=== PATIENT | female | born 1955 | race Caucasian/White ===

== ENCOUNTER → 2021-10-11 00:31 | Outpatient (CLI) | payer OTHER, SELFPAY ==
[2021-10-11 11:07] LABS: SARS-CoV-2 RNA PCR Negative
== END ==
PROVIDERS: PCP Internal Medicine; Visit Provider Internal Medicine
DX: J06.9 Acute upper respiratory infection, unspecified (principal); Z20.822 Contact with and (suspected) exposure to COVID-19
CPT/HCPCS: C9803; U0003; U0005

== ENCOUNTER 2024-10-24 00:35 | Day surgery (SDC) | payer MEDICARE, SELFPAY ==
[2024-10-08 11:59] VITALS: BMI 26.8
--- OUTSIDE RECORDS SUMMARY | 2024-10-24 00:39 | XMS_ITS | Data Portability ---
Author Organization [place] [facility], Main Office Address [address] [place] [address] Care Team Providers Care Mortgage Or Loan Underwriter Name Role Phone VASYL XAVICAROLINA Primary Care Provider LITA KEY Salvage Inspector BRADLEY BEDOLLA Laundry Supervisor GLENNA MERCADO Inside Sales Account Executive BERTO MEZA Web Site Designer MARIA DEL CARMEN GUIDRY Patient Admitting Clerk [phone] Assessment Encounter Date Assessment Date Assessment LastModified by Organization Details LastModified Time 03/20/2024 03/20/2024 02/24/2022: A1C 6.5 TSH/FT4: WNL VIT D 29.9 CMP: BUN/Cr 35/1.46, GFR 36, gluc 119 Chol: TG 205H Urine micro alb: 16.2 CBC: WNL 10/12/2022: A1C 6.2 Gluc 114, BUN 38, Cr 1.43, GFR 37 TG 216 11/29/2022: CBC: WNL 01/09/2023: A1C 6.4 TG 200 Gluc 137, BUN 25, ALP 35L 07/13/2023: A1C 5.9 Urine micro alb 181.5 Gluc 124 PLT 145L 11/12/2023: H/H 11.5/34.4 TG 205 Gluc 129, BUN/Cr 39/1.58, GFR 33, ALB 4.7H, TP WNL 03/18/2024: A1C 6.3 HGB 11.9 TG 242 Gluc 112, BUN/Cr 33/1.48, GFR 35, ALT/AST 36/38, ALB 4.5H, TP WNL Not available 03/20/2024 10:39:13 06/26/2024 06/26/2024 02/24/2022: A1C 6.5 TSH/FT4: WNL VIT D 29.9 CMP: BUN/Cr 35/1.46, GFR 36, gluc 119 Chol: TG 205H Urine micro alb: 16.2 CBC: WNL 10/12/2022: A1C 6.2 Gluc 114, BUN 38, Cr 1.43, GFR 37 TG 216 11/29/2022: CBC: WNL 01/09/2023: A1C 6.4 TG 200 Gluc 137, BUN 25, ALP 35L 07/13/2023: A1C 5.9 Urine micro alb 181.5 Gluc 124 PLT 145L 11/12/2023: H/H 11.5/34.4 TG 205 Gluc 129, BUN/Cr 39/1.58, GFR 33, ALB 4.7H, TP WNL 03/18/2024: A1C 6.3 HGB 11.9 TG 242 Gluc 112, BUN/Cr 33/1.48, GFR 35, ALT/AST 36/38, ALB 4.5H, TP WNL 06/20/2024: TG 267H ALT 31 HGB 11.4 Not available 06/26/2024 10:48:53 08/28/2024 08/28/2024 Assessment: Moderate OSAHS, AHI = 19 Rhinitis Plan: The following were reviewed and explained to the patient: [facility] home sleep study 08/23/22 AHI = 19 PAP compliance downloaded and interpreted x 20 minutes. Data reviewed and explained to the patient. Average apnea/hypopnea index (AHI) is 3.4. Patient used PAP > 4 hours 99% of the time. PAP is set at 10-14 cmH2O. PAP will be reset at 11-14 cmH2O. Keep humidifier @ level 4. Oxygen supplementation: none Keep ramp start at 4 cmH2O. Keep ramp duration at 45 minutes. Keep EPR soft evp global multimedia sales. Increase humidifier level from 4 to 5. Patient is benefiting from PAP therapy. Encouraged patient to maintain PAP use more than 70% of the time. Statement of PAP use and benefits will be sent to the home care store. Educated the patient on problems and solutions associated with positive airway pressure (PAP) use. Difficulty tolerating pressure, mask leaks, intolerance of interface, nasal congestion, claustrophobic response, dry mouth, and unintentional mask removal during sleep were covered. Patient's mask leaks air. We will ensure the mask is situated properly. Patient can wear protective eye covering during sleep, and the mask can be resized. Patient experiences nasal congestion. Patient will use nasal saline spray before starting PAP, use heated PAP humidifier, clean/air dry humidifier reservoir daily, use nasal steroid spray, use ipratropium bromide nasal spray if rhinitis/rhinorrhe a is present or obtain an oronasal/oral interface. Patient experiences claustrophobic response. Patient will practice wearing PAP mask daily while awake and undergo PAP desensitization. We will check fit of patient's mask and provide a sleeker alternative as necessary. Dry mouth is a normal occurrence for people who just start out on PAP therapy because they are not used to air blowing in to the throat to hold open. Dry mouth is exacerbated for people who wear nasal PAP mask and whose jaw drops open during sleep. Not only does this create a much less efficient therapy because of leakage, it also causes dry mouth. There are a couple solutions to help prevent this type of problem. A simple solution would be to wear a chinstrap which essentially holds the jaw in place. A second solution would be a switch to a full face mask which covers both the nose and mouth. Although this is another easy solution, using a full face mask for some could seem claustrophobic or confining. There is no silver bullet solution as no single mask is right for everybody. Sometimes it takes a bit of experimentation to find a PAP mask which best meets the patient's needs as well as fits comfortably. Another tactic is to use a humidifier on your PAP machine. Most new PAP machines have integrated humidifiers. Humidification is mast when dealing with symptoms of dry mouth because the humidifier can supply both warm and room temperate air. Even a small amount of humidity in the airflow will help nasal passages to stay hydrated. If a person is using both a full face mask and a PAP machine with a heated humidifier and is still experiencing dry mouth, an ill-fitted PAP mask might be causing the problem. Leakage can be caused by a mask that is to large or small, the wrong style mask, the cushion is degraded or simply because the mask's straps aren't adjusted correctly. If leakage occurs, dry air from the room can leak in while humidification escapes. The result is reduced humidification within the circuit and resulting in dry throat and mouth. Finally, beyond factors involving the PAP machine and mask, dry mouth can also be caused or worsened by dehydration. The general recommendation to during eight 8 oz. glasses of water a day might be too little for many people. When people drink large amounts of coffee or other caffeine beverages, or sweat a lot during the day, making sure to rehydrate is an important part of PAP therapy. Provided the patient with a list of local home care stores where positive airway pressure (PAP) units, accoutrement, and services are available. Home care store selection is based on patient's insurance carrier. Patient will setup an appointment with [facility] for supplies and pressure adjustments. A major predictor of success with use of PAP is follow-up with both the respiratory supplier and the treating physician. The respiratory supplier optimally will follow-up within two weeks after starting use while the treating physician optimally will follow-up within 90 days after starting therapy to assess adherence and effectiveness of treatment. The download results can show the treating physician information about adherence to treatment, residual AHI while on treatment and presence of large mask leakage. This information is especially helpful if the patient has residual sleepiness despite treatment. General information on sleep disordered breathing, evaluation of sleep disordered breathing, treatment with PAP therapy, and living with PAP therapy were covered. We discussed with the patient the impact of weight on: Sleep disordered breathing Mixed hyperlipidemia Hypertension DM Fatty liver CKD Lumbar DDD Bilateral hip OA We discussed with the patient the benefit of PAP therapy on: Sleep disordered breathing Epilepsy Anxiety/Panic attacks Rhinitis Hypertension DM CKD Educated the patient on sleep hygiene measures. Relaxing rituals to rest easy, understanding foods with positive and negative impact on sleep, creating a peaceful sleep environment, timing of exercise, using herbal sleep aids, and practicing sleep-friendly meditation were covered. To determine how much sleep is needed, the patient will assess where she falls on the spectrum, examine what lifestyle factors such as work schedules and stress are affecting the quality and quantity of sleep. In general, adults need 7-9 hours of sleep. Educated the patient regarding foods that promote sleep. These include but are not limited to cherries, bananas, toast, oatmeal, and warm milk. Educated the patient regarding foods and drinks to avoid before bedtime. These include but are not limited to aged cheese, chocolate, spicy foods, tomato-based sauces, soy, ginseng tea and processed meat. Advocated influenza vaccination annually and pneumonia vaccination ANGÉLICA. Advocated weight loss through diet and exercise. Patient's ideal body weight according to height and gender is up to 130 lbs. Encouraged patient to adjust caloric intake to maintain/achieve ideal body weight, emphasizing on fruits, vegetables, whole grains, and fat-free or low-fat products. These include lean meats, poultry, fish, beans, eggs, and nuts and foods that are low in saturated fats, trans-fats, cholesterol, salt (sodium), and glycemic index. Stressed the importance of regular exercise up to the patient's capacity limits. In this case, we recommend 20 min daily walking, 2 days a week of resistance training. Patient to monitor BP daily and bring records to PCP for further management. Follow-up: 1 year, August 2025 [email or web address] Not available 08/28/2024 11:01:35 10/02/2024 10/02/2024 02/24/2022: A1C 6.5 TSH/FT4: WNL VIT D 29.9 CMP: BUN/Cr 35/1.46, GFR 36, gluc 119 Chol: TG 205H Urine micro alb: 16.2 CBC: [facility] 10/12/2022: A1C 6.2 Gluc 114, BUN 38, Cr 1.43, GFR 37 TG 216 11/29/2022: CBC: [facility] 01/09/2023: A1C 6.4 TG 200 Gluc 137, BUN 25, ALP 35L 07/13/2023: A1C 5.9 Urine micro alb 181.5 Gluc 124 PLT 145L 11/12/2023: H/H 11.5/34.4 TG 205 Gluc 129, BUN/Cr 39/1.58, GFR 33, ALB 4.7H, TP WNL 03/18/2024: A1C 6.3 HGB 11.9 TG 242 Gluc 112, BUN/Cr 33/1.48, GFR 35, ALT/AST 36/38, ALB 4.5H, TP WNL 06/20/2024: TG 267H ALT 31 HGB 11.4 09/19/2024: Chol 219, TG 177, LDL 141 09/30/2024: A1C 6.1 TG 153 GFR 49, Cr 1.22, BUN 27 Not available 10/02/2024 17:07:27 Plan of Treatment Reminders Order Date Submit Date Provider Last Modified By Organization Details Last Modified Time Details Appointments Any 15 2024 03:30P Anupama jenkins MD Not available Not available Not available Any 30 2025 10:00A Anupama Montilla MD Not available Not available Not available Lab lipid panel, serum [address] (Lab), [address] [place], [address], 10/02/2024 17:09:23 CBC w/ auto diff [address] (Lab), [address] [place], [address], 10/02/2024 17:09:23 CMP, serum or plasma [address] (Lab), [address] [place], [address], 10/02/2024 17:09:23 TSH, serum or plasma [address] (Lab), [address] [place], [address], 10/02/2024 17:09:24 glycohemo globin, total, blood [address] (Lab), [address] [place], [address], 10/02/2024 17:09:23 microalbu min, urine [address] (Lab), [address] [place], [address], 10/02/2024 17:09:24 vitamin B12 + folate, serum or blood 2024 025 [email or web address] [facility] (Lab), [address] [place], [address], 10/02/2024 17:09:24 [facility] panel, [facility] [address] [place], [address], 09/20/2024 09:47:07 CBC w/ auto diff [address] (Lab), [address] [place], [address], 06/26/2024 12:05:35 CMP, serum or plasma [address] (Lab), [address] [place], [address], 06/26/2024 12:05:35 TSH, serum or plasma [address] (Lab), [address] [place], [address], 06/26/2024 12:05:35 glycohemo globin, total, blood [address] (Lab), [address] [place], [address], 06/26/2024 12:05:35 microalbu min, urine [address] (Lab), [address] [place], [address], 06/26/2024 12:05:35 vitamin B12 + folate, serum or blood [address] (Lab), [address] [place], [address], 06/26/2024 12:05:36 lipid panel, serum [address] (Lab), [address] [place], [address], 09/16/2024 10:51:56 CBC w/ auto diff [address] (Lab), [address] [place], [address], 09/16/2024 10:51:56 CMP, serum or plasma [address] (Lab), [address] [place], [address], 09/16/2024 10:51:56 TSH, serum or plasma [address] (Lab), [address] [place], [address], 09/16/2024 10:51:57 glycohemo globin, total, blood [address] (Lab), [address] [place], [address], 09/16/2024 10:51:57 microalbu min, urine [address] (Lab), [address] [place], [address], 09/16/2024 10:51:57 vitamin B12 + folate, serum or blood [address] (Lab), [address] [place], [address], 09/16/2024 10:51:57 Referral podiatris t referral - Please call patient to schedule an appointme nt. Thank you. 2024 025 CLEM Ramirez DPM, [address] [facility], [place], [address], 10/12/2024 17:09:29 cardiolog ist referral - Please call patient to schedule an appointme nt. Thank you. 2024 025 [place], [address] [address], [place], [address], 10/03/2024 17:35:15 gastroent erologist referral - Please call patient to schedule an appointme nt. Thank you. 2024 025 VAUGHN Mercado [facility], [address] [facility] [address], [place], [address], 10/03/2024 17:10:32 pulmonolo gist referral - Please call patient to schedule an appointme nt. Thank you. 2024 025 [email or web address] Zaheer Montilla MD, [address] [facility] [place] [place], [address], 10/15/2024 08:57:26 nephrolog ist referral - Please call patient to schedule an appointme nt. Thank you. 2024 025 [email or web address] [place], [address] [address], [place], [address], 10/15/2024 08:57:25 podiatris t referral - Please call patient to schedule an appointme nt. Thank you. 2024 025 jean paul Ramirez DPM, [address], [address], [place], [address], 10/15/2024 08:57:26 cardiolog ist referral - Please call patient to schedule an appointme nt. Thank you. 2024 025 [place], [address] [address], [address], [place], [address], 10/15/2024 08:57:24 gastroent erologist referral - Please call patient to schedule an appointme nt. Thank you. 2024 025 [email or web address] Glenna DE JESUSP, [address], [address], 08/14/2024 09:43:36 pulmonolo gist referral 2023 024 [email or web address] Zaheer Montilla MD, [address] [place], [address], 03/27/2024 09:00:33 nephrolog ist referral 2023 024 [email or web address] [place], [address], [address], [place], [address], 03/20/2024 16:04:44 podiatris t referral - Please call patient to schedule. 2023 024 [email or web address] Hung Ramirez DPM, [address] [facility], [address], [address], 03/27/2024 09:00:50 cardiolog ist referral 2023 024 [email or web address] [place], [address] [address], [address], [place], [address], 03/20/2024 16:01:59 gastroent erologist referral 2023 024 Glenna POLANCO, [address], [address], 03/20/2024 16:02:01 Procedures colonosco py screening (PROC) - Please call patient to schedule an appointme nt. Thank you. [address] [facility], [address], [address], [place], [address], 08/18/2024 08:48:49 Surgeries None recorded. Imaging MAMMO, screening , digital, bilateral - Please call patient to schedule. 2024 025 ATHENAFA[facility], [address], [place], [address], 10/06/2024 13:10:35 MAMMO, screening , digital, bilateral - Pelase call patient to schedule. [address], [address], [place], [address], 09/24/2024 14:35:55 MAMMO, screening , digital, bilateral - no auth required [address] ([facility]), [address] [place], [address], 03/24/2024 10:15:36 Medication Orders rosuvasta tin 10 mg tablet 2024 025 [facility] [address] [facility], [address] [place], [address], 10/02/2024 17:08:06 Patient TargetsNo targets recorded. Patient Instructions Encounter Date Encounter Id Patient Instructions Last Modified By Organization Details Last Modified Time 03/20/2024 [id number] dementia rating scale-2* [email or web address] Not available 05/05/2024 16:51:19 alcohol misuse* Not available 05/05/2024 16:51:51 multi-dimensiona l health assessment questionnaire* [email or web address] Not available 05/05/2024 16:51:05 [place] Advance Directives [email or web address] Not available 03/20/2024 10:42:45 advance care planning: care instructions [email or web address] Not available 03/20/2024 10:42:47 advance directiv es: care instructions [email or web address] 2 Not available 03/20/2024 10:42:46 diabetic eye exam* [email or web address] Not availa ble 09/22/2024 08:16:[address] [facility] Plan and Screening Recommendations Advance Directives - Do you have one? Advance Directives - Do we have your advance directive on file in your health record? Primary Prevention/Interven tion (prevents or decreases the chance of common diseases from occurring) Smoking Risk: Alcohol Misuse Screening: Weight: Physical activity: Nutrition: Fall Risk (screened today): Vaccines Pneumococcal: Influenza: Chronic Disease Risks Stroke: Active diagnosis, Continue current treatment plan Heart Attack: Active diagnosis, Continue current treatment plan Clogging of the Arteries: Active diagnosis, Continue current treatment plan Diabetes: Active diagnosis, Continue current treatment plan Secondary Prevention/Interven tion (detects treatable diseases before they may cause symptoms, disability, or ) Breast Cancer Screening with mammogram: Cervical/Uterine/Ov ronel Cancer Screening: Osteoporosis Screening: Date Screening Last Performed: Colon Cancer Screening: Date Screening Last Performed: Eye Disease Screening: Your next exam in: Dementia Risk: Depression Screening: Active diagnosis, Continue current treatment plan [email or web address] Not available 03/20/2024 08:39:15 Reason for Referral Laundry Supervisor Referral for He art murmur Referring Physician: Sabine Holt [facility], Encounter Date: 03/20/2024 Web Site Designer Referral for Ch ronic kidney disease Referring Physician: Jack Thompson [facility], Encounter Date: 03/20/2024 Patient Admitting Clerk Referral for Type 2 diabetes mellitus without complication Please call patient to schedule. Referring Physician: Jack Thompson Medicine, Encounter Date: 03/20/2024 Electrical Line Worker Referral for O bstructive sleep apnea syndrome Referring Physician: Jack Thompson Medicine, Encounter Date: 03/20/2024 Inside Sales Account Executive Referral for Liver enzymes level above reference range Referring Physician: Jack Thompson Medicine, Encounter Date: 03/20/2024 Laundry Supervisor Referral for He art murmur Please call patient to schedule an appointment. Thank you. Referring Physician: Sabine Holt Internal Medicine, Encounter Date: 06/26/2024 Web Site Designer Referral for Ch ronic kidney disease Please call patient to schedule an appointment. Thank you. Referring Physician: Sabine Holt Internal Medicine, Encounter Date: 06/26/2024 Patient Admitting Clerk Referral for Type 2 diabetes mellitus without complication Please call patient to schedule an appointment. Thank you. Referring Physician: Sabine Holt Internal Medicine, Encounter Date: 06/26/2024 Electrical Line Worker Referral for O bstructive sleep apnea syndrome Please call patient to schedule an appointment. Thank you. Referring Physician: Sabine Holt Internal Medicine, Encounter Date: 06/26/2024 Inside Sales Account Executive Referral for Liver enzymes level above reference range Please call patient to schedule an appointment. Thank you. Referring Physician: Sabine Holt Internal Medicine, Encounter Date: 06/26/2024 Laundry Supervisor Referral for He art murmur Please call patient to schedule an appointment. Thank you. Referring Physician: Sabine Holt Internal Medicine, Encounter Date: 10/02/2024 Patient Admitting Clerk Referral for Type 2 diabetes mellitus without complication Please call patient to schedule an appointment. Thank you. Referring Physician: Sabine Holt Internal Medicine, Encounter Date: 10/02/2024 Inside Sales Account Executive Referral for Liver enzymes level above reference range Please call patient to schedule an appointment. Thank you. Referring Physician: Sabine Holt Internal Medicine, Encounter Date: 10/02/2024 Results Created Date Observation Date Name Description Value Unit Range Abnormal Flag Note LastModifiedBy Organization Detail LastModifiedTime 03/18/20 24 03/18/2024 COMPR EHENS MARCEL METAB OLIC PANEL sodium 138 mmol/ L 137-14 5 Not Available [facility] (Lab) [address] [place], [address], 03/18/2024 12:40:17 03/18/20 24 03/18/2024 COMPR EHENS MARCEL METAB OLIC PANEL potassium 4.6 mmol/ L 3.5-5. 1 Not Available [facility] (Lab) [address] [place], [address], 03/18/2024 12:40:17 03/18/20 24 03/18/2024 COMPR EHENS MARCEL METAB OLIC PANEL chloride 103 mmol/ L 98-107 Not Available [facility] (Lab) [address] [place], [address], 03/18/2024 12:40:17 03/18/20 24 03/18/2024 COMPR EHENS MARCEL METAB OLIC PANEL carbon dioxide 28 mmol/ L 22-30 Not Available [facility] (Lab) [address] [place], [address], 03/18/2024 12:40:17 03/18/20 24 03/18/2024 COMPR EHENS MARCEL METAB OLIC PANEL anion gap 11.6 mmol/ L 14-22 low Not Available [facility] (Lab) [address] [place], [address], 03/18/2024 12:40:17 03/18/20 24 03/18/2024 COMPR EHENS MARCEL METAB OLIC PANEL glucose 112 mg/dL 70-99 high Not Available [facility] (Lab) [address] [place], [address], 03/18/2024 12:40:17 03/18/20 24 03/18/2024 COMPR EHENS MRACEL METAB OLIC PANEL BUN 33 mg/dL 8-19 high Not Available [facility] (Lab) [address] [place], [address], 03/18/2024 12:40:17 03/18/20 24 03/18/2024 COMPR EHENS MARCEL METAB OLIC PANEL creatinine 1.48 mg/dL 0.66-1 .25 high Not Available [facility] (Lab) [address] [place], [address], 03/18/2024 12:40:17 03/18/20 24 03/18/2024 COMPR EHENS MARCEL METAB OLIC PANEL GFR 35 Refer ence Range : [place] GFR Healt hy Adult : >60 mL/mi n/1.7 3 m2 Chron ic Kidne y Disea se: 15-60 mL/mi n/1.7 3 m2 Kidne y Failu re: <15/m L/min /1.73 m2 www.n iddk. nih.g ov The MDRD study equat ion has not been valid ated in child krishan <18 years of age; pregn ant women ; the elder ly >85 years of age; or in some racia l or ethni c subgr oups, such as Hispa nics. Outsi de the valid ated sai eters , estim ated GFR is less accur ate, requi ring clini candace judgm ent on a case- by-ca se basis . Clini candace inter preta tion for other races and ages must be made by the clini aysha. The MDRD study equat ion has not been valid ated for the evalu ation of serum creat inine relat ed to nutri jesus l statu s or medic ation usage . For perso ns <18 years of age, a pedia tric GFR calcu lator is avail able on the [facility] websi te: https ://gato higgins.o rg/pr ofess ional s/kdo qi/gf r_cal culat or Not Available [facility] (Lab) [address] [place], [address], 03/18/2024 12:40:17 03/18/20 24 03/18/2024 COMPR EHENS MARCEL METAB OLIC PANEL alkaline phosphatase 43 U/L 38-126 Not Available [facility] (Lab) [address] [place], [address], 03/18/2024 12:40:17 03/18/20 24 03/18/2024 COMPR EHENS MARCEL METAB OLIC PANEL alanine aminotransfe rase 36 U/L 0-35 high Not Available [facility] (Lab) [address] [place], [address], 03/18/2024 12:40:17 03/18/20 24 03/18/2024 COMPR EHENS MARCEL METAB OLIC PANEL aspartate aminotransfe rase 38 U/L 15-37 high Not Available [facility] (Lab) [address] [place], [address], 03/18/2024 12:40:17 03/18/2003/18/2024 COMPR EHENS MARCEL METAB OLIC PANEL bilirubin, total 0.30 mg/dL 0.20-1 .30 Not Available [facility] (Lab) [address] [place], [address], 03/18/2024 12:40:17 03/18/20 24 03/18/2024 COMPR EHENS MARCEL METAB OLIC PANEL calcium 10.2 mg/dL 8.4-10 .2 Not Available [facility] (Lab) [address] [place], [address], 03/18/2024 12:40:17 03/18/20 24 03/18/2024 COMPR EHENS MARCEL METAB OLIC PANEL total protein 6.7 g/dL 6.3-8. 2 Not Available [facility] (Lab) [address] [place], [address], 03/18/2024 12:40:17 03/18/20 24 03/18/2024 COMPR EHENS MARCEL METAB OLIC PANEL albumin 4.5 g/dL 3.0-4. 4 high Not Available [facility] (Lab) [address] [place], [address], 03/18/2024 12:40:17 11/12/03/18/2024 COMPR EHENS MARCEL METAB OLIC PANEL globulin 2.2 g/dL 2.6-4. 2 low Not Available [facility] (Lab) [address] [place], [address], 03/18/2024 12:40:17 03/18/20 24 03/18/2024 COMPR EHENS MARCEL METAB OLIC PANEL A/G ratio 2.0 ratio 1.0-2. 0 Not Available [facility] (Lab) [address] [place], [address], 03/18/2024 12:40:17 03/18/2003/18/2024 LIPID PANEL cholesterol 163 mg/dL 140-19 9 NIH VIKA NSUS RECOM MENDA TION FOR CARSON STERO L: ADULT CHILD LOW RISK: <200 <170 BORDE RLINE : <200- 239 ----- HIGH RISK: >240 >200 Not Available [facility] (Lab) [address] [place], [address], 03/18/2024 12:40:21 03/18/20 24 03/18/2024 LIPID PANEL triglyceride s 242 mg/dL 0-150 high NIH VIKA NSUS REPOR T RECOM MENDA TION FOR TRIGL YCERI ALESSANDRA: ADULT CHILD LOW RISK: <150 ----- BODER LINE: 150-1 99 ----- HIGH RISK: >200 ----- Not Available [facility] (Lab) [address] [place], [address], 03/18/2024 12:40:21 03/18/20 24 03/18/2024 LIPID PANEL HDL cholesterol 43 mg/dL 40- Not Available [facility] (Lab) [address] [place], [address], 03/18/2024 12:40:21 03/18/20 24 03/18/2024 LIPID PANEL LDL cholesterol, calculated 72 mg/dL 0-130 NIH VIKA NSUS REPOR T RECOM MENDA TIONS FOR LDL: ADULT CHILD LOW RISK <130 <110 (OPTI MAL LDL) <100 ----- BORDE RLINE : 130-1 59 ----- HIGH RISK: >160 >130 A TRIGL YCERI DE RESUL T >400 INVAL IDATE S THE CALCU LATIO N FOR LDL FRACT IONAT ION - THE LDL RESUL T WILL NOT BE REPOR KEZIA. Not Available [facility] (Lab) [address] [place], [address], 03/18/2024 12:40:21 03/18/20 24 03/18/2024 CBC/C OMPLE TE BLD COUNT W/DIF F white blood cells 6.1 x10'3 /uL 4.2-10 .8 Not Available [facility] (Lab) [address] [place], [address], 03/18/2024 12:44:10 03/18/2003/18/2024 CBC/C OMPLE TE BLD COUNT W/DIF F red blood cells 3.92 x10'6 /uL 3.80-5 .20 Not Available [facility] (Lab) [address] [place], [address], 03/18/2024 12:44:10 03/18/20 24 03/18/2024 CBC/C OMPLE TE BLD COUNT W/DIF F hemoglobin 11.9 g/dL 12.0-1 5.6 low Not Available [facility] (Lab) [address] [place], [address], 03/18/2024 12:44:10 03/18/20 24 03/18/2024 CBC/C OMPLE TE BLD COUNT W/DIF F hematocrit 36.0 % 35.7-4 5.7 Not Available [facility] (Lab) [address] [place], [address], 03/18/2024 12:44:10 03/18/20 24 03/18/2024 CBC/C OMPLE TE BLD COUNT W/DIF F mean red cell volume 91.8 fL 82.0-9 9.0 Not Available [facility] (Lab) [address] [place], [address], 03/18/2024 12:44:10 03/18/20 24 03/18/2024 CBC/C OMPLE TE BLD COUNT W/DIF F mean red cell hemoglobin 30.4 pg 27.0-3 3.0 Not Available [facility] (Lab) [address] [place], [address], 03/18/2024 12:44:10 03/18/20 24 03/18/2024 CBC/C OMPLE TE BLD COUNT W/DIF F mean RBC HGB concentratio n 33.1 g/dL 31.0-3 6.0 Not Available [facility] (Lab) [address] [place], [address], 03/18/2024 12:44:10 03/18/20 24 03/18/2024 CBC/C OMPLE TE BLD COUNT W/DIF F red cell distribution width 11.9 % 11.8-1 5.5 Not Available [facility] (Lab) [address] [place], [address], 03/18/2024 12:44:10 03/18/20 24 03/18/2024 CBC/C OMPLE TE BLD COUNT W/DIF F platelets 153 x10'3 /uL 150-40 0 Not Available [facility] (Lab) [address] [place], [address], 03/18/2024 12:44:10 03/18/20 24 03/18/2024 CBC/C OMPLE TE BLD COUNT W/DIF F mean platelet volume 11.3 fL 9.0-12 .4 Not Available [facility] (Lab) [address] [place], [address], 03/18/2024 12:44:10 03/18/20 24 03/18/2024 CBC/C OMPLE TE BLD COUNT W/DIF F neutrophils 49.8 % 39.0-7 2.0 Not Available [facility] (Lab) [address] [place], [address], 03/18/2024 12:44:10 03/18/2003/18/2024 CBC/C OMPLE TE BLD COUNT W/DIF F lymphocytes 35.7 % 16.0-4 7.0 Not Available [facility] (Lab) [address] [place], [address], 03/18/2024 12:44:10 03/18/2003/18/2024 CBC/C OMPLE TE BLD COUNT W/DIF F monocytes 12.3 % 5.0-12 .0 high Not Available [facility] (Lab) [address] [place], [address], 03/18/2024 12:44:10 03/18/2003/18/2024 CBC/C OMPLE TE BLD COUNT W/DIF F eosinophils 1.3 % 1.0-7. 0 Not Available [facility] (Lab) [address] [place], [address], 03/18/2024 12:44:10 03/18/2003/18/2024 CBC/C OMPLE TE BLD COUNT W/DIF F basophils 0.7 % 0.0-2. 0 Not Available [facility] (Lab) [address] [place], [address], 03/18/2024 12:44:10 03/18/2003/18/2024 CBC/C OMPLE TE BLD COUNT W/DIF F immature granulocytes 0.2 % 0.00-0 .50 Not Available [facility] (Lab) [address] [place], [address], 03/18/2024 12:44:10 03/18/20 24 03/18/2024 CBC/C OMPLE TE BLD COUNT W/DIF F neutrophils, absolute count 3.04 x10'3 /uL 1.5-8. 0 Not Available [facility] (Lab) [address] [place], [address], 03/18/2024 12:44:10 03/18/20 24 03/18/2024 CBC/C OMPLE TE BLD COUNT W/DIF F lymphocytes, absolute count 2.18 x10'3 /uL 1.07-3 .43 Not Available [facility] (Lab) [address] [place], [address], 03/18/2024 12:44:10 03/18/2003/18/2024 CBC/C OMPLE TE BLD COUNT W/DIF F monocytes, absolute count 0.75 x10'3 /uL 0.29-0 .99 Not Available [facility] (Lab) [address] [place], [address], 03/18/2024 12:44:10 03/18/20 24 03/18/2024 CBC/C OMPLE TE BLD COUNT W/DIF F eosinophils, absolute count 0.08 x10'3 /uL 0.02-0 .53 Not Available [facility] (Lab) [address] [place], [address], 03/18/2024 12:44:10 03/18/20 24 03/18/2024 CBC/C OMPLE TE BLD COUNT W/DIF F basophils, absolute count 0.04 x10'3 /uL 0.01-0 .08 Not Available [facility] (Lab) [address] [place], [address], 03/18/2024 12:44:10 03/18/20 24 03/18/2024 CBC/C OMPLE TE BLD COUNT W/DIF F immature granulocytes ,absolute 0.01 x10'3 /uL 0.00-0 .05 Not Available [facility] (Lab) [address] [place], [address], 03/18/2024 12:44:10 03/18/20 24 03/18/2024 CBC/C OMPLE TE BLD COUNT W/DIF F nucleated red blood cells 0.0 % -0 Not Available [facility] (Lab) [address] [place], [address], 03/18/2024 12:44:10 03/18/20 24 03/18/2024 CBC/C OMPLE TE BLD COUNT W/DIF F NRBC# 0.00 x10'3 /uL Not Available [facility] (Lab) [address] [place], [address], 03/18/2024 12:44:10 03/18/2003/18/2024 TSH W/REF JESSI FT4 TSH with reflex free T4 0.734 uIU/m L 0.465- 4.680 Not Available [facility] (Lab) [address] [place], [address], 03/18/2024 13:40:46 03/18/2003/18/2024 MICRO ALBUM IN RANDO M URINE microalbumin , urine 6.5 mg/L 0.0-16 .6 Not Available [facility] (Lab) [address] [place], [address], 03/18/2024 14:07:55 03/18/2003/18/2024 VITAM IN B12 (AHMET BENITEZ ) vb12 465 pg/mL 239-93 1 Not Available [facility] (Lab) [address] [place], [address], 03/18/2024 14:08:21 03/18/2003/18/2024 FOLAT E, SERUM /PLAS MA folate >20.0 NG/mL 2.76-2 0.0 Not Available [facility] (Lab) [address] [place], [address], 03/18/2024 14:08:25 03/18/20 24 03/18/2024 HEMOG LOBIN A1C HA1C 6.3 % 4.0-6. 0 high Diabe james Jacksone sujata Crite mike: <5.7% Consi stent with absen ce of diabe james 5.7-6 .4% Consi stent with incre ased risk for diabe james (pred iabet es) >OR=6 .5% Consi stent with diabe james REFER ENCE: Diabe james Care 2016, 39(Gaston ppl.1 ):s13 -s22 Not Available [facility] ([facility]) [address] [place], [address], 03/18/2024 18:41:35 Result Notes None recorded. Problems Name Problem SNOMED Code Status Onset Date Resolution Date Notes Provider Name and Address Organization Details Recorded Time Irritable bowel syndrome 87758871 Active Not Available [employer] 4 08:16:22 Seizure disorder 807141921 Active Not Available [facility] 4 08:16:22 Type 2 diabetes mellitus without complicati on 605669470 Active 2020 Not Available [employer] 4 08:16:22 Hypertensi ve disorder 64143820 Active 2021 Not Available [facility] 4 08:16:22 Hypothyroi dism 44860902 Active Not Available [facility] 4 08:16:22 Calcaneal spur 84518624 Active 2018 Not Available [facility] 4 08:16:23 Essential hypertensi on 01035421 Active Not Available [facility] 4 08:16:23 Obstructiv e sleep apnea syndrome 77414006 Active 2021 Not Available [facility] 4 08:16:23 COVID-19 255289904 Active 2022 Not Available [facility] 4 08:16:23 Allergic rhinitis 04376382 Active 2022 Not Available [facility] 4 08:16:23 Moderate recurrent major depression 74160537 Active 2022 Not Available [facility] 4 08:16:22 Chronic kidney disease 952727047 Active 2022 Not Available [facility] 4 08:16:23 Liver enzymes level above reference range 264866385 Active 2022 Not Available [facility] 4 08:16:23 Vitamin D deficiency 17844293 Active 2022 Not Available [facility] 4 08:16:22 Serum vitamin B12 below reference range 523068156 Active 2023 Sabine modi MD [address], [place], [address] , [employer] 4 11:36:44 Anemia 887495477 Active 2023 Sabine modi MD [address], [address], [place], [address] , [facility] [facility] [employer] 4 10:30:20 Cramping pain 940496546 Active 2024 Sabine modi MD [address], [place], [address] , [facility] [facility] [employer] 5 13:52:22 Heart murmur 55051142 Active 2024 Sabine modi MD [address], [address], [place], [address] , [facility] [facility] [employer] 5 13:52:22 Hyperlipid emia 09606517 Active 2024 Sabine modi MD [address], [address], [place], [address] , [facility] [employer] 5 13:52:23 Pain of bilateral hip joints 9919321174587 9100 Active 2024 Sabine modi MD [address], [address], [place], [address] , [facility] [employer] 5 13:52:23 Dementia 87993542 Active 2024 Sabine modi MD [address], [place], [address] , [employer] 5 13:52:23 Thrombocyt openic disorder 438750170 Active 2024 Sabine modi MD [address], [place], [address] , [employer] 5 13:52:23 Notes:Medical History: Epile psy Anxiety/Panic attacks COVID infection 08/2021 Rhinitis Obesity with mod OSAHS, AHI = 19, 08/23/22, on autoCPAP c/o Provider Plus Hypothyroidism Mixed hyperlipidemia Hypertension EF 60% T2DM with microalbuminuria Mild MR Fatty liver IBS CKD Vit D deficiency Lumbar DDD Bilateral hip OA Procedure History: T&A 1962 Appendectomy 1973 Bilateral breast cysts excision 1992 Left oophorocystectomy 1993 TRE-LSO 1996 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 Procedures Surgical History Date Name Laterality Status Provider Name and Address Organization Details Recorded Time 07/26/19 25 Callus Debridement 2-4 completed Maria Del Carmen Guidry DPM [address], [address], [place], [address], [employer] [facility] 07/28/2024 08:54:51 03/20/20 24 Medicare Wellness CPT Code, Initial completed Pankaj Martínez LPN [employer] [facility] [employer] 03/20/2024 08:39:16 07/24/19 24 Callus Debridement 2-4 completed Maria Del Carmen Guidry DPM [address], [place], [address], [employer] 07/24/2023 11:45:19 09/09/19 23 Colonoscopy completed MALOU Umaña [employer] [facility] [employer] 10/17/2022 10:34:24 10/11/19 16 Exc tr-ext b9+syeda 0.5 cm< completed Not Available [facility] 07/05/2022 02:40:14 10/11/19 16 Intmd rpr s/a/t/ext 2.5 cm/< completed Not Available [facility] 07/05/2022 02:40:14 03/18/20 14 Date of Last Colonoscopy completed Not Available [facility] 07/05/2022 02:40:11 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 Surgery completed Not Available [facility] 07/05/2022 02:40:14 Appendectomy completed Not Available [facility] 07/05/2022 02:40:14 Breast Surgery completed Not Available [facility] 07/05/2022 02:40:14 biopsy of breast completed Not Available [facility] 07/05/2022 02:40:14 cataract surgery completed Not Available [facility] 07/05/2022 02:40:14 excision completed Not Available [facility] 02:40:14 Hysterectomy completed SOLIS Turner - [facility]e [employer] 06/26/2024 10:13:40 Imaging Results None recorded. Procedure Notes None recorded. Medical Equipment None Reported. Allergies Allergen ID Allergen Name Allergen Category Reaction Reaction Severity Criticality Documentation Date Start Date Code Code System Note Provider Name and Address Organization Details Recorded Time 4129 metformin medicatio n Not available Not available Not available 07/05/2022 6809 RxNorm Not Available [facility] 3 02:53:32 4130 hydrochlo rothiazid e medicatio n other Not available Not available 07/05/2022 5487 RxNorm Not Available [facility] 3 02:53:32 4131 erythromy alberta medicatio n Not available Not available Not available 07/05/2022 4053 RxNorm Not Available [facility] 3 02:53:32 Medications Name Sig Start Date Stop Date Status Note LastModified by Organization Details LastModified Time nifedipine ER 30 mg tablet,ext ended release 24 hr TAKE 1 TABLET (30 MG TOTAL) BY MOUTH EVERY NIGHT DO NOT CRUSH CHEW OR SPLIT 11/14 completed Not Available Not Available Not Available celecoxib 200 mg capsule 09/12 completed Not Available Not Available Not Available cyclobenza zac 10 mg tablet TAKE 1 TABLET BY MOUTH EVERY DAY NEEDED. NO ALCOHOL, DRIVING, OR WITH SEDATING MEDS 02/13 completed Not Available Not Available Not Available amoxicilli n 500 mg capsule Take 4 capsules every day by oral route as directed for 10 days. active Not Available Not Available No t Available pioglitazo ne 15 mg tablet TAKE 1 TABLET BY MOUTH EVERY MORNING. 01/02 completed Not Available Not Available Not Available atorvastat in 40 mg tablet Take 1 tablet every day by oral route. 04/27 completed Not Available Not Available Not Available azelastine 0.05 % eye drops 06/20 completed Not Available Not Available Not Available clonidine HCl 0.1 mg tablet TAKE ONE TABLET BY MOUTH ONCE DAILY NEEDED WHEN BLOOD PRESSURE IS 160/90 OR HIGHER 06/03 completed Not Available Not Available Not Available prednisone 10 mg tablet TAKE 1 TAB BY MOUTH 3 TIMES A DAY FOR 3 DAYS, 1 TAB 2 TIMES A DAY X2 DAYS, 1 TAB ONCE A DAY X1 DAY 02/28 completed Not Available Not Available Not Available nabumetone 750 mg tablet Take 1 tablet twice a day by oral route as needed for 15 days. active Not Available Not Available No t Available ammonium lactate 12 % lotion APPLY TO FEET IN THE MORNING active Not Available Not Available No t Available atorvastat in 10 mg tablet TAKE ONE TABLET BY MOUTH ONCE DAILY active Not Available Not Available No t Available ofloxacin 0.3 % eye drops 12/24 completed Not Available Not Available Not Available fluconazol e 150 mg tablet TAKE 1 TABLET BY MOUTH DAILY 12/19 completed Not Available Not Available Not Available cephalexin 250 mg capsule Take 1 capsule every 6 hours by oral route for 7 days. 10/08 completed Not Available Not Available Not Available meloxicam 15 mg tablet Take 1 tablet every day by oral route. active Not Available Not Available No t Available lisinopril 20 mg tablet Take 1 tablet every day by oral route. active Not Available Not Available No t Available prednisone 20 mg tablet TAKE 2 TABLETS BY MOUTH EVERY DAY WITH FOOD FOR 5 DAYS 03/20 completed Not Available Not Available Not Available atenolol 25 mg tablet TAKE 1 TABLET BY MOUTH EVERY DAY AT NIGHT 10/28 completed Not Available Not Available Not Available torsemide 10 mg tablet TAKE 1 TABLET BY MOUTH EVERY MORNING 07/18 completed Not Available Not Available Not Available melatonin 3 mg tablet Take 1 tablet as needed by oral route at bedtime. 08/28 completed Not Available Not Available Not Available nifedipine ER 30 mg tablet,ext ended release TAKE 1 TABLET BY MOUTH EVERY DAY 03/20 completed Not Available Not Available Not Available chlorthali done 25 mg tablet TAKE 0.5 TABLETS (12.5 MG TOTAL) BY MOUTH 1 (ONE) TIME EACH DAY IN THE MORNING active Not Available Not Available No t Available tramadol 50 mg tablet Take 1 tablet every day by oral route as needed for 30 days. active Not Available Not Available No t Available triamcinol one acetonide 0.1 % topical cream APPLY A THIN LAYER TO THE BOTTOM OF FEET IN THE EVENING 03/26 completed Not Available Not Available Not Available spironolac tone 25 mg tablet TAKE 1/2 TABLET BY MOUTH EVERY MORNING 06/26 completed Not Available Not Available Not Available ketorolac 0.5 % eye drops active Not Available Not Available Not Available prednisone 10 mg tablets in a dose pack Take 1 tab by mouth, 3 times a day for 3 daysTake 1 tab by mouth 2 times a day for 2 daysTake 1 tab by mouth once a day for 1 day 02/28 completed Not Available Not Available Not Available meloxicam 7.5 mg tablet Take 1 tablet twice a day by oral route as needed for 30 days. 12/24 completed Not Available Not Available Not Available oxycodone- acetaminop hen 5 mg-325 mg tablet 11/08 completed Not Available Not Available Not Available betamethas one, augmented 0.05 % lotion 10/08 completed Not Available Not Available Not Available prednisolo ne acetate 1 % eye drops,susp ension 12/24 completed Not Available Not Available Not Available malathion 0.5 % lotion 05/26 completed Not Available Not Available Not Available Kenalog 10 mg/mL suspension for injection In office injectio n administ ered by the provider 02/[address] [facility]: [id number], [id number] , 024 Not Available Not Available Not Available cephalexin 500 mg capsule 07/19 completed Not Available Not Available Not Available paroxetine 30 mg tablet TAKE 1 TABLET BY MOUTH EVERY DAY IN THE MORNING 2024 active Not Available Not Available Not Avai lable paroxetine 20 mg tablet TAKE ONE TABLET BY MOUTH ONCE DAILY active Not Available Not Available No t Available lisinopril 10 mg tablet TAKE ONE TABLET BY MOUTH ONCE DAILY 12/24 completed Not Available Not Available Not Available polymyxin B sulfate 10,000 unit-trime thoprim 1 mg/mL eye drops INSTILL 1 DROP INTO AFFECTED EYE(S) BY OPHTHALM IC ROUTE EVERY 4- 6 HOURS X 7 DAYS 07/11 completed Not Available Not Available Not Available hydrochlor othiazide 12.5 mg capsule Take 1 capsule every day by oral route for 90 days. 05/08 completed Not Available Not Available Not Available nystatin-t riamcinolo ne 100,000 unit/g-0.1 % topical cream APPLY TO THE AFFECTED AREA(S) BY TOPICAL ROUTE 2 TIMES PER DAY IN THE 1MORNING AND EVENING active Not Available Not Available No t Available Unithroid 100 mcg tablet TAKE 1 TABLET BY MOUTH EVERY DAY IN THE MORNING active Not Available Not Available No t Available diclofenac sodium 75 mg tablet,del ayed release 09/12 completed Not Available Not Available Not Available hydroxyzin e HCl 25 mg tablet 10/08 completed Not Available Not Available Not Available gabapentin 100 mg capsule TAKE 2 CAPSULES (200 MG TOTAL) BY MOUTH EVERY NIGHT 07/11 completed Not Available Not Available Not Available ergocalcif rashel (vitamin D2) 1,250 mcg (50,000 unit) capsule TAKE 1 CAPSULE (50,000 UNITS TOTAL) BY MOUTH ONCE WEEKLY active Not Available Not Available No t Available methylpred nisolone 4 mg tablets in a dose pack TAKE 6 TABLETS ON DAY 1 DIRECTED ON PACKAGE AND DECREASE BY 1 TAB EACH DAY FOR A TOTAL OF 6 DAYS 02/13 completed Not Available Not Available Not Available albuterol sulfate HFA 90 mcg/actuat ion aerosol inhaler Inhale 2 puffs every 4 hours by inhalati on route as needed. active Not Available Not Available No t Available pioglitazo ne 30 mg tablet TAKE 1 TABLET BY MOUTH EVERY DAY active Not Available Not Available No t Available nifedipine ER 60 mg tablet,ext ended release TAKE 1 TABLET BY MOUTH EVERY DAY 11/14 completed Not Available Not Available Not Available lisinopril 40 mg tablet TAKE 1 TABLET BY MOUTH EVERY DAY IN THE MORNING active Not Available Not Available No t Available fluticason e propionate 50 mcg/actuat ion nasal spray,susp ension SPRAY 1 SPRAY INTO EACH NOSTRIL DAILY NEEDED FOR 30 DAYS 03/26 completed Not Available Not Available Not Available metformin ER 500 mg tablet,ext ended release 24 hr Take 2 tablets every day by oral route in the morning for 30 days. 11/25 completed Not Available Not Available Not Available doxycyclin e hyclate 100 mg tablet Take 1 tablet twice a day by oral route. 03/14 completed Not Available Not Available Not Available dicyclomin e 10 mg capsule Take 1 capsule 4 times a day by oral route before meals. 03/14 completed Not Available Not Available Not Available atenolol 50 mg tablet TAKE 1 TABLET BY MOUTH EVERY DAY 02/13 completed Not Available Not Available Not Available loratadine 10 mg tablet TAKE 1 TABLET BY MOUTH EVERY DAY NEEDED active Not Available Not Available No t Available glipizide 5 mg tablet Take 1 tablet twice a day by oral route. active Not Available Not Available No t Available amoxicilli n 875 mg-potassi um clavulanat e 125 mg tablet Take 1 tablet every 12 hours by oral route for 7 days. active Not Available Not Available No t Available Laxative (bisacodyl ) 5 mg tablet,del ayed release TAKE ALL 6 TABLETS BY MOUTH 8AM ON 09/08/1910/17 completed Not Available Not Available Not Available azithromyc in 500 mg tablet take four tablets at once 24 hours prior to dental cleaning active Not Available Not Available No t Available ezetimibe 10 mg tablet TAKE 1 TABLET BY MOUTH EVERY DAY 10/19 completed Not Available Not Available Not Available Co Q-10 100 mg capsule Take by oral route. active Not Available Not Available No t Available rosuvastat in 5 mg tablet Take 1 tablet twice a week by oral route. 08/11 completed Not Available Not Available Not Available rosuvastat in 10 mg tablet TAKE 1 TABLET BY MOUTH EVERY DAY active Not Available Not Available No t Available rosuvastat in 20 mg tablet TAKE 1 TABLET (20 MG TOTAL) BY MOUTH EVERY NIGHT. 06/26 completed Not Available Not Available Not Available rosuvastat in 40 mg tablet TAKE 1 TABLET BY MOUTH EVERY DAY 11/14 completed Not Available Not Available Not Available omega-3 acid ethyl esters 1 gram capsule TAKE 1 CAPSULE BY MOUTH TWICE A DAY BEFORE MEALS 06/07 completed takes vasepa now Not Available Not Available Not Available fenofibrat e 160 mg tablet TAKE ONE TABLET BY MOUTH ONCE DAILY AT BEDTIME 01/19 completed Not Available Not Available Not Available chlorthali done 12.5 mg daily 10/02 completed Not Available Not Available Not Available fenofibrat e nanocrysta llized 145 mg tablet Take 1 tablet every day by oral route. 12/27 completed Not Available Not Available Not Available Divigel 0.5 mg/0.5 gram (0.1 %) transderma l gel packet 11/04 completed Not Available Not Available Not Available cholecalci ferol (vitamin D3) 50 mcg (2,000 unit) capsule Take 2 capsules every day by oral route in the morning for 30 days. 10/05 completed Not Available Not Available Not Available GaviLyte-G 236 gram-22.74 gram-6.74 gram-5.86 gram oral solution MIX WITH LIQUID AND TAKE 1/2 BY MOUTH AT 5PM ON 09/07/2022 AND THE OTHER 1/2 AT 5AM ON 09/09/1910/17 completed Not Available Not Available Not Available OneTouch Delica Lancets 33 gauge USE DIRECTED TWICE DAILY 01/02 completed Not Available Not Available Not Available Suprep Bowel Prep Kit 17.5 gram-3.13 gram-1.6 gram oral solution 09/03 completed Not Available Not Available Not Available ropivacain e (PF) 5 mg/mL (0.5 %) injection solution Take 20 mg by injectio n route. 06/20 completed [id number],C [id number], 024 Not Available Not Available Not Available Vascepa 1 gram capsule TAKE 2 CAPSULES BY MOUTH TWICE A DAY active Not Available Not Available No t Available Jardiance 10 mg tablet TAKE 1 TABLET BY MOUTH EVERY MORNING 01/18 completed Not Available Not Available Not Available Jardiance 25 mg tablet TAKE 1 TABLET BY MOUTH EVERY DAY IN THE MORNING 12/19 completed Not Available Not Available Not Available Repatha SureClick 140 mg/mL subcutaneo us pen injector Inject 1 mL every 2 weeks by subcutan eous route in the morning for 30 days. 12/24 completed Not Available Not Available Not Available [employer]Touch Ultra Blue Test Strip USE DIRECTED TWICE A DAY 01/02 completed Not Available Not Available Not Available OneTouch Ultra2 Meter USE DIRECTED active Not Available Not Available No t Available Paxlovid 150 mg-100 mg tablets in a dose pack (Moderate Renal Dose) TAKE 1 DOSE PACK BY MOUTH DIRECTED 10/17 completed Not Available Not Available Not Available Vitals Date Recorded Body height Body mass index (BMI) Body weight Body temperature Heart rate Oxygen saturation Oxygen saturation in Arterial blood by Pulse oximetry Systolic blood pressure Diastolic blood pressure Provider Name and Address Organization Details Last Updated DateTime 5 162.56 cm 27.5 kg/m2 51754.7 8 g 97.2 [degF] 82 /min 98 % 98 % 138 mm[Hg] 60 mm[Hg] Diamond Garza MA [facility] [employer] 5 10:10:47 Date Recorded Body height Body mass index (BMI) Body weight Body temperature Oxygen saturation Oxygen saturation in Arterial blood by Pulse oximetry Heart rate Provider Name and Address Organization Details Last Updated DateTime 5 162.56 cm 27.5 kg/m2 92255.7 8 g 98.2 [degF] 98 % 98 % 90 /min MALOU Howell [facility] [employer] [facility] 5 11:52:51 Date Recorded Heart rate Heart rate Respiratory rate Provider Name and Address Organization Details Last Updated DateTime 08/28/2024 83 /min 83 /min 15 /min Zaheer Montilla MD [address] [place] [address], [id number], [facility] [employer] [facility] 08/28/2024 11:07:34 Date Recorded Body height Body mass index (BMI) Body weight Body temperature Oxygen saturation Oxygen saturation in Arterial blood by Pulse oximetry Systolic blood pressure Diastolic blood pressure Provider Name and Address Organization Details Last Updated DateTime 5 162.56 cm 27.3 kg/m2 15061.1 9 g 99.1 [degF] 97 % 97 % 110 mm[Hg] 64 mm[Hg] Flor Howard MA [facility] [employer] [facility] 5 10:27:07 Date Recorded Body height Body mass index (BMI) Body weight Body temperature Heart rate Oxygen saturation Oxygen saturation in Arterial blood by Pulse oximetry Systolic blood pressure Diastolic blood pressure Provider Name and Address Organization Details Last Updated DateTime 5 162.56 cm 27.1 kg/m2 22363.5 9 g 97.1 [degF] 67 /min 97 % 97 % 112 mm[Hg] 62 mm[Hg] Diamond Garza MA [facility] [employer] [facility] 5 16:31:41 Date Recorded Body height Body mass index (BMI) Body weight Body temperature Heart rate Oxygen saturation Oxygen saturation in Arterial blood by Pulse oximetry Systolic blood pressure Diastolic blood pressure Provider Name and Address Organization Details Last Updated DateTime 4 162.56 cm 28.3 kg/m2 17844.7 4 g 96 [degF] 94 /min 96 % 96 % 130 mm[Hg] 64 mm[Hg] Diamond Garza MA [facility] [employer] [facility] 4 10:12:45 Social History Question Answer Notes LastModified by Organization Details LastModified Time Tobacco Smoking Status Never Smoker Not Available [facility] 07/05/2022 02:34:34 Do You Have An Advance Directive? No MIGRATION.030 [id number] Information not available 07/05/2022 Are You Blind Or Do You Have Difficulty Seeing? No Information not available 01/11/2023 What Is Your Level Of Caffeine Consumption? Moderate MIGRATION.030 [id number] Information not available 07/05/2022 How Much Tobacco Do You Chew? None MIGRATION.030 809001 Information not available 07/05/2022 What Is Your Code Status? Full Code Pt Wants Them To Do Whatever Can Be Done To Save Her Life . Information not available 01/11/2023 In The 14 Days Before Symptom Onset, Have You Had Close Contact With A Laboratory-confi rmed COVID-19 While That Case Was Ill? No MIGRATION.030 050935 Information not available 07/05/2022 In The 14 Days Before Symptom Onset, Have You Had Close Contact With A Person Who Is Under Investigation For COVID-19 While That Person Was Ill? No MIGRATION.030 [id number] Information not available 07/05/2022 Are You Deaf Or Do You Have Serious Difficulty Hearing? No Information not available 01/11/2023 What Type Of Diet Are You Following? REGULAR MIGRATION.0301 195077 Information not available 07/05/2022 Which Illicit Or Recreational Drugs Have You Used? No MIGRATION.0301 644940 Information not available 07/05/2022 Do You Have An Electrostatic Air Filter? No Information not available 08/28/2024 Have There Been Any Changes To Your Family Or Social Situation? No MIGRATION.0301 729080 Information not available 07/05/2022 What Is The Fluoride Status Of Your Home? Unknown MIGRATION.0301 798938 Information not available 07/05/2022 Are There Any Guns Present In Your Home? No MIGRATION.0301 698133 Information not available 07/05/2022 Do You Have A Humidifier? No Information not available 08/28/2024 Do You Use Insect Repellent Routinely? No MIGRATION.0301 [id number] Information not available 07/05/2022 Where Do You Live? [place]House MIGRATION.0301 630801 Information not available 07/05/2022 Do You Have A Medical Power Of Blade Operator? No MIGRATION.0301 [id number] Information not available 07/05/2022 Do You Have Moisture Problems In Your Home? No Information not available 08/28/2024 What Was The Date Of Your Most Recent Tobacco Screening? 10/02/2024 Information not available 10/02/2024 How Many Children Do You Have? 1 Information not available 03/20/2024 Do You Have Any Pets? No MIGRATION.0301 [id number] Information not available 07/05/2022 What Is Your Relationship Status? MIGRATION.0301 944507 Information not available 07/05/2022 Do You Use Your Seat Belt Or Car Seat Routinely? Yes MIGRATION.0301 230323 Information not available 07/05/2022 Do You Have Smoke And Carbon Monoxide Detectors In Your Home? Yes MIGRATION.0301 086342 Information not available 07/05/2022 Are You Passively Exposed To Smoke? No MIGRATION.0301 345681 Information not available 07/05/2022 Are There Any Smokers In Your House? No MIGRATION.0301 069381 Information not available 07/05/2022 How Much Tobacco Do You Smoke? No MIGRATION.0301 334306 Information not available 07/05/2022 What Types Of Sporting Activities Do You Participate In? None MIGRATION.0301 160427 Information not available 07/05/2022 Do You Use Sunscreen Routinely? No MIGRATION.0301 740390 Information not available 07/05/2022 Has Tobacco Cessation Counseling Been Provided? No N/a MIGRATION.0301 763448 Information not available 07/05/2022 How Many Years Have You Smoked Tobacco? 0 MIGRATION.0301 162857 Information not available 07/05/2022 Have You Recently Traveled Abroad? No MIGRATION.0301 316122 Information not available 07/05/2022 Do You Have Difficulty Walking Or Climbing Stairs? No Information not available 01/11/2023 Do You Have Any Dietary Restrictions? No MIGRATION.0301 053931 Information not available 07/05/2022 Sex: Female Functional Status Question Answer Note LastModified by [employer] ion Details LastModified Time Do you or have you ever used smokeless tobacco? Never used smokeless tobacco MIGRATION.53721 85468 Information not available 07/05/2022 Are you currently employed? No [email or web address] Information not available 10/17/2022 Have you been exposed to chemicals or toxins? not aware of Information not available 08/28/2024 Do you have transportation difficulties? No Information not available 01/11/2023 Are you able to care for yourself? Yes Information n ot available 01/11/2023 Do you have difficulty dressing or bathing? No Information not available 01/11/2023 Do you or have you ever used e-cigarettes or vape? Never used electronic cigarettes MIGRATION.15807 55001 Information not available 07/05/2022 What is your exercise level? None MIGRATION.99393 52859 Information not available 07/05/2022 Do you use any illicit or recreational drugs? No MIGRATION.24619 96300 Information not available 07/05/2022 Do you or have you ever used any other forms of tobacco or nicotine? No MIGRATION.69648 23117 Information not available 07/05/2022 What is your level of alcohol consumption? None MIGRATION.46858 34244 Information not available 07/05/2022 Are you able to walk? YESWOREST Information not available 01/11/2023 Do you have difficulty doing errands alone? 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 [id number] Information not available 01/11/2023 Do you have difficulty concentrating, remembering or making decisions? No Information no t available 01/11/2023 Family History Relationship Description Onset Age of this Age Resolved Age Notes LastModified by Organization Details LastModified Time Father Heart disease MIGRATION.732 [id number] Not available 07/05/2022 02:40:18 Mother Pulmonary emphysema MIGRATION.527 [id number] Not available 07/05/2022 02:40:18 Mother Kidney disease MIGRATION.117 [id number] Not available 07/05/2022 02:40:18 Sister Malignant tumor of pancreas 65 MIGRATION.451 0100769 Not available 07/05/2022 02:40:18 Maternal Grandmother Diabetes mellitus MIGRATION.179 [id number] Not available 07/05/2022 02:40:18 Maternal Uncle Diabetes mellitus MIGRATION.805 [id number] Not available 07/05/2022 02:40:18 Medical History Condition Response NERVE DISEASE N BLINDNESS N RHEUMATIC FEVER N KIDNEY STONES N BLADDER PROBLEMS N MRSA N OTHER # 1 N POLIO N LUNG DISEASE/DISORDER N HISTORY OF DRUG ABUSE N RADIATION / CHEMOTHERAPY N COPD N Other # 2 N BLOOD DISEASES N EAR OR HEARING PROBLEMS N MUMPS N SHINGLES N DEPRESSION (INCLUDING POST ) Y BOWEL PROBLEMS Y STROKE/TIA N ULCERS N BENIGN PROSTATIC HYPERPLASIA N MEASLES N HYPOTENSION N MYOCARDIAL INFARCTION N OBESITY N GERD/NAUSEA N ANEURYSM N URINARY/BLADDER/KIDNEY PROBLEMS N CORONARY ARTERY DISEASE (CAD) N ADDICTION CONCERNS N Impotence N ENDOMETRIOSIS N USE OF BLOOD THINNERS N SKIN PROBLEMS N GASTROINTESTINAL DISORDER N PERIPHERAL VASCULAR DISEASE N MUSCLE,JOINT OR BONE PROBLEMS N GASTROINTESTINAL BLEEDING N BLOOD CLOTS N ASTHMA N CATARACTS N ERECTILE DYSFUNCTION N VARICOSITIES N GI PROBLEMS N Low Testosterone N INFERTILITY N AIDS/HIV N CHEMOTHERAPY / RADIATION N LIVER DISEASE N MALE HYPOGONADISM N HYPERTENSION Y Deficiency Y TOURETTE'S N ANXIETY DISORDER Y BLOOD TRANSFUSION N ANEMIA/BLOOD DISORDER N CHRONIC EAR INFECTIONS N BRONCHITIS N TUBERCULOSIS N GLAUCOMA N FOOT PROBLEM N DIVERTICULITIS N SLEEP APNEA Y CHICKENPOX N INFECTIOUS DISEASE N PROSTATE N HEART ARRHYTHMIA N INSOMNIA N HIGH CHOLESTEROL / HYPERLIPIDEMIA Y EYE PROBLEMS N HYPERTHYROIDISM N EDEMA N CHRONIC PAIN SYNDROME N HYPOTHYROIDISM Y CAROTID BLOCKAGE N CONSTIPATION N BACK / NECK PROBLEMS N HAVE YOU BEEN HOSPITALIZED OR SEEN IN [facility] IN THE PAST YEAR ? N ATHEROSCLEROSIS N BREAST PROBLEMS N DIALYSIS N ECZEMA N OSTEOPOROSIS N ARTHRITIS N APPENDICITIS N DIABETES, TYPE Y BAD TEETH N ENT N HEARTBURN / REFLUX N AUTISM SPECTRUM DISORDER (ASD) N HEPATITIS / LIVER DISEASE N GOUT N SLEEP DISORDER N ALZHEIMER'S DISEASE N Brain Problems N DEMENTIA N HERPES N SEIZURES/EPILEPSY Y HEADACHES/MIGRAINES N VASCULAR DISEASE N PACEMAKER N Blood Disorder N DIZZINESS N HEART DISEASE/HEART PROBLEMS N KIDNEY DISEASE Y MULTIPLE SCLEROSIS N CANCER: SPECIFY N CARDIAC ARRHYTHMIA N ATRIAL FIBRILLATION N Gall Stones N PULMONARY EMBOLISM N AUTOIMMUNE DISEASE N Gynecological History Statement/Question Response How many live births 1 Date of Last Colonoscopy 03/18/2014 Date of Last Mammogram Most Recent Bone Density Date of LMP Date of Last Pap Hysterectomy? Y Current Control Method Hysterectom y Breast Problems no Obstetrics History GPAL:G 2 P 1 0 1 1 Type Value Multiple Births 0 Full Term 1 Induced 0 Spontaneous 1 Premature 0 Living 1 Ectopics 0 Total 2 Immunizations Vaccine Type Date Status Note Provider Nam e and Address Organization Details Recorded Time SARS-COV-2 (COVID-19) vaccine, UNSPECIFIED 1 completed LIS Ray DE [employer] [facility] [employer] [facility] 11/07/2023 13:58:41 SARS-COV-2 (COVID-19) vaccine, UNSPECIFIED 1 completed LIS Ray, [employer] [facility] [employer] [facility] 11/07/2023 13:58:41 Influenza, split virus, quadrivalent, preservative 0 completed LIS Ray, [employer] [facility] [employer] [facility] 11/07/2023 13:58:41 Influenza, split virus, quadrivalent, PF 2 completed Not Available [facility] 05/17/2023 07:00:51 Influenza, split virus, quadrivalent, PF 6 completed Not Available [facility] 05/17/2023 07:00:51 Influenza, split virus, quadrivalent, PF 7 completed Not Available [facility] 05/17/2023 07:00:51 Influenza, split virus, quadrivalent, PF 8 completed Not Available [facility] 05/17/2023 07:00:51 Influenza, split virus, trivalent, preservative 4 completed Pankaj Martínez LPN null, [facility] 11/07/2023 13:58:41 Tdap 4 completed Federica Jim RMA null, [facility] 05/24/2023 17:01:17 COVID-19, mRNA, LNP-S, PF, 30 mcg/0.3 mL dose 1 completed Pankaj Martínez LPN null, [facility] [employer] [facility] 11/07/2023 13:58:41 COVID-19, mRNA, LNP-S, PF, 30 mcg/0.3 mL dose 1 completed Pankaj Martínez [employer] null, [facility] [employer] [facility] 11/07/2023 13:58:41 Influenza, split virus, quadrivalent, PF 0 completed Pankaj Martínez LPN null, [facility] 11/07/2023 13:58:41 Influenza, high-dose, quadrivalent, PF 3 completed Sabine Holt MD [address] [facility], [place], [address], [facility] [employer] [facility] 02/13/2023 17:54:37 Past Encounters Encounter ID Performer Location Encounter Start Date Encounter Closed Date Diagnosis/Indication Diagnosis SNOMED-CT Code Diagnosis ICD10 Code Diagnosis Note [id number] Sabine modi MD [facility] Internal Med [address] [place] [address] 07/29/2020 00:00:00 07/29/2020 12:18:07 [id number] S_Histor ic_Gateway _ATHENA_M IGRATION_ DEFAULT_1 _1 , 07/29/2020 00:00:00 07/29/2020 17:33:26 [id number] Sabine modi MD [facility] Internal Med [facility] [place] [address] [place] [address] Ave[address] [address] 09/09/2020 00:00:00 09/09/2020 16:38:17 [id number] MD ALEX Swartz IGRATION_ DEFAULT_1 _1 , 09/16/2020 00:00:00 09/16/2020 15:01:21 [id number] Joel Munroe MD [facility] [place] [address] [place] [address] 10/07/2020 00:00:00 10/07/2020 14:59:33 [id number] Sabine modi MD [facility] Internal Med [facility] [place] [address] [place], [place] [address]e., [address] [address] 01/18/2021 00:00:00 01/19/2021 10:00:09 [id number] A[facility] Podiat[facility] [place] [address] [place] [address] 02/14/2021 00:00:00 02/15/2021 14:00:15 [id number] MD ALEX Swartz IGRATION_ DEFAULT_1 _1 , 03/17/2021 00:00:00 03/17/2021 10:01:24 [id number] Sabine modi MD [facility] Internal Med [facility] [place] [address] [place], [place] [address]e., [address] [address] 07/19/2021 00:00:00 07/19/2021 10:30:30 [id number] [facility] ic[facility] Pulmonolo gy [place] [address] [place] [address] 07/25/2021 00:00:00 07/25/2021 13:10:48 [id number] Sabine modi MD [facility] Med [place] [address] [facility] [address] [place] [address] 10/25/2021 00:00:00 10/25/2021 15:19:46 [id number] Beulah Meehan MD _DAMILAURA_Anupama IGRATION_ DEFAULT_1 _1 , 11/10/2021 00:00:00 11/10/2021 12:02:38 [id number] S_Histor ic_Gateway [facility] Pod[facility] [place] [address] [place] [address] 12/12/2021 00:00:00 12/12/2021 13:32:57 [id number] Joel Munroe MD [facility] [place] [address] [place] [address] 01/02/2022 00:00:00 01/02/2022 10:46:05 [id number] Joel Munroe MD [facility] [place] [address] [place] [address] 01/30/2022 00:00:00 01/30/2022 10:45:35 [id number] Sabine modi MD [facility] Internal Med [facility] [address] [facility] [address] [place] [address] 02/28/2022 00:00:00 02/28/2022 11:52:45 [id number] Beulah Meehan MD [facility] [place] [address] [place] [address] 07/11/2022 10:29:49 07/11/2022 11:22:46 Hypothyroidism 70506604 E03.9 FT4 in ideal range- synthroid is too costly for patient- will transition off synthroid to unithroid 100 mcg daily. She was reminded to take her unithroid on empty stomach with glass of water and wait one hour to eat or have her coffee in morning and up to 4 hours if ever taking any heartburn or reflux medication s to help optimize absorption . Discussed paleo like diet with restrictio n of GMOs to help with energy and to optimize absorption of vitamins and minerals and reduce inflammati on. Well contr olled type 2 diabetes mellitus [id number] E11.9 A1C of 6.2% in ideal range- patient tolerating actos well without swelling or hypoglycem ia. She is following nephrology for CKD and renal function stable overall. Dyslipidemia [id number] E 78.5 LDL in range on rosuvastat in. TG levels marginally elevated - encouraged continued work on low carb diet under 120 grams per day and continue glucose control. She is on vascepa and tolerating well. Spent up to 28 minutes preparing to see the patient (eg, review of tests), obtaining and/or reviewing separately obtained history, performing a medically appropriat e examinatio n and evaluation , counseling and educating the patient, ordering medication s, tests, along with documentin g clinical informatio n in the electronic health record, independen tly interpreti ng results and communicat ing results to the patient. RTC in 6 months. Patient was provided a handwritte n lab order which contains our fax number. If she chooses to go outside of the [facility] system to obtain labwork she was advised to provide our fax number and my informatio n to the lab she will be obtaining labwork from in order to have her labs properly forwarded over for me to review so there is no loss of follow up due to use of outside network. She was also advised to contact our clinic informing us that she has completed her labwork so we are aware we will need to reach out to the appropriat e laboratory to request her results be forwarded to us so I might have the ability to review and make further medical decision making in her case. She voiced understand ing. [id number] Parisa Rod, [facility] Pulmonolo gy [place] [address] [place] [address] 07/31/2022 16:02:49 08/01/2022 09:01:30 Obstructive sleep apnea syndrome 61669306 G47.33 I do not have old study.She was increased several years ago from 12 to 14cm A5LCewxahl was set up 12/14/2016 She remains on this setting today.I can not get a download past 11/2021 todayEncou raged 100% compliance with all sleepFollo w with PCM for labsAdvise d good sleep habits and patterns:- Set a goal for at least 7 to 8 hours of sleep time per day.-Use the bed mainly for sleep and to go to bed only when tired.If unable to fall asleep after 30 minutes, she should get out of bed but should not engage in any activity that requires sustained mental alertness. -Maintain a regular bedtime and wake-up time even on weekends-A void excessive naps during the daytime. If a nap is necessary, limit it to no more than 30 minutes.-M inimize environmen evie noise, bright lights, and extremes in bedroom temperatur e.-Avoid alcohol, caffeinate d beverages, and nicotine products for at least 6 hours prior to bedtime.-A void strenuous exercise and large meals for at least 4 hours prior to bedtime. e is aware of reportable signs and symptomsOr tierra for new CPAP todayWill adjust pressures as neededRTC for compliance visit as required by insurance [id number] Parisa Rod, [facility] Pulmonolo gy [place] [address] [place] [address] 10/09/2022 12:55:43 10/09/2022 13:10:46 Obstructive sleep apnea syndrome 15563834 G47.33 I do not have old study.She was set up with new machine 09/04/22Do wnload today on 4-20cm with 70%Her median pressure is 7.8Max pressure 14.1Her AHI is 8.1I will change her pressures today - already done in [employer] uraged 100% compliance with all sleepFollo w with PCM for labsAdvise d good sleep habits and patterns:- Set a goal for at least 7 to 8 hours of sleep time per day.-Use the bed mainly for sleep and to go to bed only when tired.If unable to fall asleep after 30 minutes, she should get out of bed but should not engage in any activity that requires sustained mental alertness. -Maintain a regular bedtime and wake-up time even on weekends-A void excessive naps during the daytime. If a nap is necessary, limit it to no more than 30 minutes.-M inimize environmen evie noise, bright lights, and extremes in bedroom temperatur e.-Avoid alcohol, caffeinate d beverages, and nicotine products for at least 6 hours prior to bedtime.-A void strenuous exercise and large meals for at least 4 hours prior to bedtime.Sh e is aware of reportable signs and symptomsRT C in 6-8 weeks, PRN for concerns Fatigue 09666532 R53.83 Multifacto ralPAP changes as above [id number] Sabine modi MD [facility] Internal Med [place] [address] [facility] [place] [address] 10/17/2022 10:20:01 10/17/2022 11:10:18 Screening - NAD [id number] Z13.9 C-scope: 04/18/17 Dr Saniya seals in 5 years04/10: C-scope: Dr Saniya winston Mammogram: 04/03/16, negative, get anotherMam mogram: 05/16/18: NegMammogr am: 01/24/2021 : NegMammogr am ordered 10/17/2022 DEXA: 01/24/2021 : WNL, ordered 10/17/2022 PAP: Did see Dr Bates 07/29/2020 , on PRN fluconozol e given by Dr Valdez Get yearly flu shotCan get Tdap, declinesUT D on COVID 19 vaccine RTC in 4 monthsDo labsER if any symptoms worsenshe did verbalize her understand ing of the above. Type 2 karen betes mellitus without complication 841079520 E11.[address] Zoran seals 11/10/2021 On pioglitazo ne 15mg daily, dose reduced by Dr Meza 07/12/2021 On jardiance 25mg daily A1C and urine alb ordered by Dr Gallagher to see the eye MD Dr Ennis 12/12/2021 Heart murmur [id number] R0 1.1 CTA Aorto iliofemora l: No significan t arterial stenosis, hepatic steatosis, DJD in L spineStres s test 08/03/2020 : neg US ECHO: 08/03/2020 : EF 60%, normal LVFx, mild MRUS renal artery: 08/03/[address] Bedolla SL last OV 10/24/2021 , f/u yearly Liver enzy mes level above reference range 230708355 R74.01 S/p US liver: 07/27/2020 : Fatty liver Is to see Glenna Mercado [employer]URAL ENGINEER for hepatology Hyperlipidemia 95465385 E78.5 On vascepa 1gm 2 cap bidOn zetia 10mg daily, d/c this Start back on the crestor but 20mg daily, she feels that the cramps were from her LBP and now Dr Meza has started her on gabapentin Get labs OV 10/25/2021 :On rosuvastat in 40mg dailyOn vascepaMor e diet and exerciseGe t labs OV 02/28/2022 :On rosuvastat in 40mg dailyOn vascepaDie t and exerciseGe t labs OV 10/17/2022 :On rosuvastat in 40mg dailyOn vascepa, more diet and exercise Essential hypertension 87162494 I10 On atenolol 50mg daily, will decrease to 1/2 tablet daily 10/17/2022 as she has felt her BP is low, she will d/w Dr Meza alsoNot on nifedipine ER 30mg daily, filled by Dr Meza 02/13/2022 On lisinopril 40mg daily, increased by Dr Meehan on 06/24/2020 On chlorthali done 25mg daily Get labs Hypothyroidism 59451149 E03.9 On synthroid 100mcgs dailyTSH, FT4 is ordered by Dr Meehan Moderate r ecurrent major depression 84726415 F33.1 On paroxitine 30mg dailyNot suicidal or homicidalD eclines any referrals to psychiatry Chronic ki dney disease 840679649 N18.9 On vit D weekly Dr Cuevasep apt with Dr Meza Dementia 05990818 F03.90 Does wellMRI brain 01/24/2021 : Unremarkab le Obstructiv e sleep apnea syndrome 98964579 G47.33 She does use her CPAP and is again advised to see pulmonary Parisa Olson SENIOR STRUCTURAL ENGINEER 07/25/2021 Allergic rhinitis 033543 04 J30.9 On flonaseOn loratidine Does well Pain of bi lateral hip joints 5815601854 2162944 M25.[address] Munroe 01/30/2022 S/p steroids Screening mammography 24 415124 Z12.31 Screening for osteoporosis 812189099 Z13.820 [id number] Parisa Rod, EMISSIONS TESTING AND REPAIR TECHNICIAN-[facility] Pulmonolo gy [place] [address] [place] [address] 12/04/2022 10:29:31 12/04/2022 11:11:34 Obstructive sleep apnea syndrome 85609286 G47.33 I do not have old study.She was set up with new machine 09/04/22Do wnload today on 7-20cm with 70%Her median pressure is 10.2Max pressure 15.7Her AHI is 7.0I will change her pressures today to 9-20cm H2O - already done in [facility] uraged 100% compliance with all sleepFollo w with PCM for labsAdvise d good sleep habits and patterns:- Set a goal for at least 7 to 8 hours of sleep time per day.-Use the bed mainly for sleep and to go to bed only when tired.If unable to fall asleep after 30 minutes, she should get out of bed but should not engage in any activity that requires sustained mental alertness. -Maintain a regular bedtime and wake-up time even on weekends-A void excessive naps during the daytime. If a nap is necessary, limit it to no more than 30 minutes.-M inimize environmen evie noise, bright lights, and extremes in bedroom temperatur e.-Avoid alcohol, caffeinate d beverages, and nicotine products for at least 6 hours prior to bedtime.-A void strenuous exercise and large meals for at least 4 hours prior to bedtime.Sh e is aware of reportable signs and symptomsRT C in 6-8 weeks, PRN for concerns Fatigue 51247803 R53.83 Multifacto ral, slightly improvedPA P changes as above [id number] Sabine modi MD [facility] Internal Med [place] [address] [facility], [address] [place] [address] 12/19/2022 15:49:43 12/19/2022 16:48:24 Low back pain 770863846 M54.50 Get on MDP and flexerill as neededGet XraysMay need to see IPC, states in the past was given 'shots' in the back Abdominal discomfort [address] a/pMay need to see GI [id number] Beulah Meehan MD [facility] Endo [place] [address] [place] [address] 01/11/2023 10:12:16 01/11/2023 11:12:42 Well controlled type 2 diabetes mellitus 902878077 E11.9 A1C of 6.4% up from 6.2% in ideal range- Discussed carb counting and how to read food labels. Recommende d patient to utilize the diabetesfo [employer] from the ADA website to help with food preparatio n as this presents ideal carb content per meal so this will make carb counting much easier for patient. Recommende d she incorporat e natural insulin account retention representative s such as pears, apples, cinnamon, anuradha and sweet potatoes to help mobilize her endogenous insulin. Recommende d up to 150 minutes of moderate level activity/e xercise weekly. She cannot take jardiance due to yeast infections and she cannot take actos. She is following nephrology for CKD and renal function stable overall. Hypothyroidism 65736425 E03.9 FT4 in ideal range-cont inue on unithroid 100 mcg daily. She was reminded to take her unithroid on empty stomach with glass of water and wait one hour to eat or have her coffee in morning and up to 4 hours if ever taking any heartburn or reflux medication s to help optimize absorption . Discussed paleo like diet with restrictio n of GMOs to help with energy and to optimize absorption of vitamins and minerals and reduce inflammati on. Dyslipidemia 698431554 E 78.5 LDL in range on rosuvastat in. TG levels marginally elevated - encouraged continued work on low carb diet under 120 grams per day and continue glucose control. She is on vascepa and tolerating well. Spent up to 25 minutes preparing to see the patient (eg, review of tests), obtaining and/or reviewing separately obtained history, performing a medically appropriat e examinatio n and evaluation , counseling and educating the patient, ordering medication s, tests, along with documentin g clinical informatio n in the electronic health record, independen tly interpreti ng results and communicat ing results to the patient. Patient can be followed by PCP - she/he is aware of my resignatio n and last day of February 16. If needed his/her PCP can refer patient to another endocrinol ogist in the area. All questions /concerns answered and refills necessary at visit today. 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-[facility]_G Pulmonolo gy Brenda [place]aux [address] [place] [address] 01/23/2023 10:21:19 01/23/2023 11:07:51 Obstructive sleep apnea syndrome 19186032 G47.33 I do not have old study.She was set up with new machine 09/04/22Do wnload today on 9-20cm with 87% use greater than 4 hoursHer median pressure is 10.5Max pressure 15.7Her AHI is improved at 5.8Encoura ged 100% compliance with all sleepFollo w with PCM for labsAdvise d good sleep habits and patterns:- Set a goal for at least 7 to 8 hours of sleep time per day.-Use the bed mainly for sleep and to go to bed only when tired.If unable to fall asleep after 30 minutes, she should get out of bed but should not engage in any activity that requires sustained mental alertness. -Maintain a regular bedtime and wake-up time even on weekends-A void excessive naps during the daytime. If a nap is necessary, limit it to no more than 30 minutes.-M inimize environmen evie noise, bright lights, and extremes in bedroom temperatur e.-Avoid alcohol, caffeinate d beverages, and nicotine products for at least 6 hours prior to bedtime.-A void strenuous exercise and large meals for at least 4 hours prior to bedtime.Sh e is aware of reportable signs and symptomsRT C in 2 months, PRN for concerns Fatigue 33068250 R53.83 Multifacto ral, improvedCo ntinue PAP Eruption 273049684 R21 Improved, sees PCM [id number] Sabine modi MD [facility] Internal Med [place] [address] [facility] [address] [place] [address] 02/13/2023 10:12:22 02/13/2023 11:11:46 Screening - NAD 859590889 Z13.9 C-scope: 04/18/17 Dr Saniya winston next in 5 years04/10: C-scope: Dr Saniya winston Mammogram: 04/03/16, negative, get anotherMam mogram: 05/16/18: NegMammogr am: 01/24/2021 : NegMammogr am: 10/23/2022 : Neg DEXA: 01/24/2021 : WNL, ordered 10/17/2022 PAP: Did see Dr Bates 07/29/2020 , on PRN fluconozol e given by Dr Valdez Get yearly flu shotCan get Tdap, declinesUT D on COVID 19 vaccine RTC in 4 monthsDo labsER if any symptoms worsenshe did verbalize her understand ing of the above. Type 2 karen betes mellitus without complication 172119174 E11.[address] Zoran seals 11/10/2021 On pioglitazo ne 15mg daily, dose reduced by Dr Meza 07/12/2021 On jardiance 25mg daily A1C and urine alb ordered by Dr Gallagher to see the eye MD Dr Ennis 12/12/2021 Heart murmur 89387426 R0 1.1 CTA Aorto iliofemora l: No significan t arterial stenosis, hepatic steatosis, DJD in L spineStres s test 08/03/2020 : neg US ECHO: 08/03/2020 : EF 60%, normal LVFx, mild MRUS renal artery: 08/03/[address] Bedolla [facility] last OV 10/24/2021 , f/u yearly Liver enzy mes level above reference range 620721555 R74.01 S/p US liver: 07/27/2020 : Fatty liver Is to see Glenna Mercado SENIOR STRUCTURAL ENGINEER for hepatology Hyperlipidemia 56812800 E78.5 On vascepa 1gm 2 cap bidOn zetia 10mg daily, d/c this Start back on the crestor but 20mg daily, she feels that the cramps were from her LBP and now Dr Meza has started her on gabapentin Get labs OV 10/25/2021 :On rosuvastat in 40mg dailyOn vascepaMor e diet and exerciseGe t labs OV 02/28/2022 :On rosuvastat in 40mg dailyOn vascepaDie t and exerciseGe t labs OV 10/17/2022 :On rosuvastat in 40mg dailyOn vascepa, more diet and exercise OV 02/13/2023 :On rosuvastat in 40mg dailyOn vascepaGet labs Essential hypertension 41314213 I10 On atenolol 50mg daily, will decrease to 1/2 tablet daily 10/17/2022 as she has felt her BP is low, she will d/w Dr Meza alsoNot on nifedipine ER 30mg daily, filled by Dr Meza 02/13/2022 On lisinopril 40mg daily, increased by Dr Meehan on 06/24/2020 On chlorthali done 25mg daily Get labs Hypothyroidism 80157558 E03.9 On synthroid 100mcgs dailyTSH, FT4 is ordered by Dr Meehan Moderate r ecurrent major depression 25523719 F33.1 On paroxitine 30mg dailyNot suicidal or homicidalD eclines any referrals to psychiatry Chronic ki dney disease 294621642 N18.9 On vit D weekly Dr MezaKeep apt with Dr Meza Dementia 19998488 F03.90 Does wellMRI brain 01/24/2021 : Unremarkab le Obstructiv e sleep apnea syndrome 99094033 G47.33 She does use her CPAP and is again advised to see pulmonary Parisa Olson SENIOR STRUCTURAL ENGINEER 07/25/2021 Allergic rhinitis 387771 04 J30.9 On flonaseOn loratidine Does well Pain of bi lateral hip joints 9060980455 9197674 M25.[address] Munroe 01/30/2022 S/p steroids Screening for osteoporosis 694672767 Z13.820 Adult [facility] th examination 084436355 Z00.00 Depression screening 171 824668 Z13.31 Administra tion of influenza vaccine 88513760 Z23 [id number] Parisa Rod, [facility] Pulmonolo gy Brenda Breaux [address] [place] [address] 03/26/2023 10:50:30 03/27/2023 09:05:42 Obstructive sleep apnea syndrome 95383275 G47.33 I do not have old study.She was set up with new machine 09/04/22Do wnload today on 9-20cm with 87% use greater than 4 hoursHer median pressure is 10.5Max pressure 15.7Her AHI is improved at 5.8Encoura ged 100% compliance with all sleepFollo w with PCM for labsAdvise d good sleep habits and patterns:- Set a goal for at least 7 to 8 hours of sleep time per day.-Use the bed mainly for sleep and to go to bed only when tired.If unable to fall asleep after 30 minutes, she should get out of bed but should not engage in any activity that requires sustained mental alertness. -Maintain a regular bedtime and wake-up time even on weekends-A void excessive naps during the daytime. If a nap is necessary, limit it to no more than 30 minutes.-M inimize environmen evie noise, bright lights, and extremes in bedroom temperatur e.-Avoid alcohol, caffeinate d beverages, and nicotine products for at least 6 hours prior to bedtime.-A void strenuous exercise and large meals for at least 4 hours prior to bedtime. e is aware of reportable signs and symptomsOr tierra for mask replacemen t todayShe should follow up in 6 months [id number] Sabine modi MD [facility] Internal Med [facility] [address] [facility], [address] [address] 07/17/2023 10:23:52 07/17/2023 11:32:21 Screening - NAD 641614253 Z13.9 C-scope: 04/18/17 Dr Saniya winston next in 5 years04/10: C-scope: Dr Saniya winston Mammogram: 04/03/16, negative, get anotherMam mogram: 05/16/18: NegMammogr am: 01/24/2021 : NegMammogr am: 10/23/2022 : Neg DEXA: 01/24/2021 : WNL, ordered 10/17/2022 DEXA: 03/15/2023 : Normal PAP: Did see Dr Bates 07/29/2020 , on PRN fluconozol e given by Dr Valdez Get yearly flu shotCan get Tdap, declinesUT D on COVID 19 vaccineCan do RSV vaccine RTC in 4 monthsDo labsER if any symptoms worsenshe did verbalize her understand ing of the above. Type 2 karen betes mellitus without complication 297212635 E11.[address] Meehan next 11/10/2021 On pioglitazo ne 15mg daily, dose reduced by Dr Meza 07/12/2021 Not on jardiance 25mg daily A1C and urine alb ordered by Dr Guillermoeds to see the eye MD Dr Ennis 12/12/2021 Heart murmur 33499800 R0 1.1 CTA Aorto iliofemora l: No significan t arterial stenosis, hepatic steatosis, DJD in L spineStres s test 08/03/2020 : neg US ECHO: 08/03/2020 : EF 60%, normal LVFx, mild MRUS renal artery: 08/03/[address] Bedolla [facility] last OV 10/24/2021 , f/u yearly Liver enzy mes level above reference range 455387759 R74.01 S/p US liver: 07/27/2020 : Fatty liver Is to see Glenna Mercado SENIOR STRUCTURAL ENGINEER for hepatology Hyperlipidemia 67397953 E78.5 On zetia 10mg daily, d/fely this On rosuvastat in 40mg dailyOn vascepaGet labs Essential hypertension 73752536 I10 Not on atenolol 50mg daily, now on 25mg dailyNot on nifedipine ER 30mg daily, filled by Dr Meza 02/13/2022 On lisinopril 40mg daily, increased by Dr Meehan on 06/24/2020 Not on chlorthali done 25mg daily Get labs Hypothyroidism 70337199 E03.9 On synthroid 100mcgs dailyTSH, FT4 is ordered by Dr Meehan Moderate r ecurrent major depression 61106257 F33.1 On paroxitine 30mg dailyNot suicidal or homicidalD eclines any referrals to psychiatry Chronic ki dney disease 867747396 N18.9 On vit D weekly Dr Pérez apt with Dr Meza Dementia 08397136 F03.90 Does wellMRI brain 01/24/2021 : Unremarkab le Obstructiv e sleep apnea syndrome 38930409 G47.33 She does use her CPAP and is again advised to see pulmonary Parisa Olson SENIOR STRUCTURAL ENGINEER 07/25/2021 Allergic rhinitis 180696 04 J30.9 On flonaseOn loratidine Does well Pain of bi lateral hip joints 8084902952 1640725 M25.[address] Munroe 01/30/2022 S/p steroids Screening mammography 24 281297 Z12.31 Thrombocyt openic disorder 281002353 D69.6 Will repeat the labs, if still low, will need to see hematology Serum farzad min B12 below reference range 282926228 R79.89 [id number] Maria Del Carmen Guidry DPM [facility] Podiatry [place] [address] [place], [place] [address] 07/24/2023 10:39:13 07/24/2023 13:12:32 Foot callus 686967616 L84 Pain in right foot 45576 91010 99273 M79.671 Pain in left foot 014613 7276 46710 M79.318 [id number] Zaheer Montilla MD [facility] Pulmonolo gy [place] [address] 08/29/2023 09:31:39 08/30/2023 09:24:59 Obstructive sleep apnea syndrome 37648382 G47.33 [id number] Sabine modi MD [facility] Internal Med [address] [place] [address] 10/29/2023 10:22:56 10/29/2023 11:45:42 Cramping pain 122100585 R52 Get labsOn magnesiumM ay need to decrease her statin [id number] Sabine modi MD [facility] Internal Med [facility] [place] [address] [place] [address] 11/15/2023 09:54:07 11/15/2023 10:43:35 Cramping pain 401888971 R52 Get labsOn magnesiumM ay need to decrease her statin OV 11/15/2023 : Does well now Screening - NAD 14467505 3 Z13.9 C-scope: 04/18/17 Dr Fredrickso n next in 5 years04/10: C-scope: Dr Saniya winston Mammogram: 04/03/16, negative, get anotherMam mogram: 05/16/18: NegMammogr am: 01/24/2021 : NegMammogr am: 10/23/2022 : Neg DEXA: 01/24/2021 : WNL, ordered 10/17/2022 DEXA: 03/15/2023 : Normal PAP: Did see Dr Bates 07/29/2020 , on PRN fluconozol e given by Dr Valdez Get yearly flu shotCan get Tdap, declinesUT D on COVID 19 vaccineCan do RSV vaccineGet shingrix vaccineCan do PCV #20 RTC in 4 monthsDo labsER if any symptoms worsenshe did verbalize her understand ing of the above. Type 2 karen betes mellitus without complication 189844779 E11.[address] Meehan Not on pioglitazo ne 15mg daily, dose reduced by Dr Meza 07/12/2021 Not on jardiance 25mg daily Needs to see the eye MD Dr Ennis 12/12/2021 Heart murmur 20299512 R0 1.1 CTA Aorto iliofemora l: No significan t arterial stenosis, hepatic steatosis, DJD in L spineStres s test 08/03/2020 : neg US ECHO: 08/03/2020 : EF 60%, normal LVFx, mild MRUS renal artery: 08/03/[address] Bedolla [facility] last OV 10/24/2021 , f/u yearly Liver enzy mes level above reference range 134151555 R74.01 S/p US liver: 07/27/2020 : Fatty liver Is to see Glenna Mercado SENIOR STRUCTURAL ENGINEER for hepatology Hyperlipidemia 50429328 E78.5 On zetia 10mg daily, d/fely this On rosuvastat in 40mg dailyOn vascepaGet labs Essential hypertension 63749896 I10 Not on atenolol 50mg daily, now on 25mg daily On nifedipine ER 30mg dailyOn lisinopril 40mg dailyOn chlorthali done 25mg daily, Dr Meza 10/21/2023 On spironolac tone 25mg daily Get labs Hypothyroidism 01349888 E03.9 On synthroid 100mcgs dailyTSH, FT4 is ordered by Dr Zoran sunshine ecurrent major depression 83622282 F33.1 On paroxitine 30mg dailyNot suicidal or homicidalD eclines any referrals to psychiatry Chronic ki dney disease 077900465 N18.9 On vit D weekly Dr Pérez apt with Dr Meza Dementia 01362702 F03.90 Does wellMRI brain 01/24/2021 : Unremarkab le Obstructiv e sleep apnea syndrome 97891447 G47.33 She does use her CPAP and is again advised to see pulmonary Parisa Olson SENIOR STRUCTURAL ENGINEER 07/25/2021 Allergic rhinitis 009905 04 J30.9 On flonaseOn loratidine Does well Pain of bi lateral hip joints 5184192714 4128733 M25.[address] Munroe 01/30/2022 S/p steroids Screening mammography 24 794919 Z12.31 Thrombocyt openic disorder 345101747 D69.6 PLT WNL 11/12/2023 Serum farzad min B12 below reference range 639722116 R79.89 Anemia 424016749 D64.9 More iron in diet [id number] Sabine modi MD [facility] Internal Med [place] [address] [facility], [facility] [address] [place] [address] 03/20/2024 10:05:14 03/20/2024 11:11:40 Cramping pain 254935424 R52 Get labsOn magnesiumM ay need to decrease her statin OV 11/15/2023 : Does well now Screening - NAD 53005279 3 Z13.9 C-scope: 04/18/17 Dr Saniya winston next in 5 years04/10: C-scope: Dr Saniya winston Mammogram: 04/03/16, negative, get anotherMam mogram: 05/16/18: NegMammogr am: 01/24/2021 : NegMammogr am: 10/23/2022 : Neg DEXA: 01/24/2021 : WNL, ordered 10/17/2022 DEXA: 03/15/2023 : Normal PAP: Did see Dr Bates 07/29/2020 , on PRN fluconozol e given by Dr Valdez Get yearly flu shotCan get Tdap, declinesUT D on COVID 19 vaccineCan do RSV vaccineGet shingrix vaccineCan do PCV #20 RTC in 4 monthsDo labsGABY if any symptoms worsenshe did verbalize her understand ing of the above. Type 2 karen betes mellitus without complication 446321044 E11.[address] Meehan Not on pioglitazo ne 15mg daily, dose reduced by Dr Meza 07/12/2021 Not on jardiance 25mg daily Needs to see the eye MD Dr Ennis 12/12/2021 Heart murmur 17505405 R0 1.1 CTA Aorto iliofemora l: No significan t arterial stenosis, hepatic steatosis, DJD in L spineStres s test 08/03/2020 : neg US ECHO: 08/03/2020 : EF 60%, normal LVFx, mild MRUS renal artery: 08/03/[address] Bedolla [facility] last OV 10/24/2021 , f/u yearly Liver enzy mes level above reference range 166567358 R74.01 S/p US liver: 07/27/2020 : Fatty liver Is to see Glenna Mercado SENIOR STRUCTURAL ENGINEER for hepatology Hyperlipidemia 00456840 E78.5 On zetia 10mg daily, d/fely this On rosuvastat in 20mg dailyOn vascepaGet labs Essential hypertension 34235672 I10 Not on atenolol 50mg daily, now on 25mg daily Not on nifedipine ER 30mg dailyOn lisinopril 40mg dailyOn chlorthali done 25mg daily, Dr Meza 10/21/2023 On spironolac tone 25mg 1/[address] Meza 02/12/2024 Get labs Hypothyroidism 39375822 E03.9 On synthroid 100mcgs dailyTSH, FT4 is ordered by Dr Meehan Moderate r ecurrent major depression 85453584 F33.1 On paroxitine 30mg dailyNot suicidal or homicidalD eclines any referrals to psychiatry Chronic ki dney disease 824326148 N18.9 On vit D weekly Dr Cuevasep apt with Dr Meza Dementia 68223829 F03.90 Does wellMRI brain 01/24/2021 : Unremarkab le Obstructiv e sleep apnea syndrome 18879685 G47.33 She does use her CPAP and is again advised to see pulmonary Parisa Olson SENIOR STRUCTURAL ENGINEER 07/25/2021 Allergic rhinitis 929698 04 J30.9 On flonaseOn loratidine Does well Pain of bi lateral hip joints 4439257359 4906447 M25.[address] Munroe 01/30/2022 S/p steroids Screening mammography 24 311823 Z12.31 Thrombocyt openic disorder 391946592 D69.6 PLT WNL 11/12/2023 Serum farzad min B12 below reference range 557501719 R79.89 Anemia 415775910 D64.9 More iron in diet Adult heal th examination 898458003 Z00.00 Screening for disorder 193246716 Z13.9 Administra tion of influenza vaccine 67328214 Z23 Administra tion of pneumococcal vaccine 19636243 Z23 [id number] Sabine modi MD [facility] Internal Med [facility] [address] [facility], [facility] [address] [place] [address] 06/26/2024 10:05:29 06/26/2024 10:59:57 Cramping pain 870357832 R52 Get labsOn magnesiumM ay need to decrease her statin OV 11/15/2023 : Does well now Screening - NAD 54487481 3 Z13.9 C-scope: 04/18/17 Dr Saniya winston next in 5 years04/10: C-scope: Dr Saniya winston Mammogram: 04/03/16, negative, get anotherMam mogram: 05/16/18: NegMammogr am: 01/24/2021 : NegMammogr am: 10/23/2022 : Neg DEXA: 01/24/2021 : WNL, ordered 10/17/2022 DEXA: 03/15/2023 : Normal PAP: Did see Dr Bates 07/29/2020 , on PRN fluconozol e given by Dr Valdez Get yearly flu shotCan get Tdap, declinesUT D on COVID 19 vaccineCan do RSV vaccineGet shingrix vaccineCan do PCV #20 RTC in 4 monthsDo labsER if any symptoms worsenshe did verbalize her understand ing of the above. Type 2 karen betes mellitus without complication 888185520 E11.[address] Meehan Not on pioglitazo ne 15mg daily, dose reduced by Dr Meza 07/12/2021 Not on jardiance 25mg daily Needs to see the eye MD Dr Ennis 12/12/2021 Heart murmur 40838927 R0 1.1 CTA Aorto iliofemora l: No significan t arterial stenosis, hepatic steatosis, DJD in L spineStres s test 08/03/2020 : neg US ECHO: 08/03/2020 : EF 60%, normal LVFx, mild MRUS renal artery: 08/03/[address] Bedolla [facility] last OV 10/24/2021 , f/u yearly Liver enzy mes level above reference range 980172405 R74.01 S/p US liver: 07/27/2020 : Fatty liver Is to see Glenna Mercado SENIOR STRUCTURAL ENGINEER for hepatology Hyperlipidemia 16120872 E78.5 On zetia 10mg daily, d/fely this On rosuvastat in 20mg daily, will d/c this d/t leg crampsOn vascepaGet labs Essential hypertension 17923326 I10 Not on atenolol 50mg daily, now on 25mg daily Not on nifedipine ER 30mg dailyOn lisinopril 40mg dailyOn chlorthali done 25mg daily, Dr Meza 10/21/2023 Not on spironolac tone 25mg 1/[address] Meza 02/12/2024 Get labs Hypothyroidism 90740053 E03.9 On synthroid 100mcgs dailyTSH, FT4 is ordered by Dr Meehan Moderate r ecurrent major depression 95353556 F33.1 On paroxitine 30mg dailyNot suicidal or homicidalD eclines any referrals to psychiatry Chronic ki dney disease 270944793 N18.9 On [address] D weekly Dr Pérez apt with Dr Meza Dementia 87886919 F03.90 Does wellMRI brain 01/24/2021 : Unremarkab le Obstructiv e sleep apnea syndrome 35061466 G47.33 She does use her CPAP and is again advised to see pulmonary Parisa Olson SENIOR STRUCTURAL ENGINEER 07/25/2021 Allergic rhinitis 965779 04 J30.9 On flonaseOn loratidine Does well Pain of bi lateral hip joints 6525398043 8078363 M25.[address] Munroe 01/30/2022 S/p steroids Screening mammography 24 819698 Z12.31 Thrombocyt openic disorder 182946034 D69.6 PLT WNL 11/12/2023 Serum farzad min B12 below reference range 101147484 R79.89 Anemia 826087966 D64.9 More iron in diet Screening for malignant neoplasm of colon 860560297 Z12.11 [id number] Maria Del Carmen Guidry DPM [facility] Podiatry [place] [address] [place] [address] 1 07/25/2024 11:43:04 07/28/2024 10:53:04 [id number] Zaheer Montilla MD S_[facility] Pulmonolo gy [place] [address] 0 08/28/2024 09:58:14 09/02/2024 10:37:16 Obstructive sleep apnea syndrome 88605319 G47.33 [id number] Sabine modi MD [facility] Internal Med [facility] [place] [address] [place] [address], [place] [address] 1 10/02/2024 16:01:42 10/02/2024 17:10:50 Cramping pain 280681402 R52 Get labsOn magnesiumM ay need to decrease her statin OV 11/15/2023 : Does well now Screening - NAD [id number] Z13.9 C-scope: 04/18/17 Dr Kothari n next in 5 years04/10: C-scope: Dr Kothari nIs now scheduled on 10/24/2024 at [place] Mammogram: 04/03/16, negative, get anotherMam mogram: 05/16/18: NegMammogr am: 01/24/2021 : NegMammogr am: 10/23/2022 : Neg DEXA: 01/24/2021 : WNL, ordered 10/17/2022 DEXA: 03/15/2023 : Normal PAP: Did see Dr Bates 07/29/2020 , on PRN fluconozol e given by Dr Valdez Get yearly flu shotCan get Tdap, declinesUT D on COVID 19 vaccineCan do RSV vaccineGet shingrix vaccineCan do PCV #20 RTC in 4 monthsDo labsER if any symptoms worsenshe did verbalize her understand ing of the above. Type 2 karen betes mellitus without complication [id number] E11.[address] Meehan Not on pioglitazo ne 15mg daily, dose reduced by Dr Meza 07/12/2021 Not on jardiance 25mg daily Needs to see the eye MD Dr Ennis 12/12/2021 Heart murmur [id number] R0 1.1 CTA Aorto iliofemora l: No significan t arterial stenosis, hepatic steatosis, DJD in L spineStres s test 08/03/2020 : neg US ECHO: 08/03/2020 : EF 60%, normal LVFx, mild MRUS renal artery: 08/03/[address] Bedolla [facility] last OV 10/24/2021 , f/u yearly Liver enzy mes level above reference range [id number] R74.01 S/p US liver: 07/27/2020 : Fatty liver Is to see Glenna Mercado SENIOR STRUCTURAL ENGINEER for hepatology Hyperlipidemia 85245812 E78.5 On zetia 10mg daily, d/fely this On rosuvastat in 20mg daily, will d/c this d/t leg crampsNow will get to rosuvastat in to 10mg daily as per Dr Meza's requestOn vascepaGet labs Essential hypertension [id number] I10 Not on atenolol 50mg daily, now on 25mg daily Not on nifedipine ER 30mg dailyOn lisinopril 40mg dailyOn chlorthali done 25mg 1/2 tab daily, Dr Mejia on spironolac tone 25mg 1/[address] Meza 02/12/2024 Get labs Hypothyroidism [id number] E03.9 On synthroid 100mcgs dailyTSH, FT4 is ordered by Dr Meehan Moderate r ecurrent major depression [id number] F33.1 On paroxitine 30mg dailyNot suicidal or homicidalD eclines any referrals to psychiatry Chronic ki dney disease 232861064 N18.9 On vit D weekly Dr Cuevasep apt with Dr Meza next apt is in 03/2025 Dementia [id number] F03.90 Does wellMRI brain 01/24/2021 : Unremarkab le Obstructiv e sleep apnea syndrome [id number] G47.33 She does use her CPAP and is again advised to see pulmonary Parisa Olson SENIOR STRUCTURAL ENGINEER 07/25/2021 OV 10/02/2024 :Dr Eladia seals apt 08/27/2025 Allergic rhinitis 016771 04 J30.9 On flonaseOn loratidine Does well Pain of bi lateral hip joints [id number] 4822349 M25.[address] Munroe 01/30/2022 S/p steroids Screening mammography 24 306693 Z12.31 Thrombocyt openic disorder [id number] D69.6 PLT WNL 11/12/2023 Serum farzad min B12 below reference range 438656616 R79.89 Anemia 277031030 D64.9 More iron in diet Health Concerns Section Related Observation LastModified by Organization Detai ls LastModified Time None Recorded Concern Status LastModified by Organization Details LastModified Time None Recorded Advance Directives Directive N: Payers Insurance Date Sequence Insurance Name Policy Number Policy Grant Covered Member ID Grant Member ID Guarantor Name 10/06/2024 1 [facility] (MEDICARE REPLACEMENT/A DVANTAGE - HMO) [id number] Holly Fournier [id number] Holly Fournier Notes Date Note Type Note Provider Name and Address Organization Details Recorded Time 03/20/2024 text/html 12/04/16Past Hx:HTNHLDDepressionHyp othyroidismReviewed her past social , family and surgical historyShe states that she contineus with having some body aches, is on meloxicam and feels that this is not helping much.She states that she has had pain in the hips and has seen Dr Portillo, and was told she had bursitis, and was treated with celebrex, now also has pain in the L arm and hurts to lift up her arm, has also noticed a rash on the lower legs.She states that she does need to get her CPAP supplies, she states that she wears her CPAP daily, is very compliant with it and this does help her sleep thru the night.Here today for the above complaints as well as discuss the test results. OV 03/06/17:Here to review her labs that were recently done, she still has some fatigue and generalized body aches and is to see a rheumOV 09/03/17:Here for her routine aptShe states that she is doing well at this timeShe did do the labs on 08/21/17 and is here to review theseOV 12/03/17:Here for her routine aptShe is here with her husbandShe states that she has some 'nerves are tingly'She has seen a neurology in [facility] and was told that by Dr Sandrita Rand and was told that she was all 'OK'She did not have an EMGNo weakness in UE or LE, no seizures, no loss of control of bowel, bladderNo diplopiaShe dd not do the labs OV 03/04/18:Here for her routine aptShe states that she has seen Dr Meehan who has done labs on her on 12/28/17OV 05/08/17:Here as her BP check, noted her BP were 'high', upto 170-180 so she made this aptRecently her diedShleo has restarted the nifedipine ER 30mg dailyNo other complaints at this timeOV 06/10/18:Here for her one month aptShe did do the labsShe did see Dr Meehan also on 05/23/18OV 08/13/18:Here as ACV:Here with itching rash on the posterior scalpC/o intense itchingNo fevers or chillsNo change in diet or soap or detergentNo fever or chills OV 10/08/18:Here for her routine aptShe did see Dr Malhotra dermatology last week, for the rash, she was treated with a cream and the itching is now resolvedDid get labs with herShe has had some diarrhea, sometimes it is wateryNo blood, smelly, does have abd pain in the groin, this is going on since 4 weeksNo fevers or chillsNo N/V or constipationIs able to eat wellNo prior diarrheaOV 11/25/18:Here for ACV:C/o URI sx with a cough, no fevers or chills, no N/V feels gassy, no blood in stoolNo blood in sputumSome slight nasal congestionNo chest pain or SOB, no wheezing OV 01/14/19:Here for her routine aptShe did see Dr Barajas did sprain her L heel while chasing the dogWants to discuss the BPOV 01/28/19:Here for her BP checkIs doing well otherwiseDid take her medicationsOV 06/03/2020:Here to re establish careRyanne is doing Shani has no new labsShleo does c/o 'memory loss' states that she has on occasion forgotten the name of her dogShe did use to take meds for seizures uptill her 20s but has not had any seizures since thenNo MRI brain done recentlyRyanne also feels worried about the COVID 19 pandamicRyanne has seen Parisa Olson SENIOR STRUCTURAL ENGINEER for her CPAP also OV 07/29/2020:Here for her 6 weeks aptShleo did do the labsShe has also seen Dr aBrajas feels well, is worried about her BP and cholesterol OV 09/09/2020:Here for her 2 months f/uShe feels well nowRyanne did do the labs on 07/29/2020 OV 01/18/2021:Here for her routine aptShleo is doing Shani has no new labs, states that she was just too busy to do these OV 07/19/2021:Here for her f/u apt, she is wellNo recent labs since 03/16/2021he did see Dr Meza and he suggested that she get back on the crestor as he feels that her cramping is d/t her neuropathy and is now on gabapentin OV 10/25/2021:Here for her wellness aptRyanne feels Shani did do the labs on 10/14/2021 OV 02/28/2022:Here for her f/u apt, she is doing well now, she did do the labs on 02/24/2022 OV 10/17/2022: Here for her f/u apt, she is doing well, she does have low BP OV 12/19/2022: Here for ACV, C/o LBP, mid back, no radiation, no injury, no loss of bowel or bladder control, no LE weaknessHas also noted some abdominal discomfort, normal appetite, no blood in urine or stool, no N/V or diarrhea, no constipation OV 02/13/2023: Here for her f/u apt, she is doing well OV 07/17/2023: Here for her routine apt, she feels well, she did do the labs on 07/13/2023, she does c/o fatigue during the daytime, feels that her CPAP is not functioning well, she has seen Parisa Rod SENIOR STRUCTURAL ENGINEER in the past, and would now need to see another tug boat captain, she also sees Dr Meza and is not on any diabetes meds, states that the Jardiance really gave her a lot of yeast infections OV 10/29/2023: Here for ACV: Has noted some cramping pain in the legs OV 11/15/2023: Here for her f/u apt., she is doing well now OV 03/20/2024: Here for her routine apt and her MWV, she is doing well today Sabine Holt MD [address] [place] [address] [place], [facility] [address], [place], [address], [place] [facility] [employer] 03/26/2024 19:07:38 06/26/2024 text/html 12/04/16Past Hx:HTNHLDDepressionHyp othyroidismReviewed her past social , family and surgical historyShe states that she contineus with having some body aches, is on meloxicam and feels that this is not helping much.She states that she has had pain in the hips and has seen Dr Portillo, and was told she had bursitis, and was treated with celebrex, now also has pain in the L arm and hurts to lift up her arm, has also noticed a rash on the lower legs.She states that she does need to get her CPAP supplies, she states that she wears her CPAP daily, is very compliant with it and this does help her sleep thru the night.Here today for the above complaints as well as discuss the test results. OV 03/06/17:Here to review her labs that were recently done, she still has some fatigue and generalized body aches and is to see a rheumOV 09/03/17:Here for her routine aptShe states that she is doing well at this timeShe did do the labs on 08/21/17 and is here to review theseOV 12/03/17:Here for her routine aptShe is here with her husbandShe states that she has some 'nerves are tingly'She has seen a neurology in [facility] and was told that by Dr Sandrita Rand and was told that she was all 'OK'She did not have an EMGNo weakness in UE or LE, no seizures, no loss of control of bowel, bladderNo diplopiaShe dd not do the labs OV 03/04/18:Here for her routine aptShe states that she has seen Dr Meehan who has done labs on her on 12/28/17OV 05/08/17:Here as her BP check, noted her BP were 'high', upto 170-180 so she made this aptRecently her Tree has restarted the nifedipine ER 30mg dailyNo other complaints at this timeOV 06/10/18:Here for her one month aptShe did do the labsShe did see Dr Meehan also on 05/23/18OV 08/13/18:Here as ACV:Here with itching rash on the posterior scalpC/o intense itchingNo fevers or chillsNo change in diet or soap or detergentNo fever or chills OV 10/08/18:Here for her routine aptShe did see Dr Malhotra dermatology last week, for the rash, she was treated with a cream and the itching is now resolvedDid get labs with herShe has had some diarrhea, sometimes it is wateryNo blood, smelly, does have abd pain in the groin, this is going on since 4 weeksNo fevers or chillsNo N/V or constipationIs able to eat wellNo prior diarrheaOV 11/25/18:Here for ACV:C/o URI sx with a cough, no fevers or chills, no N/V feels gassy, no blood in stoolNo blood in sputumSome slight nasal congestionNo chest pain or SOB, no wheezing OV 01/14/19:Here for her routine aptShe did see Dr Barajas did sprain her L heel while chasing the dogWants to discuss the BPOV 01/28/19:Here for her BP checkIs doing well otherwiseDid take her medicationsOV 06/03/2020:Here to re establish careRyanne is doing wellShe has no new labsShe does c/o 'memory loss' states that she has on occasion forgotten the name of her dogShe did use to take meds for seizures uptill her 20s but has not had any seizures since thenNo MRI brain done recentlyRyanne also feels worried about the COVID 19 pandamicRyanne has seen Parisa Olson SENIOR STRUCTURAL ENGINEER for her CPAP also OV 07/29/2020:Here for her 6 weeks aptRyanne did do the labsShleo has also seen Dr Barajas feels well, is worried about her BP and cholesterol OV 09/09/2020:Here for her 2 months f/uSjenn feels well nowRyanne did do the labs on 07/29/2020 OV 01/18/2021:Here for her routine aptShleo is doing Shani has no new labs, states that she was just too busy to do these OV 07/19/2021:Here for her f/u apt, she is wellNo recent labs since 03/16/2021he did see Dr Meza and he suggested that she get back on the crestor as he feels that her cramping is d/t her neuropathy and is now on gabapentin OV 10/25/2021:Here for her wellness aptRyanne feels Shani did do the labs on 10/14/2021 OV 02/28/2022:Here for her f/u apt, she is doing well now, she did do the labs on 02/24/2022 OV 10/17/2022: Here for her f/u apt, she is doing well, she does have low BP OV 12/19/2022: Here for ACV, C/o LBP, mid back, no radiation, no injury, no loss of bowel or bladder control, no LE weaknessHas also noted some abdominal discomfort, normal appetite, no blood in urine or stool, no N/V or diarrhea, no constipation OV 02/13/2023: Here for her f/u apt, she is doing well OV 07/17/2023: Here for her routine apt, she feels well, she did do the labs on 07/13/2023, she does c/o fatigue during the daytime, feels that her CPAP is not functioning well, she has seen Parisa Rod SENIOR STRUCTURAL ENGINEER in the past, and would now need to see another tug boat captain, she also sees Dr Meza and is not on any diabetes meds, states that the Jardiance really gave her a lot of yeast infections OV 10/29/2023: Here for ACV: Has noted some cramping pain in the legs OV 11/15/2023: Here for her f/u apt., she is doing well now OV 03/20/2024: Here for her routine apt and her MWV, she is doing well today OV 06/26/2024: Here for her routine apt, she is doing well Sabine Holt MD [address], [place], [address], [employer] 06/26/2024 18:31:47 07/25/2024 text/html Pt RTC for c/o p ainful bunions both feet, and calluses; hammertoes digits samantha also painful especially in shoes. Maria Del Carmen Guidry, DPM [address], [place], [address], [employer] 07/28/2024 08:54:57 08/28/2024 text/html Primary care/Ref erring provider: Sabine Holt MD CC: I am still waking up with xerostomia. During the [facility] home sleep study on 08/23/22, AHI = 19. At home since 08/29/23, the patient uses a [employer]Med AirSense 10 autoset unit with heated humidification. The patient does not need the ramp to start low and go up slowly on the pressure anymore. There is some xerostomia in a.m. There is no hose/mask condensation with water.The patient wears a [employer] small AirFit N10 nasal mask without chin strap. There is no claustrophobia, no nostril/nose bridge irritation, no facial rash, no facial numbness, no nosebleeding. The patient feels more refreshed upon waking and daytime alertness is improved. Energy levels are sustained until early afternoon, around 2 pm. At home, the patient sleeps from 11:30 pm to 8 am and wakes up without an alarm. Snoring: moderate, since .Snorting: noChoking: noCoughing: noGasping: noGagging: noSighing: noWitnessed apnea: yesTwitching or jerking of leg(s), arm(s), body, head: noTeeth grinding: noTeeth clenching: noSleeptalking: noSleepwalking: noSleep crying: yesBedwetting: noTongue/lip/gum/cheek biting: noSleeping with open mouth: yesSleep paralysis: noHypnagogic hallucinations: noHypnopompic hallucinations: noVivid dreams: noDifficulty with sleep onset: yesDifficulty with sleep maintenance: yesSleep interruptions: nocturia x 1Patient wakes up with: fatigue, xerostomia, disorientation, mobility impairment, dexterity impairmentDaytime cataplexy: noMorning hypersomnolence: yesAfternoon hypersomnolence: yesCaffeine sources in diet: tea 32 oz per day, soda 1 glass per week, chocolate 1 candy bar per week Associated medical and psychiatric conditions:Congestive heart failure: noCoronary artery disease: noMyocardial infarction: noHypertension: yesStroke: noBronchial asthma: noChronic obstructive pulmonary disease: noDepression: noBipolar disorder: noAnxiety: yesPanic disorder: noPosttraumatic stress disorder: noAttention deficit and hyperactivity disorder: noObsessive Compulsive disorder: noSchizophrenia: noSchizoaffective disorder: noPersonality disorder: noChronic analgesic use: noChronic sedative/hypnotic use: no EPWORTH SLEEPINESS SCALE (ESS) CHANCE OF DOZING SCORE0 = would never doze1 = slight chance of dozing2 = moderate chance of dozing3 = high chance of dozing SITUATION AND CHANCE OF DOZINGSitting and reading - 3Watching television - 3Sitting inactive in a public place (e.g. a theater or meeting) - 0As a passenger in a car for an hour without a break - 2Lying down to rest in the afternoon when circumstances permit - 0Sitting and talking to someone - 0Sitting quietly after lunch without alcohol - 2In a car, while stopped for a few minutes in the traffic - 0TOTAL SCORE 10Subjectively, patient has a moderate chance of dozing. Zaheer Montilla MD [address], [place], [address], [place] [facility] 08/28/2024 11:07:59 10/02/2024 text/html 12/04/16Past Hx:HTNHLDDepressionHyp othyroidismReviewed her past social , family and surgical historyShe states that she contineus with having some body aches, is on meloxicam and feels that this is not helping much.She states that she has had pain in the hips and has seen Dr Portillo, and was told she had bursitis, and was treated with celebrex, now also has pain in the L arm and hurts to lift up her arm, has also noticed a rash on the lower legs.She states that she does need to get her CPAP supplies, she states that she wears her CPAP daily, is very compliant with it and this does help her sleep thru the night.Here today for the above complaints as well as discuss the test results. OV 03/06/17:Here to review her labs that were recently done, she still has some fatigue and generalized body aches and is to see a rheumOV 09/03/17:Here for her routine aptShe states that she is doing well at this timeShe did do the labs on 08/21/17 and is here to review theseOV 12/03/17:Here for her routine aptShe is here with her husbandShe states that she has some 'nerves are tingly'She has seen a neurology in [facility] and was told that by Dr Sandrita Rand and was told that she was all 'OK'She did not have an EMGNo weakness in UE or LE, no seizures, no loss of control of bowel, bladderNo diplopiaShe dd not do the labs OV 03/04/18:Here for her routine aptShe states that she has seen Dr Meehan who has done labs on her on 12/28/17OV 05/08/17:Here as her BP check, noted her BP were 'high', upto 170-180 so she made this aptRecently her diedShe has restarted the nifedipine ER 30mg dailyNo other complaints at this timeOV 06/10/18:Here for her one month aptShe did do the labsShe did see Dr Meehan also on 05/23/18OV 08/13/18:Here as ACV:Here with itching rash on the posterior scalpC/o intense itchingNo fevers or chillsNo change in diet or soap or detergentNo fever or chills OV 10/08/18:Here for her routine aptShe did see Dr Malhotra dermatology last week, for the rash, she was treated with a cream and the itching is now resolvedDid get labs with herShe has had some diarrhea, sometimes it is wateryNo blood, smelly, does have abd pain in the groin, this is going on since 4 weeksNo fevers or chillsNo N/V or constipationIs able to eat wellNo prior diarrheaOV 11/25/18:Here for ACV:C/o URI sx with a cough, no fevers or chills, no N/V feels gassy, no blood in stoolNo blood in sputumSome slight nasal congestionNo chest pain or SOB, no wheezing OV 01/14/19:Here for her routine aptShe did see Dr Barajas did sprain her L heel while chasing the dogWants to discuss the BPOV 01/28/19:Here for her BP checkIs doing well otherwiseDid take her medicationsOV 06/03/2020:Here to re establish careRyanne is doing Shani has no new labsShe does c/o 'memory loss' states that she has on occasion forgotten the name of her dogShe did use to take meds for seizures uptill her 20s but has not had any seizures since thenNo MRI brain done recentlySajileo also feels worried about the COVID 19 pandamicRyanne has seen Parisa Olson SENIOR STRUCTURAL ENGINEER for her CPAP also OV 07/29/2020:Here for her 6 weeks aptShe did do the labsShe has also seen Dr Barajas feels well, is worried about her BP and cholesterol OV 09/09/2020:Here for her 2 months f/uShe feels well nowRyanne did do the labs on 07/29/2020 OV 01/18/2021:Here for her routine aptShe is doing Shani has no new labs, states that she was just too busy to do these OV 07/19/2021:Here for her f/u apt, she is wellNo recent labs since 03/16/2021he did see Dr Meza and he suggested that she get back on the crestor as he feels that her cramping is d/t her neuropathy and is now on gabapentin OV 10/25/2021:Here for her wellness aptRyanne feels wellShe did do the labs on 10/14/2021 OV 02/28/2022:Here for her f/u apt, she is doing well now, she did do the labs on 02/24/2022 OV 10/17/2022: Here for her f/u apt, she is doing well, she does have low BP OV 12/19/2022: Here for ACV, C/o LBP, mid back, no radiation, no injury, no loss of bowel or bladder control, no LE weaknessHas also noted some abdominal discomfort, normal appetite, no blood in urine or stool, no N/V or diarrhea, no constipation OV 02/13/2023: Here for her f/u apt, she is doing well OV 07/17/2023: Here for her routine apt, she feels well, she did do the labs on 07/13/2023, she does c/o fatigue during the daytime, feels that her CPAP is not functioning well, she has seen Parisa Rod SENIOR STRUCTURAL ENGINEER in the past, and would now need to see another tug boat captain, she also sees Dr Meza and is not on any diabetes meds, states that the Jardiance really gave her a lot of yeast infections OV 10/29/2023: Here for ACV: Has noted some cramping pain in the legs OV 11/15/2023: Here for her f/u apt., she is doing well now OV 03/20/2024: Here for her routine apt and her MWV, she is doing well today OV 06/26/2024: Here for her routine apt, she is doing well OV 10/02/2024: Here for her f/u apt, she is doing well, she did do the labs Sabine Holt MD [address], [address], [place], [address], [facility] [employer] [facility] 10/02/2024 18:23:22 OBGyn Episode No OBEpisode recorded.
--- OUTSIDE RECORDS SUMMARY | 2024-10-24 00:39 | XMS_ITS ---
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 Encounter Medications Medication SIG (Take, Route, Frequency, Duration) Notes Start Date End Date Status Unithroid 100 MCG (0.1 MG) TAKE 1 TABLET BY MOUTH EVERY DAY IN THE MORNING for 90 DAYS *Please review and pick correct strength[facility]ulati [facility] options. If intended option is not shown, discontinue and re-order from Quick Search* Active Farxiga 5 MG 1 tab(s) orally once a day for 90 days 01/31/2024 Active Melatonin 5 MG 1 tab(s) orally once a day (at bedtime) Active Chlorthalidone 25 MG for 90 Days Active Vascepa 1 GM TAKE 2 CAPSULES BY MOUTH TWICE A DAY for 30 Days Active Spironolactone 25 MG for 90 Days Active Vitamin D (Ergocalciferol) 1.25 MG (22634 UT) TAKE 1 CAPSULE (50,000 UNITS TOTAL) BY MOUTH ONCE WEEKLY for 84 Days Active PARoxetine HCl 30 MG 1 tab(s) orally once a day for 30 days 01/11/2024 Active Encounters Encounter [facility] Date [facility] [address] [place] [address] [facility]/22/[facility]24 Provider Migration Prediabetes R73.03 Assessments Encounter Date Diagnosis (ICD Code) Assessment Notes Treatment Notes Treatment Clinical Notes Section Notes 03/22/2024 Prediabetes (ICD-10 - R73.03) Plan Of Treatment Medication Medication Name Sig Start Date Stop Date Notes Farxiga 5 MG 1 tab(s) orally once a day for 90 days 2023 Progress Notes * CLAY HERNANDEZADOB: [birth year] (69 yo F)Acc No.[id number]:03/22/2024 Patient: YONATAN KITCHEN Provider: Jennie Tidwell :1955 A ge:68 Y S ex:Female Date:03/22/2024 Address:[address] [place], [place] [id number] Pcp:Beulah Meehan Subjective: * Chief Complaints: * 1 . [facility]. * Medical History: * Medications: T aking Melatonin 5 MG Tablet 1 tab(s) orally once a day (at bedtime) , Taking Vascepa(Icosapent Ethyl) 1 GM Capsule TAKE 2 CAPSULES BY MOUTH TWICE A DAY , Taking Chlorthalidone 25 MG Tablet , Taking Vitamin D (Ergocalciferol) 1.25 MG (15350 UT) Capsule TAKE 1 CAPSULE (50,000 UNITS TOTAL) BY MOUTH ONCE WEEKLY , Taking Spironolactone 25 MG Tablet , Taking PARoxetine HCl 30 MG Tablet 1 tab(s) orally once a day , Taking Unithroid 100 MCG (0.1 MG) TABLET TAKE 1 TABLET BY MOUTH EVERY DAY IN THE MORNING , Notes to Pharmacist: *Please review and pick correct strength-formulation [facility] options. If intended option is not shown, discontinue and re-order from Quick Search* * Allergies: h ydroCHLOROthiazide, metFORMIN. Objective: * Vitals: Assessment: * Assessment: 1. P rediabetes - R73.03 Plan: * Treatment: * Billing Information: * Visit Code: * Procedure Codes: * Electronic signature of Dipesh hopkins Migration on 10/24/2024 at 12:39 AM CDT Sign off status: Pending * Provider: Jennie Tidwell Date: 1 05/22/2023 Generated for Page carver/Samm/Nessitting on: 10/24/2024 12:39 AM FAUSTINOT
--- OUTSIDE RECORDS SUMMARY | 2024-10-24 00:40 | XMS_ITS | CONTINUITY OF CARE DOCUMENT ---
Author Name minerva palma Address Unknown Organization [facility] Address [address] [place] [address] Phone [phone] Care Team Providers Care Measurement Operator Name Role Phone Bradley Roca MD Unavailable [phone] HECTOR FALLON MD Unavailable [phone] HECTOR FALLON MD Unavailable PROBLEMS Condition Status Date Provider Notes Renal artery stenosis, right active Tony fung MITRAL VALVE PROLAPSE active Sandra winston History of SEIZURE DISORDER- none since 1972 active Bradley Roca MD ANXIETY DISORDER GENERALIZED active Dustinetrtashia paez Sarmad HYPOTHYROIDISM active Denvaldez Bañuelos Cardiology examination active Rosaura murillo MANUFACTURER'S REPRESENTATIVE Hypertension active Bradley Roca MD Leg pain, right--mild atherosclerosis on ANTONIA, 05/2021 active Tony Contreras Lumbar disc degeneration, advanced, w/ spinal stenosis active Hung Acevedo Stenosis of abdominal aorta, no sig disease CTA 08/25 active Hung Acevedo Hyperlipidemia active Bradley Roca MD Prediabetes active Bobby Gonzalez Basim Shortness of breath--echo ef 60%, 07/2020 active Tony Jacobsi Fatigue active Bobby C Basim HYPERCHOLESTEROLEMIA-LABS PE R DR. LONGO completed - Bobby C Basim CHEST PAIN-nl rega stress 07/25 active Hung Acevedo FAMILY HX CARDIOVASCULAR DISEASE completed - Bobby Gonzalez [place] HYSTERECTOMY, HX OF completed - Bradley Roca MD SLEEP APNEA; on CPAP active Bobby Stallworth ENCOUNTERS Date Type Provider Location Encounter Diag nosis - In-person encounter Office Visit Bradley Roca MD [facility] Cardiology examination - In-person encounter Office Visit Bradley Roca MD [facility] Hypertension - In-person encounter Office Visit Bradley Roca MD [facility] - In-person encounter Office Visit Bradley Roca MD [facility] HyperlipidemiaLeg pain, right--mild atherosclerosis on ANTONIA, 05/2021 - In-person encounter Office Visit Bradley Roca MD [facility] Shortness of breath--echo ef 60%, 07/2020 - In-person encounter Office Visit Bradley Roca MD [facility] Leg pain, right--mild atherosclerosis on ANTONIA, 05/2021 - In-person encounter Office Visit Bradley Roca MD [facility] - In-person encounter Office Visit Bradley Roca MD [facility] Stenosis of abdominal aorta, no sig disease CTA 08/25Lumbar disc degeneration, advanced, w/ spinal stenosis - In-person encounter Office Visit Bradley Roca MD [facility] CHEST PAIN-nl rega stress enosis of abdominal aorta, no sig disease CTA 08/25 - In-person encounter Office Visit Bradley Roca MD [facility] SLEEP APNEA; on CPAPHYSTERECTOMY, HX OFFAMILY HX CARDIOVASCULAR DISEASEHYPERCHOLESTEROLEMIA- LABS PER DR. LONGOFatigueShortness of breath--echo ef 60%, 1PrediabetesHyperlipid emia - In-person encounter Office Visit Diogenes Argueta MD [facility] - In-person encounter Office Visit Diogenes Argueta MD [facility] VITAL SIGNS Date Observation Value Provider Body Mass Index (Ratio) 27.46 kg/m2 Janes Roca MD blood pressure, diastolic 78 mm[Hg] Patience scruggscyrus Kaplan blood pressure, systolic 148 mm[Hg] Susana colincyrus Kaplan oxygen saturation, oximetry 97 % Linda Kaplan pulse rate 71 /[facility] E&M 12 /min [facility] weight E&M 160 [lb_av] [facility] height E&M 64 [in_i] [facility] blood pressure, cuff size regular [facility] Body Mass Index (Ratio) 28.49 kg/m2 Janes Roca MD blood pressure, diastolic 80 mm[Hg] Jamila nkLog blood pressure, systolic 163 mm[Hg] Sima kLog blood pressure, cuff size regular Julien rret blood pressure, diastolic 80 mm[Hg] Julien rret blood pressure, systolic 163 mm[Hg] Jar ret pulse rate 71 /min Tarik oxygen saturation, oximetry 98 % Tarik respiratory rate E&M 14 /min Tarik weight E&M 166 [lb_av] Tarik y height E&M 64 [in_i] Tarik y Body Mass Index (Ratio) 30.89 kg/m2 Janes Roca MD blood pressure, diastolic 64 mm[Hg] Jamila nkLogic blood pressure, systolic 124 mm[Hg] Sima kLogic blood pressure, diastolic 64 mm[Hg] [facility] elmer [place] blood pressure, systolic 124 mm[Hg] Tyler winkler [place] oxygen saturation, oximetry 97 % Jyotsna [place] pulse rate 62 /min Jyotsna Delaneyma n respiratory rate E&M 16 /min Nakul herrera [place] weight E&M 180 [lb_av] Jyotsna [facility] n blood pressure, cuff size large St payne [place] height E&M 64 [in_i] Jyotsna Delaneyor n Body Mass Index (Ratio) 30.38 kg/m2 Janes Roca MD blood pressure, cuff size large Ariadne ortiz [place] blood pressure, diastolic 60 mm[Hg] Mi angel [place] blood pressure, systolic 130 mm[Hg] Aly helstas [place] oxygen saturation, oximetry 97 % Erika Rendon respiratory rate E&M 16 /min Latanya bailey Rendon pulse rate 84 /min Erika isaacs weight E&M 177 [lb_av] Erika isaacs height E&M 64 [in_i] Erika isaacs Body Mass Index (Ratio) 30.72 kg/m2 Janes Roca MD blood pressure, resting Yes Raad Dsouza blood pressure, cuff size regular Alondra Dsouza blood pressure, diastolic 70 mm[Hg] Alondra Dsouza blood pressure, systolic 147 mm[Hg] Dinora Dsouza oxygen saturation, oximetry 96 % Tiarra Dsouza respiratory rate E&M 16 /min Carin Dsouza pulse rate 57 /min Tiarra lao weight E&M 179 [lb_av] Tiarra lao height E&M 64 [in_i] Tiarra lao Body Mass Index (Ratio) 32.78 kg/m2 Janes Roca MD blood pressure, cuff size large Ke rri Gruenenfelder blood pressure, diastolic 62 mm[Hg] Ke rri Gruenenfelder blood pressure, systolic 142 mm[Hg] Ker ri Gruenenfelder oxygen saturation, oximetry 97 % Evelin Gruenenfelder respiratory rate E&M 16 /min Evelin G radhaenenfelder pulse rate 64 /min Evelin Gruenenfe lder weight E&M 191 [lb_av] Evelin Gruenenfe lder height E&M 64 [in_i] Evelin Gruenenfe lder Body Mass Index (Ratio) 32.44 kg/m2 Janes Roca MD blood pressure, cuff size regular Cy ntshyannea Rogelio blood pressure, diastolic 78 mm[Hg] Cy ntsudhir Mercado blood pressure, systolic 140 mm[Hg] Rebecca steph Mercado oxygen saturation, oximetry 97 % Shonda Mercado pulse rate 61 /min Shonda Campbel l respiratory rate E&M 16 /min Shonda Mercado weight E&M 189 [lb_av] Shonda Campbel l height E&M 64 [in_i] Shonda Campbel l Body Mass Index (Ratio) 32.95 kg/m2 Janes Roca MD blood pressure, cuff size large Ke rri Bijanuenesalazareldbill blood pressure, diastolic 70 mm[Hg] Ke rri Ava blood pressure, systolic 160 mm[Hg] Katrin blake Bijantamararitosalazarjulian oxygen saturation, oximetry 96 % Evelin Flanaganjulian respiratory rate E&M 16 /min Evelin Coates radhacamillejulian pulse rate 59 /min Evelin Henriquez lder weight E&M 192 [lb_av] Evelin Henriquez lder height E&M 64 [in_i] Evelin Henriquez er blood pressure, diastolic, left arm 72 mm [Hg] Hensley [place] blood pressure, systolic, left arm 133 mm [Hg] Hensley [place] blood pressure, diastolic, right arm 71 m m[Hg] Hensley [place] blood pressure, systolic, right arm 136 m m[Hg] Hensley [place] blood pressure, diastolic 71 mm[Hg] Alejandra seph [place] blood pressure, systolic 136 mm[Hg] Izaiah eph [place] pulse rate 76 /min [facility], oximetry 96 % [facility] rate E&M 16 /min Hensley [place] weight E&M 185 [lb_av] Papa [place] blood pressure, diastolic 80 mm[Hg] Julien Mckeon RN blood pressure, systolic 140 mm[Hg] Mp Mckeon RN pulse rate 53 /min Mp Mckeon RN oxygen saturation, oximetry 98 % Mp Mckeon RN respiratory rate E&M 18 /min Mp holland RN weight E&M 185 [lb_av] Mp Mckeon RN ALLERGIES Allergy Name Onset Date Reaction Criticality Status ERYTHROMYCIN High Criticality active RESULTS Date Observation Value Provider Reference Range Interpretation Location cholesterol, non-HDL, total 172 MG/DL (CALC) [facility] <130 High cholesterol/HDL ratio, serum, percent 4.7 (calc) [facility] <5.0 Normal LDL cholesterol, serum 141 MG/DL (CALC) [facility] High triglyceride, serum, fasting 177 mg/dL [facility] <150 High HDL cholesterol, serum 47 mg/dL [facility] > OR = 50 Low cholesterol, serum 219 mg/dL [facility] <200 High HISTORY OF MEDICATION USE Medication Status Instructions Dates Provider Indications Com ments rosuvastatin 20 mg tablet active TAKE 1 TABLET (20 MG TOTAL) BY MOUTH EVERY NIGHT. Rosaura Rogersmiglernesto DE JESUSP nifedipine 60 mg tablet extended release completed Take 1 tablet by mouth once a day - Rosaura Rogersmiglernesto DE JESUSP chlorthalidone 25 mg tablet active 1/2 tablet by mouth once a day [facility] rosuvastatin 20 mg tablet completed - [facility] Jardiance 25 mg tablet completed - Tony Contreras torsemide 10 mg tablet completed - Tony Contreras nifedipine 60 mg tablet extended release completed TAKE 1 TABLET BY MOUTH EVERY DAY - Evelin Escalante ezetimibe 10 mg tablet completed 1 tablet by mouth once a day - Tony Contreras Fish Oil 300-1,000 mg capsule completed 1 tablet by mouth once a day - Tony Contreras Crestor 5 mg tablet completed 1 tablet by mouth twice a week - Tony Contreras cholecalciferol (vitamin D3) 125 mcg (5,000 unit) capsule completed 2 pills a day - Tony Contreras FENOFIBRATE 160 MG ORAL TABLET completed ONE TAB. DAILY - Hung Acevedo melatonin 3 mg tablet active tablet by mouth as needed Evelin Escalante pioglitazone 30 mg tablet completed Take 1 tablet by mouth once a day - Tony Contreras #90, 90 days supply, Prescribed by JOSE BROWNING, Filled 05/14/2020 ergocalciferol (vitamin D2) 1,250 mcg (50,000 unit) capsule completed Take 1 capsule by mouth once a week - Tony Contreras #12, 84 days supply, Prescribed by JAYA STEWART, Filled 05/20/2020 nifedipine 60 mg tablet extended release completed take 1 tab daily - Shonda Mercado #90, 90 days supply, Prescribed by JAYA STEWART, Filled 06/18/2020 lisinopril 40 mg tablet active Take 1 tablet by mouth every morning Evelin Escalatne #90, 90 days supply, Prescribed by JAYA STEWART, Filled 06/18/2020 Synthroid 100 mcg tablet active Take 1 tablet by mouth once a day Evelin Escalante #30, 30 days supply, Prescribed by JAYA STEWART, Filled 07/01/2020 KEPPRA 250 MG ORAL TABLET completed 1 tablet by mouth twice daily - Evelin Escalante atenolol 50 mg tablet completed 1 tablet by mouth once a day - Tony Contreras SULINDAC 150 MG ORAL TABLET completed 1 tablet by mouth twice daily - Evelin Escalante VYTORIN 10-40 MG ORAL TABLET completed ONE TAB. AT BEDTIME - Evelin Escalante NIFEDIPINE ER 30 MG ORAL TABLET EXTENDED RELEASE 24 HOUR completed 1 tablet by mouth daily - Shonda Mercado LEVOTHYROXINE SODIUM 100 MCG ORAL TABLET completed 1 tablet by mouth daily - Evelin Escalante Paxil 30 mg tablet active Take 1 tablet by mouth once a day Shonda Mercado ASPIRIN 81 MG ORAL TABLET completed ONE TAB. DAILY - Mp Mckeon RN SOCIAL HISTORY Date Observation Value Provider personal history of marijuana use no Rosaura Ventimiglia MANUFACTURER'S REPRESENTATIVE drug use no Rosaura Ventimig usha MANUFACTURER'S REPRESENTATIVE alcohol use no Rosaura Ventimig usha [facility] smoking status Never smoker Tony Jacobstashia smoking status Never smoker Tony Jacobstashia Exercise counseling yes Luz Triplett physical exercise, frequency, days per week no Jyotsna Triplett caffeine use, averag e drinks per day yes Jyotsna Triplett smoking status Never smoker Jyotsna tejeda social history reviewed E&M revi ewed - no changes required Tony Contreras Exercise counseling yes Erika Justice physical exercise, frequency, days per week no Erika Justice caffeine use, averag e drinks per day yes Erika Justice smoking status Never smoker Erika Wilder lei social history reviewed E&M revi ewed - no changes required Tony Contreras social history reviewed E&M revi ewed - no changes required Tony Contreras Exercise counseling yes David Dsouza social history reviewed E&M revi ewed - no changes required Tony Contreras social history reviewed E&M revi ewed - no changes required Bradley Roca MD social history E&M Marital Statu s: L shauna with family/friends E thnicity: Smoking History: P chrissy has never smoked. Hung Acevedo social history reviewed E&M revi ewed - no changes required Hung Acevedo physical exercise, frequency, days per week no Evelin Escalante caffeine use, averag e drinks per day yes Evelin Escalante smoking status Never smoker Evelin watts social history E&M Marital Statu s: L shauna with family/friends E thnicity: Smoking History: P chrissy has never smoked. Hung Acevedo social history reviewed E&M revi ewed - no changes required Hung Acevedo physical exercise, frequency, days per week no Shonda Rogelio caffeine use, averag e drinks per day yes Shonda Mercado smoking status Never smoker Shonda Mariam valle number of grandchildren Bradley Stallworth social history E&M Marital Statu s: L shauna with family/friends E thnicity: Smoking History: P chrissy has never smoked. Bobby Stallworth social history reviewed E&M revi ewed - no changes required Bobby Stallworth smoking status Never smoker Evelin watts social history reviewed E&M reviewed Diogenes Argueta MD social history E&M Marital Statu s: L shauna with family/friends E thnicity: Mp Mckeon RN social history reviewed E&M reviewed Mp Mckeon RN physical exercise, frequency, days per week no [facility] caffeine use, averag e drinks per day yes [facility] alcohol use, average drinks per day none [facility] smoking status Non-smoker [facility] MENTAL STATUS Date Observation Value Provider assessment of judgme nt and insight E&M Alert and oriented to time, place and person. Mood and affect are normal. Diogenes Argueta MD assessment of judgme nt and insight E&M Alert and oriented to time, place and person. Mood and affect are normal. Mp Mckeon RN INSURANCE PROVIDERS Payer name Policy type / Coverage type Walter red alliance party ID [employer] MED[employer]ARE [employer]AGE ST 0 003 (HMO POS) Medicare [id number] ADVANCE DIRECTIVES Name Date DISCUSSED - NO DECISION MADE TREATMENT PLAN Date Name Performer [id number],B, Tony Ahmedza i [id number],B, Tony Ahmedza i [id number],S, Tony Ahmedza i [id number],S, Tony Ahmedza i [id number],S, Tony Ahmedza i [id number],S, Tony Ahmedza i [id number],S, Tony Ahmedza i [id number],S, Tony Ahmedza i [id number],S, Tony Ahmedza i [id number],S, Tony Ahmedza i [id number],S, Tony Ahmedza i [id number],S, Tony Ahmedza i [id number],S, Tony Ahmedza i [id number],B, Tony Ahmedza i [id number],S, Tony Ahmedza i [id number],S, Tony Ahmedza i [id number],B, Tony Ahmedza i Cardiology:BP contro lled continue present regimen T he following medications were removed from the medication list: Nifedipine 60 Mg Tablet Extended Release (Nifedipine) ..... Take 1 tablet by mouth once a day Her updated medication list for this problem includes: Chlorthalidone 25 Mg Tablet (Chlorthalidone) ..... 1/2 tablet by mouth once a day Lisinopril 40 Mg Tablet (Lisinopril) ..... Take 1 tablet by mouth every morning T his visit has been a part of the consistent, comprehensive, and ongoing management of the chronic medical condition(s) listed above for the patient. Bradley Roca MD Cardiology:EF 60% wi th mild MR on last echo n o SOB or palpitations at this time [facility] Cardiology:BP contro lled continue present regimen T he following medications were removed from the medication list: Nifedipine 60 Mg Tablet Extended Release (Nifedipine) ..... Take 1 tablet by mouth once a day Her updated medication list for this problem includes: Chlorthalidone 25 Mg Tablet (Chlorthalidone) ..... 1/2 tablet by mouth once a day Lisinopril 40 Mg Tablet (Lisinopril) ..... Take 1 tablet by mouth every morning [facility] Cardiology:CTA AIF w ith patent renal arteries in 2020 B P controlled will monitor [facility] Cardiology:The patie nt is using CPAP on a regular basis. The patient has been benefiting from therapy and should continue use. [facility] Cardiology:off stati n d/t myalgias S he will resume crestor every other day W ill update lipid panel in 6 weeks T he following medications were removed from the medication list: Rosuvastatin 20 Mg Tablet (Rosuvastatin) Her updated medication list for this problem includes: Rosuvastatin 20 Mg Tablet (Rosuvastatin) ..... Take 1 tablet (20 mg total) by mouth every night. [facility] Cardiology:continues to report pain in bilateral groins with ambulation supsicious for osteoarthritis W ill have her trial Tylenol and discuss with her PCP and chiropractor S he had ANTONIA that showed only mild arterial disease [facility] Telehealth: O rders: A rterial Duplex Bi-Lower EX ([id number]) Tony Contreras Telehealth Tony Contreras Telehealth Tony Contreras Telehealth: H er updated medication list for this problem includes: Nifedipine 60 Mg Tablet Extended Release (Nifedipine) ..... Take 1 tablet by mouth once a day Chlorthalidone 25 Mg Tablet (Chlorthalidone) Lisinopril 40 Mg Tablet (Lisinopril) ..... Take 1 tablet by mouth every morning [facility] Telehealth [facility] Telehealth: P rior BP: 163/80 (08/08/2023) Her updated medication list for this problem includes: Nifedipine 60 Mg Tablet Extended Release (Nifedipine) ..... Take 1 tablet by mouth once a day Chlorthalidone 25 Mg Tablet (Chlorthalidone) Lisinopril 40 Mg Tablet (Lisinopril) ..... Take 1 tablet by mouth every morning [facility] Cardiology [facility] Cardiology: Her updated medication list for this problem includes: Nifedipine 60 Mg Tablet Extended Release (Nifedipine) ..... Take 1 tablet by mouth every day Lisinopril 40 Mg Tablet (Lisinopril) ..... Take 1 tablet by mouth every morning [facility] Cardiology [facility] Cardiology: H er updated medication list for this problem includes: Nifedipine 60 Mg Tablet Extended Release (Nifedipine) ..... Take 1 tablet by mouth every day Chlorthalidone 25 Mg Tablet (Chlorthalidone) Lisinopril 40 Mg Tablet (Lisinopril) ..... Take 1 tablet by mouth every morning [facility] Cardiology [facility] Cardiology: B P today: 163/80 P rior BP: 124/64 (06/27/2022) Her updated medication list for this problem includes: Nifedipine 60 Mg Tablet Extended Release (Nifedipine) ..... Take 1 tablet by mouth every day Chlorthalidone 25 Mg Tablet (Chlorthalidone) Lisinopril 40 Mg Tablet (Lisinopril) ..... Take 1 tablet by mouth every morning [facility] Card[facility] Cardiology [facility] Cardiology [facility] Cardiology Tony Ahmedzai Cardiology Tony Ahmedzai Cardiology Tony Ahmedzai Cardiology Tony Ahmedzai Cardiology Tony Ahmedzai Cardiology Tony Ahmedzai Cardiology Tony Ahmedzai Cardiology Tony Ahmedzai Cardiology Tony Ahmedzai Cardiology Tony Ahmedzai Cardiology Tony Ahmedzai Cardiology Tony Ahmedzai Cardiology Tony Ahmedzai Cardiology Follow up Hung Acevedo Cardiology Follow up Hung Acevedo Cardiology Follow up Hung Acevedo Cardiology Follow up Hung Acevedo Cardiology Follow up Hung Acevedo Cardiology Follow up Hung Acevedo Cardiology follow up Hung Acevedo Cardiology follow up Hung Acevedo Cardiology follow up Hung Acevedo Cardiology follow up Hung Acevedo Cardiology follow up Hung Acevedo Cardiology follow up Hung Acevedo 6 month follow-up Diogenes Isaacs 6 month follow-up: H er updated medication list for this problem includes: Atenolol 50 Mg Tabs (Atenolol) ..... One tab. daily Diogenes Argueta MD 6 month follow-up: H er updated medication list for this problem includes: Nifedipine 30 Mg Tb24 (Nifedipine) ..... 1 tablet by mouth daily Atenolol 50 Mg Tabs (Atenolol) ..... One tab. daily Diogenes Argueta MD 6 month follow-up: H er updated medication list for this problem includes: Vytorin 10-40 Mg Tabs (Ezetimibe-simvastatin) ..... One tab. at bedtime Diogenes Argueta MD post hosp f/u having cp: H er updated medication list for this problem includes: Keppra 250 Mg Tabs (Levetiracetam) ..... Twice daily Diogenes Argueta MD post hosp f/u having cp Diogenes machuca MD post hosp f/u having cp: T he following medications were removed from the medication list: Aspirin 81 Mg Tabs (Aspirin) ..... One tab. daily Her updated medication list for this problem includes: Nifedipine 30 Mg Tb24 (Nifedipine) ..... Daily Atenolol 50 Mg Tabs (Atenolol) ..... One tab. daily BP today: 140/80 Prior BP: / () S tress Test: Normal resting ECG and blood pressure. Normal heart rate and blood pressure responses at 5 1/2 minutes of exercise, having achieved 88% of target heart rate. Test terminated due to SOB and fatigue. Max 0.6mm upsloping ST segment depression in the inferior leads and max 0.5mm upsloping ST segment depression in the lateral leads, not diagnositic for ischemia. The test is condiered to be negative by ECG criteria. [facility] (04/17/2008) Orders: E KG ([id number]) Diogenes Argueta MD Date Name LIPID PANEL Arterial Duplex Bi-L ower EX CT Angio Renal (abdo men) Renal Artery Duplex Arterial Duplex Bi-L ower EX CT Angio AIF (Abd, l ower extremities) Renal Artery Duplex Stress Regadenoson Complete Echo Complete Echo HISTORY OF PROCEDURES Procedure Date Procedure Name Provider Procedure Notes S tatus Complex e/m visit add on Bradley Roca MD completed EKG Bradley Roca MD completed EKG Bradley Roca MD completed EKG Bradley Roca MD completed EKG Bradley Roca MD completed EKG Diogenes Argueta MD completed
--- OUTSIDE RECORDS SUMMARY | 2024-10-24 00:40 | XMS_ITS | Referral Summary ---
Author Organization [facility] Address [address] [place] [address] Care Team Providers Care Back Tender Paper Machine Name Role Phone Unavailable Primary Care Provider Unavailabl e Allergies Active Allergy Reactions Criticality Noted Date Comments Rosuvastatin Muscle pain Medium 01/05/2020 Hydrochlorothiazide Other (See comments) Low 2019 Medications levothyroxine (SYNTHROID, LEVOTHROID) 100 mcg tablet every other day. Active NIFEDIPINE XL 30 mg 24 hr tablet daily. 11/08/2017 Active cholecalciferol (VITAMIN D-3) 2000 unit tablet Take 2,000 Units by mouth 2 (two) times a day Active omega-3 fatty acids (LOVAZA) 1 gram capsule Take 1 g by mouth 2 (two) times a day Active cloNIDine (CATAPRES) 0.1 mg tablet Take 0.1 mg by mouth as needed for high blood pressure Daily as needed when Blood Pressure is 160/90. Active ergocalciferol (VITAMIN D) 50,000 unit capsule Take 50,000 Units by mouth once a week Active fenofibrate (TRIGLIDE) 160 mg tablet Take 160 mg by mouth daily Active lisinopriL (PRINIVIL,ZESTR IL) 40 mg tablet Take 1 tablet by mouth daily Active pioglitazone (ACTOS) 30 mg tablet TAKE 1 TABLET BY MOUTH EVERY DAY 90 tablet 1 05/14/2020 Active PARoxetine (PAXIL) 30 mg tabletIndicatio ns:Moderate episode of recurrent major depressive disorder (HCC) TAKE 1 TABLET BY MOUTH EVERY DAY IN THE MORNING 90 tablet 1 11/09/2020 Active atenoloL (TENORMIN) 50 mg tabletIndicatio ns:Hypertension associated with diabetes (HCC) TAKE 1 TABLET BY MOUTH EVERY DAY 90 tablet 12/09/2020 Active Active Problems Problem Noted Date Diagnosed Date CKD (chronic kidney disease) stage 3, GFR 30-59 ml/min 06/15/2020 Hypertension, renal disease, stage 1-4 or unspecified chronic kidney disease 06/15/2020 Hypertension associated with stage 3 chronic kidney disease due to type 2 diabetes mellitus 06/15/2020 Flu vaccine need 02/11/2020 Assessment & Plan (02/11/2020 9:52 PM CDT): Updated in office BMI 32.0-32.9,adult 12/17/2019 Assessment & Plan (02/11/2020 9:51 PM CDT): Obesity is unchanged. Discussed the patient's BMI. The BMI is above average. BMI management plan is completed. BMI Follow-up includes: nutrition counseling, exercise counseling and education provided. Assessment & Plan (01/05/2020 10:49 AM CDT): Obesity is unchanged. Discussed the patient's BMI. The BMI is above average. BMI management plan is completed. BMI Follow-up includes: nutrition counseling, exercise counseling and education provided. Assessment & Plan (12/17/2019 8:31 AM CDT): Obesity is unchanged. Discussed the patient's BMI. The BMI is above average. BMI management plan is completed. BMI Follow-up includes: nutrition counseling, exercise counseling and education provided. Obesity (BMI 30-39.9) 09/23/2019 Assessment & Plan (02/11/2020 9:50 PM CDT): Obesity is unchanged. Discussed the patient's BMI. The BMI is above average. BMI management plan is completed. BMI Follow-up includes: nutrition counseling, exercise counseling and education provided. Assessment & Plan (01/05/2020 10:46 AM CDT): Obesity is unchanged. Discussed the patient's BMI. The BMI is above average. BMI management plan is completed. BMI Follow-up includes: nutrition counseling, exercise counseling and education provided. Assessment & Plan (12/17/2019 9:30 PM CDT): Obesity is unchanged. Discussed the patient's BMI. The BMI is above average. BMI management plan is completed. BMI Follow-up includes: nutrition counseling, exercise counseling and education provided. Assessment & Plan (09/23/2019 10:33 AM CDT): Obesity is unchanged. Discussed the patient's BMI. The BMI is above average. BMI management plan is completed. BMI Follow-up includes: nutrition counseling, exercise counseling and education provided. Hypertension associated with diabetes 09/23/2019 Assessment & Plan (02/11/2020 9:50 PM CDT): Bp is stable/in acceptable range for any co-morbidities. Encouraged to limit sodium intake and exercise for weight control. Continue nifedipine, lisinopril and atenolol. bp today is in a good range. Encouraged to only monitor occasional readings as she notes her readings go up when she checks multiple times. Assessment & Plan (01/05/2020 10:47 AM CDT): This is a significant, separately identifiable problem that was evaluated and managed on the same day as the wellness exam Encouraged to limit sodium intake and exercise for weight control. DASH diet inform provided. Lisinopril was just increased by Dr. Meehan. Will have her followup in 3-4 weeks and may need to adjust again. Discussed a more consistent management of her bp instead of the prn clonidine. Assessment & Plan (12/17/2019 9:30 PM CDT): Bp is in upper range for any co-morbidities. Encouraged to limit sodium intake and exercise for weight control. Monitor closely. Will hold off on adjusting her meds until her labs are back. Assessment & Plan (09/23/2019 7:44 PM CDT): Bp is stable/in acceptable range for any co-morbidities. Encouraged to limit sodium intake and exercise for weight control. Continue Lisinopril, nifedipine and atenolol. Has clonidine tablets if her bp increases over 160/90. Will monitor closely and may need adjustment. Anxiety 09/23/2019 Assessment & Plan (01/05/2020 10:49 AM CDT): See depression Assessment & Plan (12/17/2019 9:32 PM CDT): Continue paxil Assessment & Plan (09/23/2019 7:46 PM CDT): See depression. Adjust Paxil dose. Moderate episode of recurrent major depressive d isorder 09/23/2019 Assessment & Plan (02/11/2020 9:50 PM CDT): Continue Paxil 30mg. Assessment & Plan (01/05/2020 10:49 AM CDT): Pt saw improvement with increase of the paxil. Continue at 30mg. Assessment & Plan (12/17/2019 9:32 PM CDT): Continue paxil. Assessment & Plan (09/23/2019 7:46 PM CDT): Increase paxil to 30mg daily. Monitor closely Followup 4-6 weeks to see if needs adjustment/additional medicaiton. Type 2 diabetes mellitus with hyperlipidemia Assessment & Plan (01/05/2020 10:48 AM CDT): This is a significant, separately identifiable problem that was evaluated and managed on the same day as the wellness exam Encouraged patient to continue low fat/low chol diet. Continue exercise. Increase good fats in the diet. Monitor labs as needed. Cramps with daily crestor. Encouraged to try 2 times a week to see if she can tolerate. Continue with the CoQ10. Continue fenofibrate Assessment & Plan (12/17/2019 9:32 PM CDT): Encouraged patient to continue low fat/low chol diet. Continue exercise. Increase good fats in the diet. Monitor labs as needed. Pt thinks the crestor was causing cramps. Stopped the crestor, still having leg cramps. On CoQ10. Recommend taking Crestor Mon/Fri and await labs to determine if there is another cause for the leg cramps. Assessment & Plan (09/23/2019 7:45 PM CDT): Encouraged patient to continue low fat/low chol diet. Continue exercise. Increase good fats in the diet. Monitor labs as needed. Restart Crestor. Showed patient where she can get a coupon for the BRAND. Start Co-Q10 Request her last labs and may consider stopping Triglide and Lovaza and start Vascepa. Acquired hypothyroidism 09/23/2019 Assessment & Plan (01/05/2020 10:49 AM CDT): Continue levothyroxine Assessment & Plan (09/23/2019 7:45 PM CDT): Continue levothyroxine Request labs Vitamin D deficiency 09/23/2019 Assessment & Plan (01/05/2020 10:47 AM CDT): Supplement Assessment & Plan (09/23/2019 7:44 PM CDT): supplement History of seizures as a child 09/23/2019 Assessment & Plan (09/23/2019 11:17 AM CDT): Last seizure was over 20 years ago Age-related cataract of both eyes 09/23/2019 Assessment & Plan (09/23/2019 7:43 PM CDT): Has surgery planned. Has form for surgical clearance to be returned to Dr. Gann. Will request hi notes as hopefully DM eye exam is UTD ISELA (obstructive sleep apnea) 11/29/2017 Assessment & Plan (02/11/2020 9:49 PM CDT): Pt has called DME service for supplies. Assessment & Plan (01/05/2020 10:45 AM CDT): Continue with CPAP Assessment & Plan (12/17/2019 9:12 AM CDT): Thinks her mask is not fitting as well. Encouraged to follow with DME provider to get a new mask. Assessment & Plan (09/23/2019 7:43 PM CDT): Sleep study at [facility] to make part of her record. Has CPAP and supplies Chronic fatigue 11/29/2017 Resolved Problems Problem Noted Date Diagnosed Date Resolved Date Annual physical exam 01/04/2020 020 Assessment & Plan (01/05/2020 10:49 AM CDT): Encouraged healthy lifestyle, good nutrition and exercise. Encouraged Calcium and Vitamin D and weight bearing exercise for bone health. Reviewed immunizations Reviewed age appropirate screenings. BMI 33.0-33.9,adult 09/23/2019 12/17/19 20 Assessment & Plan (09/23/2019 10:32 AM CDT): Obesity is unchanged. Discussed the patient's BMI. The BMI is above average. BMI management plan is completed. BMI Follow-up includes: nutrition counseling, exercise counseling and education provided. Immunizations Immunization Administration Dates Next Due Influenza, Quadrivalent, Spl it, Preservative Free, Intramuscular 02/11/2020,02/06/2018,03/06/2017,05/11 Influenza, Trivalent, IM (MDV) 04/28/2014 Influenza, Unspecified 02/04/2019(Deferred: Tamar ent Refused) Social History Tobacco Use Types Packs/Day Years Used Date Smoking Tobacco: Never Smokeless Tobacco: Never Alcohol Use Standard Drinks/Week Comments Never 0 (1 standard drink = 0.6 oz pur e alcohol) AUDIT-C Answer Date Recorded Q1: How often do you have a drink containing alc ohol? 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 Not on file Not on nasrin e Last Filed Vital Signs Vital Sign Reading Time Taken Comments Blood Pressure 138/60 02/11/2020 9:30 AM CDT Pulse 56 02/11/2020 9:30 AM CDT Temperature 36 C (96.8 F) 02/11/2020 9:30 AM CDT Respiratory Rate 16 01/05/2020 9:55 AM CDT Oxygen Saturation 96% 02/11/2020 9:30 AM CDT Inhaled Oxygen Concentration - - Weight 84.1 kg (185 lb 8 oz) 02/11/2020 9:30 AM CDT Height 160 cm (5' 3) 02/11/2020 9:30 AM CDT Body Mass Index 32.86 02/11/2020 9:30 AM CDT Plan of Treatment Not on file Procedures Procedure Name Priority Date/Time Associated Diagnosis Comments COMPREHENSIVE METABOLIC PANEL Routine 12/17/2019 9:25 AM CDT Hypertension associated with diabetes (HCC) HEMOGLOBIN A1C Routine 12/17/2019 9:25 AM CDT Hypertension associated with diabetes (HCC) LIPID PANEL Routine 12/17/2019 9:25 AM CDT COLONOSCOPY Routine 04/11/2019 from Last 3 Months or Most Recently Relevant to Health Maintenance Results * (ABNORMAL) Hemoglobin A1c (12/17/2019 9:25 AM CDT) Hgb A1C 6.0(H) <5.7 % of total Hgb [facility] Comment: For someone without known diabetes, a hemoglobin A1c value between 5.7% and 6.4% is consistent with prediabetes and should be confirmed with a follow-up test. For someone with known diabetes, a value <7% indicates that their diabetes is well controlled. A1c targets should be individualized based on duration of diabetes, age, comorbid conditions, and other considerations. This assay result is consistent with an increased risk of diabetes. Currently, no consensus exists regarding use of hemoglobin A1c for diagnosis of diabetes for children. Your request to have a duplicate copy faxed has been acknowledged. Queued to: [id number] Blood specimen (specimen) 12/17/2019 9:25 AM CDT 12/17/2019 9:27 AM CDT Narrative [facility] - 12/18/2019 5:36 AM CDT FASTING:YES PATIENT UNABLE TO VOID; ADVISED TO RETURN FOR COLLECTION. FASTING: YES [facility] BLOOD ORDERABLES Final Result [facility] [employer] [address] [facility] [place] [id number] * (ABNORMAL) Lipid panel (12/17/2019 9:25 AM CDT) Pathologist [facility] Cholesterol 253(H) <200 mg/dL [facility] HDL 51 > OR = 50 mg/dL [facility] Triglycerides 194(H) <150 mg/dL [facility] LDL 167(H) mg/dL (calc) [facility] Comment: Reference range: <100 Desirable range <100 mg/dL for primary prevention; <70 mg/dL for patients with CHD or diabetic patients with > or = 2 CHD risk factors. LDL-C is now calculated using the Niles-Elias calculation, which is a validated novel method providing better accuracy than the Friedewald equation in the estimation of LDL-C. Niles SS et al. BELL. 2013;310(19): 9989-6943 (http://education.[employer]/faq/LNF541) Chol/HDL ratio 5.0(H) <5.0 (calc) [facility] Non-HDL, (LDL+VLDL) 202(H) <130 mg/dL (calc) [facility] Comment: For patients with diabetes plus 1 major ASCVD risk factor, treating to a non-HDL-C goal of <100 mg/dL (LDL-C of <70 mg/dL) is considered a therapeutic option. 12/17/2019 9:25 AM CDT 12/17/2019 9:27 AM CDT Narrative [facility] - 12/18/2019 5:36 AM CDT FASTING:YES PATIENT UNABLE TO VOID; ADVISED TO RETURN FOR COLLECTION. FASTING: YES [facility] BLOOD ORDERABLES Final Result [facility] [address] [place] [id number] * (ABNORMAL) Comprehensive metabolic panel (12/17/2019 9:25 AM CDT) Glucose 109(H) 65 - 99 mg/dL [facility] Comment: Fasting reference interval For someone without known diabetes, a glucose value between 100 and 125 mg/dL is consistent with prediabetes and should be confirmed with a follow-up test. BUN 24 7 - 25 mg/dL [facility] Creatinine 1.32(H) 0.50 - 0.99 mg/dL [facility] Comment: For patients >49 years of age, the reference limit for Creatinine is approximately 13% higher for people identified as -Italian. eGFR NON-AFR. LAO 43(L) > OR = 60 mL/min/1. 73m2 [facility] EGFR 50(L) > OR = 60 mL/min/1. 73m2 [facility] BUN/creat ratio 18 6 - 22 (calc) [facility] Sodium 141 135 - 146 mmol/L [facility] Potassium, pl 4.6 3.5 - 5.3 mmol/L [facility] Chloride 105 98 - 110 mmol/L [facility] CO2 27 20 - 32 mmol/L [facility] Calcium 9.7 8.6 - 10.4 mg/dL [facility] Protein, sr 6.7 6.1 - 8.1 g/dL [facility] Albumin 4.2 3.6 - 5.1 g/dL [facility] GLOBULIN 2.5 1.9 - 3.7 g/dL (calc) [facility] Alb/glob ratio 1.7 1.0 - 2.5 (calc) [facility] Bilirubin, total 0.3 0.2 - 1.2 mg/dL [facility] Alk phos 32(L) 37 - 153 U/L [facility] AST 32 10 - 35 U/L [facility] ALT (SGPT) 38(H) 6 - 29 U/L [facility] Blood specimen (specimen) 12/17/2019 9:25 AM CDT 12/17/2019 9:27 AM CDT Narrative [facility] - 12/18/2019 5:36 AM CDT FASTING:YES PATIENT UNABLE TO VOID; ADVISED TO RETURN FOR COLLECTION. FASTING: YES [facility]OD ORDER[facility]LES Final Result [facility] [address] [place] [id number] * Colonoscopy (04/11/2019) Anatomical Region Laterality Modality Other Historical Provider ENDOSCOPY PROCEDURES Aga l Result from Last 3 Months or Most Recently Relevant to Health Maintenance Insurance [facility]
--- OUTSIDE RECORDS SUMMARY | 2024-10-24 00:40 | XMS_ITS | Clinical Summary ---
Author Organization [facility] Facility Address [address] [place] [address] Care Team Providers Care Tearer Name Role Phone Sabine Holt MD Primary Care Provider [phone] Allergies Active Allergy Reactions Criticality Noted Date Comments Erythromycin High 04/20/2008 Hydrochlorothiazide Other (see comments) Low 2019 Metformin Other (see comments) 03/08/2021 Rosuvastatin Other (see comments) Medium 01/05/2020 Medications lisinopril 40 MG tablet lisinopril 40 mg tablet TAKE 1 TABLET BY MOUTH EVERY DAY IN THE MORNING 0 Active melatonin 3 MG tablet melatonin 3 mg tablet Take 1 tablet as needed by oral route at bedtime. 9 Active omega-3 (FISH OIL) 1000 MG capsule omega-3 acid ethyl esters 1 gram capsule TAKE ONE CAPSULE BY MOUTH TWICE A DAY BEFORE MEALS Active levothyroxine (SYNTHROID, LEVOTHROID) 100 MCG tablet Take 100 mcg by mouth 1 Active PARoxetine (PAXIL) 30 MG tablet Take 1 tablet by mouth 1 (one) time each day in the morning 1 Active gabapentin (NEURONTIN) 100 MG capsule TAKE 2 CAPSULES (200 MG TOTAL) BY MOUTH EVERY NIGHT 120 capsule 1 2 Active chlorthalidone 25 MG tablet TAKE 1 TABLET BY MOUTH ONCE DAILY IN THE MORNING 90 tablet 3 4 Active ergocalciferol 1.25 MG (48809 UT) capsule TAKE 1 CAPSULE (50,000 UNITS TOTAL) BY MOUTH ONCE WEEKLY 12 capsule 1 5 Active rosuvastatin (CRESTOR) 20 MG tablet Take 1 tablet (20 mg total) by mouth every night 90 tablet 1 5 Active Active Problems Problem Noted Date Diagnosed Date Stage 3a chronic kidney disease 03/03/2021 Type 2 diabetes mellitus wit h diabetic chronic kidney disease 03/03/2021 Pure hypercholesterolemia, not otherwise specifi ed 03/03/2021 Other specified hypothyroidism 03/03/2021 Hypertension 03/03/2021 Encounters Date Type Department Care Team Description 09/23/2024 1:00 PM CDT Office Visit [place] [facility], [facility] [address] [facility] [address] [place] [id number] Berto Lin DO Stage 3b chronic kidney disease (HCC) (Primary Dx); Persistent proteinuria; Obstructive sleep apnea syndrome; Hypertensive chronic kidney disease; Type 2 diabetes mellitus with diabetic chronic kidney disease (HCC); Pure hypercholesterolemia, not otherwise specified; Other specified hypothyroidism 09/22/2024 Documentation Only [facility], [address] [address] Berto Lin DO 07/26/2024 Refill [facility], [address] [address] Denisse Choudhary CMA 07/24/2024 Refill [facility], [address] [address] Ana Bettencourt from Last 3 Months Family History Medical History Relation Comments Hypertension Father Heart disease Mother Relation Status Comments Father Mother Social History Tobacco Use Types Packs/Day Years Used Date Smoking Tobacco: Never Smokeless Tobacco: Never Alcohol Use Standard Drinks/Week Comments Never 0 (1 standard drink = 0.6 oz pur e alcohol) Comments Unknown Sex and Gender Information Value Date Recorded Sex Assigned at Not on file Legal Sex Female 2:53 PM EDT Gender Identity Not on file Sexual Orientation Not on file Last Filed Vital Signs Vital Sign Reading Time Taken Comments Blood Pressure 126/60 09/23/2024 1:16 PM CDT Pulse 72 09/23/2024 1:16 PM CDT Temperature 36.7 C (98 F) 05/20/2024 1:38 PM JUKEBOX CHECKER Respiratory Rate 16 09/23/2024 1:16 PM CDT Oxygen Saturation 97% 09/23/2024 1:16 PM CDT Inhaled Oxygen Concentration - - Weight 70.8 kg (156 lb) 09/23/2024 1:16 PM CDT Height 162.6 cm (5' 4) 09/23/2024 1:16 PM CDT Body Mass Index 26.78 09/23/2024 1:16 PM CDT Plan of Treatment Upcoming Encounters Date Type Department Care Team (Late st Contact Info) Description 03/31/2025 1:00 PM JUKEBOX CHECKER Office Visit [facility], [facility] [address] [facility] [address] [place] [address] Berto Lin DO [address] [facility] [address] [place] [address] Health Maintenance Due Date Last Done Comments Breast Cancer Screening 1955 Pneumococcal Vaccine: 50+ Ye ars (1 of 2 - PCV) 1976 Colorectal Cancer Screening: Annual FOBT 2006 Colorectal Cancer Screening: Sigmoidoscopy 2006 Hepatitis B Vaccine (1 of 3 - Risk 3-dose series) 2017 Diabetes: Hemoglobin A1C 09/30/2020 12/17/2019 Diabetes: Ophthalmology Exam 09/30/2020 Diabetes: Pedal Pulse Checked 09/30/2020 Diabetes: Sensory Foot Exam 09/30/2020 Diabetes: Visual Foot Exam 09/30/2020 Influenza Vaccine (Season Ended) 2025 02/28/2022, 02/11/2020, 02/10/2020, Additional history exists Colorectal Cancer Screening: Colonoscopy 04/11/2029 04/11/2019 Insurance [facility] Medicare Care Teams Tearer Relationship Specialty Start Date End Date Sabine Holt MD [address] [place] [address], [address] [place] [address] PCP - General 09/14/20
--- OUTSIDE RECORDS SUMMARY | 2024-10-24 00:40 | XMS_ITS | Patient Health Record ---
Author Organization [facility] Address [address] [address] Care Team Providers Care Senior Storage Administrator Name Role Phone ZoranBeulah Primary Care Provider [phone] Cordelia Juarez Unavailable [phone] Migration, Provider Unavailable Unavailable Allergies Allergen (clinical drug ingredient) Drug/Non Drug Allergy documented on EMR Reaction Allergy Type Onset Date Status metformin metFORMIN Unknown Drug Allergy Active hydroCHLOROthiazide Unknown Drug Allergy Active Results Component Value Reference Range Notes COMPREHENSIVE METABOLIC PANE L Reviewed date:01/24/2024 08:42:20 AM Interpretation: Performing Lab:DONNA, [facility], [address], [place], [address] Anmol Orourke Notes/Report: VITAMIN D, 25-HYDROXY, LC/MS /MS Reviewed date:01/17/2024 11:44:15 AM Interpretation: Performing Lab:KS, [facility], [address], [place], [address] Anmol Orourke MD Notes/Report: ACTH, PLASMA Reviewed date:01/22/2024 08:31:34 AM Interpretation: Performing Lab:CHRIS, [facility], [address], [place], [address] Festus Casanova M.D.,PhD Notes/Report: RONNIE IFA SCREEN W/REFL TO TIT ER AND PATTERN, IFA Reviewed date:01/18/2024 02:15:42 PM Interpretation: Performing Lab:KS, [facility], [address], [place], [address] Anmol Orourke MD Notes/Report: T3, FREE Reviewed date:01/17/2024 11:44:15 AM Interpretation: Performing Lab:[facility], [address], [place], [place], [address] Anmol Orourke MD Notes/Report: DHEA SULFATE Reviewed date:01/17/2024 11:44:15 AM Interpretation: Performing Lab:[facility], [address], [place], [address] Anmol Orourke MD Notes/Report: FERRITIN Reviewed date:01/17/2024 11:44:15 AM Interpretation: Performing Lab:[facility], [address], [place], [place], [address] Anmol Orourke MD Notes/Report: HEMOGLOBIN A1c Reviewed date:01/17/2024 11:44:15 AM Interpretation: Performing Lab:[facility], [address] [place], [address] Anmol Orourke Notes/Report: INSULIN Reviewed date:01/22/2024 08:31:34 AM Interpretation: Performing Lab:[facility], [address], [place], [address] Anmol Orourke MD Notes/Report: CBC (INCLUDES DIFF/PLT) Reviewed date:01/17/2024 11:44:15 AM Interpretation: Performing Lab:[facility] [place], [address] [place], [address] Anmol Orourke Notes/Report: VITAMIN B12/FOLATE, SERUM PA DAX Reviewed date:01/17/2024 11:44:15 AM Interpretation: Performing Lab:[facility], [address], [place], [address] Anmol Orourke MD Notes/Report: IRON AND TOTAL IRON BINDING CAPACITY Reviewed date:01/17/2024 11:44:15 AM Interpretation: Performing Lab:[facility], [address], [place], [address] Anmol Orourke MD Notes/Report: LIPID PANEL Reviewed date:01/17/2024 11:44:15 AM Interpretation: Performing Lab:SL, [facility], [address] [place], [address] JoannMy Orourke Notes/Report: T4, FREE Reviewed date:01/17/2024 11:44:15 AM Interpretation: Performing Lab:DONNA, [facility], [address] [place], [address] JoannMy Orourke Notes/Report: TSH Reviewed date:01/17/2024 11:44:15 AM Interpretation: Performing Lab:SL, [facility], [facility] [place], [address] JoannMy Orourke Notes/Report: THYROID PEROXIDASE ANTIBODIE S Reviewed date:01/18/2024 02:15:42 PM Interpretation: Performing Lab:, [facility], [address] [place] [address], [address] Santos Sanchez Notes/Report: THYROID PEROXIDASE ANTIBODIES <1 <9 IU/mL Reason For Referral No Information Medications Medication SIG (Take, Route, Frequency, Duration) Notes Start Date End Date Status Spironolactone 25 MG for 90 Days Active Vitamin D (Ergocalciferol) 1.25 MG (55254 UT) TAKE 1 CAPSULE (50,000 UNITS TOTAL) BY MOUTH ONCE WEEKLY for 84 Days Active Unithroid 100 MCG (0.1 MG) TAKE 1 TABLET BY MOUTH EVERY DAY IN THE MORNING for 90 DAYS *Please review and pick correct strength-formulati on from [employer] options. If intended option is not shown, discontinue and re-order from Quick Search* Active PARoxetine HCl 30 MG 1 tab(s) orally once a day for 30 days 01/11/2024 Active Farxiga 5 MG 1 tab(s) orally once a day for 90 days 01/31/2024 Active Melatonin 5 MG 1 tab(s) orally once a day (at bedtime) Active Chlorthalidone 25 MG for 90 Days Active Vascepa 1 GM TAKE 2 CAPSULES BY MOUTH TWICE A DAY for 30 Days Active Problems Problem Type SNOMED Code ICD Code Onset Dates Problem Status W/U Status Risk Notes Problem Vitamin D deficiency (69930851) Vitamin D deficiency, unspecified (E55.9) Active confirmed Problem Hypothyroidism (24752395) Hypothyroidism, unspecified (E03.9) Active confirmed Problem Obstructive sleep apnea syndrome (disorder) (03974357) Obstructive sleep apnea (adult) (pediatric) (G47.33) Active confirmed Problem Pure hyperglyceridemia (746523423) Pure hyperglyceridemia (E78.1) Active confirmed Problem Hypercalcemia (68076044) Hypercalcemia (E83.52) Active confirmed Vital Signs Heart Rate 90 /min 01/31/2024 Blood pressure diastolic 72 mm Hg 01/31/2024 Height 64 in 01/31/2024 Blood pressure systolic 100 mm Hg 01/31/2024 Weight 160 lbs 01/31/2024 BMI 27.46 kg/m2 01/31/2024 Encounters Encounter Location Date Provider Diagnosis [address] [address] 03/22/2024 Provider Migration Prediabetes R73.03 [facility]- Dr. Elizalde [address] [place] [address] 01/11/2024 Cordelia Juarez Hypothyroidism, unspecified E03.9 ; Pure hyperglyceridemia E78.1 ; Prediabetes R73.03 ; Other fatigue R53.83 ; Obstructive sleep apnea (adult) (pediatric) G47.33 ; Anemia, unspecified D64.9 and Vitamin D deficiency, unspecified E55.9 [facility] [address] [place] [address] 01/17/2024 [facility] - Beulah Meehan [address] [place] [address] 01/31/2024 Beulah Meehan Hypothyroidism, unspecified E03.9 ; Disorder of kidney and ureter, unspecified N28.9 ; Prediabetes R73.03 and Hypercalcemia E83.52 [facility]- Dr. Elizalde [address] [place] [address] 03/19/2024 Beulah Meehan Assessments Encounter Date Diagnosis (ICD Code) Assessment Notes Treatment Notes Treatment Clinical Notes Section Notes 01/11/2024 Hypothyroidism, unspecified (ICD-10 - E03.9) -Continue Unithroid 100mcg for now. Will obtain TFT and determine if we need to change tx. 01/11/2024 Pure hyperglyceridemia (ICD-10 - E78.1) -Continue with rx Fish Oil for elevated triglycerides. 01/31/2024 Hypothyroidism, unspecified (ICD-10 - E03.9) TSH and FT4 in range- continue unithroid 100 mcg daily. 01/31/2024 Disorder of kidney and ureter, unspecified (ICD-10 - N28.9) She is following nephrology and has follow up on 02/11. Recommended she trial on low dose farxiga 5 mg daily- some patients tolerate this better than jardiance. Recommended SPEP/UPEP and kappa lambda protein workup to screen for MM or gammopathies. 03/22/2024 Prediabetes (ICD-10 - R73.03) 01/11/2024 Prediabetes (ICD-10 - R73.03) -Will obtain screening labs. Pt unable to tolerate metformin as she reports it makes her shakey. 01/31/2024 Prediabetes (ICD-10 - R73.03) a1c of 6.2%- trial on low dose farxiga 5 mg daily. Discussed carb counting and how to read food labels. Recommended patient to utilize the diabetesAnelletti [employer]com from the ADA website to help with food preparation as this presents ideal carb content per meal and will make carb counting easier for patient. Recommended he/she incorporate natural insulin sensitizers such as pears, apples, cinnamon, anuradha and sweet potatoes to help mobilize his/her endogenous insulin. Recommended up to 150 minutes of moderate level activity /exercise per week. 01/11/2024 Other fatigue (ICD-10 - R53.83) 01/31/2024 Hypercalcemia (ICD-10 - E83.52) Send for PTH level along with SPEP/UPEP and kappa/lambda protein to check for secondary causes of hypercalcemia. 01/11/2024 Obstructive sleep apnea (adult) (pediatric) (ICD-10 - G47.33) 01/11/2024 Anemia, unspecified (ICD-10 - D64.9) 01/11/2024 Vitamin D deficiency, unspecified (ICD-10 - E55.9) 01/11/2024 Other 1. Hyperthyroidism - Continue Unithroid 100 mcg daily. - Order new labs to check TSH and free T4 levels. - Consider adding Liothyronine (T3) based on lab results. Plan: Schedule tele follow-up after lab results are available. 2. Fatigue and Sleep Apnea - Encourage continued use of sleep apnea mask. - Check B12 levels in new labs to assess for deficiency. - Consider Vivek's thyroiditis screening based on family history and symptoms. 3. Pre-diabetes - Repeat A1c test in new labs. - Monitor blood glucose levels and adjust treatment as needed. Plan: Encourage lifestyle modifications, including diet and exercise. 4. Anemia - Repeat hemoglobin, hematocrit, and iron studies in new labs. - Investigate potential causes of anemia, including iron deficiency. Plan: Consider referral to a echo vasc tech if anemia persists or worsens. 5. Hypertension - Monitor blood pressure and adjust medications as needed. - Encourage lifestyle modifications, including diet and exercise. 6. Gastrointestinal Concerns - Continue colonoscopy surveillance as per previous schedule. Plan: Monitor for any changes in bowel habits or blood in stool. 7. Education on Vivek's Thyroiditis - Explain the autoimmune nature of the condition and its potential impact on thyroid function. Plan: Discuss the connection between diet and thyroid health, particularly in relation to inflammatory foods. 8. Lab Work - Schedule labs for Sunday morning, including TSH, free T4, A1c, B12, hemoglobin, hematocrit, and iron studies. Plan: Plan tele follow-up after lab results are available. 9. Scheduling and Coordination Plan: Address any scheduling conflicts or communication issues with the patient and other providers as needed. -[facility]: CBC, CMP, INUSLIN, IRON/IBC, FERRITIN, DHEA-S, ACTH, LIPID PANEL, FREE T3, FREE T4, TSH, TPO, B12, VIT D 01/31/2024 Other Spent 25 minutes preparing to see the patient (ex review of tests/chart), obtaining and / or reviewing separately obtained history, performing a medically appropriate examination and/or evaluation, counseling and educating the patient/family/manager critical care, ordering medications, tests, or procedures, referring and communicating with other health continuum of care manager, documenting clinical information in the electronic or other health record, independently interpreting results and communicating results to the patient/family/manager critical care and care coordinating patient plan. Patient alert and oriented x 4 and aware of discussion noted above and in agreeance to plan in management of hypothyroidism, prediabetes and finding of hypercalcemia in setting of CKD. Due to the nature of telemedicine, the ability to do physical assessment was limited to what can be accomplished by patient directed telehealth visit based on instruction. Those limits are understood by the patient and myself. Impression is based on history, available information, and physical findings accomplished with telehealth visit. Chronic disease/problem list/ medication list reviewed and updated where indicated. Discussed diagnosis, plan including risks, benefits, and options of treatment. Advised to call for new, worsening, or persistent symptoms. Level of patient risk was of moderate complexity due to the documented nature of presentation, the information assessment required and the nature of the development of an evaluation and treatment plan as documented. PMH, FHx, SHx, Surgical Hx, Quality management review carried out and addressed as documented today as part of this visit. Medication list was reviewed and adjusted as indicated. Medication requiring a refill was addressed. Risk and benefits of any new medications were discussed and all questions were answered. Plan Of Treatment No Information Insurance Providers Payer Name Payer Address Payer Phone Subscriber Number Group Number Insured Name Patient Relationship to Insured Coverage Start Date Coverage End Date [facility] [address] [place] [address] [id number] YONATAN ENCINAS Self - patient is the insured Medical (General) History Medical History History ICD Code Hypothyroidism, unspecified E03.9 prediabetes ARF/on CKD Surgical History Surgery Date(Month/Year) hysterectomy appendectomy
--- OUTSIDE RECORDS SUMMARY | 2024-10-24 00:40 | XMS_ITS | Clinical Summary ---
Author Organization [facility] Address [address] [place] [address] Care Team Providers Care Atm Mechanic Name Role Phone Sabnie Holt MD Primary Care Provider Source Comments [facility],non-owned Affiliates and Associated Physician Practices is amultiple site organization consisting of ambulatory clinics and hospital sitesin [place], [place], [place] and [place]. This disclosure is being madepursuant to the Care Everywhere program and may not contain all information available regarding this patient. Last updated 18.[facility] Allergies Active Allergy Reactions Criticality Noted Date Comments Erythromycin Other High 04/20/2008 Hydrochlorothiazide Other Low 09/23/2019 Metformin Other 03/08/2021 Medications * Be aware that medications may not be up to date on this document. Alwaysverify current medications with the patient. levothyroxine (SYNTHROID) 100 MCG tablet Take 1 (one) tablet by mouth daily before breakfast Brand name Active albuterol HFA (Proventil; Ventolin; Proair) 108 (90 Base) MCG/ACT inhaler Inhale 1 (one) puff by mouth as needed for Shortness of Breath or Wheezing 3 Active ammonium lactate (Lac-Hydrin) 12 % lotion once daily as needed for Dry Skin Active chlorthalidone (Hygroton) 25 MG tablet Take 1 (one) tablet by mouth every morning 3 Active coenzyme Q10 100 MG capsule 100 (one hundred) mg once daily Active fluticasone propionate (Flonase) 50 MCG/ACT nasal spray SPRAY 1 SPRAY INTO EACH NOSTRIL DAILY NEEDED FOR 30 DAYS 3 Active Vascepa 1 g capsule TAKE 2 CAPSULES BY MOUTH TWICE A DAY FOR 90 DAYS 3 Active lisinopril (Prinivil; Zestril) 40 MG tablet Take 1 (one) tablet by mouth every morning 3 Active loratadine (Claritin) 10 MG tablet Take 1 (one) tablet by mouth once daily as needed 3 Active melatonin ([employer]S Melatonin) 3 MG tablet Take 1 (one) tablet by mouth nightly as needed 1 Active vitamin D, ergocalciferol, (Drisdol) 1.25 MG (07086 UT) capsule Take 1 (one) capsule by mouth every 7 days 3 Active PARoxetine (Paxil) 30 MG tablet Take 1 (one) tablet by mouth every morning 3 Active NIFEdipine CR 24hr (Adalat CC) 30 MG tablet Take 1 (one) tablet by mouth once daily Active spironolactone (Aldactone) 25 MG tablet Take 1 (one) tablet by mouth once daily 4 Active Active Problems Problem Noted Date Diagnosed Date Anemia 11/15/2023 Leukopenia 10/25/2023 Heart murmur 10/16/2022 Pure hypercholesterolemia 09/22/20222022 Allergic rhinitis 09/11/2022 09/22/2022 Dyslipidemia 07/11/2022 09/22/2022 Swelling of structure of right eye 03/02/2022 09/22/2022 Stage 3a chronic kidney disease 03/03/2021 09/22/2022 Degeneration of intervertebral disc of lumbar re gion 09/07/2020 09/22/2022 Abnormal glucose level 08/10/2020 Abdominal pain 08/10/2020 Disorder of bursae of shoulder region 08/10/2020 Enthesopathy of hip region 08/10/2020 Irritable bowel syndrome 08/10/2020 Pain of left lower extremity 08/10/2020 Right flank pain 08/10/2020 Stricture of artery 08/10/2020 09/22/2022 Prediabetes 07/13/2020 09/22/2022 Shortness of breath 07/13/2020 09/22/2022 Dry skin dermatitis 06/24/2020 Hypertension, renal disease, stage 1-4 or unspecified chronic kidney disease 06/15/2020 Age-related cataract of both eyes 09/23/2019 Overview (08/10/2020): Last Assessment & Plan: Has surgery planned. Has form for surgical clearance to be returned to Dr. Gann. Will request hi notes as hopefully DM eye exam is UTD Anxiety 09/23/2019 Overview (08/10/2020): Last Assessment & Plan: See depression Type 2 diabetes mellitus with hyperlipidemia Overview (08/10/2020): Last Assessment & Plan: This is a significant, separately identifiable problem that was evaluated and managed on the same day as the wellness exam Encouraged patient to continue low fat/low chol diet. Continue exercise. Increase good fats in the diet. Monitor labs as needed. Cramps with daily crestor. Encouraged to try 2 times a week to see if she can tolerate. Continue with the CoQ10. Continue fenofibrate Moderate episode of recurrent major depressive d isorder 09/23/2019 Overview (08/10/2020): Last Assessment & Plan: Continue Paxil 30mg. Vitamin D deficiency 09/23/2019 Overview (08/10/2020): Last Assessment & Plan: Supplement Insertional Achilles tendinopathy 02/11/2019 09/22/2022 Essential hypertension 04/04/2018 Metabolic dysfunction-associ ated steatotic liver disease (MASLD) 04/04/2018 Overview (11/27/2023): hepatitis panel was non reactive 10/28/20 Fibroscan CAP 393, LSM 4.1 kPa 11/27/23 Fibroscan CAP 323, LSM 3.9 kPa Other hyperlipidemia 04/04/2018 ISELA (obstructive sleep apnea) 11/29/2017 Multiple joint pain 09/12/2016 Acquired hypothyroidism 04/20/2008 Overview (08/10/2020): Last Assessment & Plan: Continue levothyroxine Mitral valve prolapse 04/20/2008 Generalized anxiety disorder 04/20/2008 Family History Medical History Relation Name Comments CAD (Coronary Artery Disease) Father CAD (Coronary Artery Disease) Mother Cancer - Pancreatic Sister Relation Name Status Comments Father Mother Sister Social History Tobacco Use Types Packs/Day Years Used Date Smoking Tobacco: Never Smokeless Tobacco: Never Alcohol Use Standard Drinks/Week Comments No 0 (1 standard drink = 0.6 oz pur e alcohol) Comments No Sex and Gender Information Value Date Recorded Sex Assigned at Not on file Legal Sex 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 Gender Identity Not on file Sexual Orientation Not on file Last Filed Vital Signs Vital Sign Reading Time Taken Comments Blood Pressure 130/59 11/27/2023 3:00 PM CDT Pulse 77 11/27/2023 3:00 PM CDT Temperature 36.6 C (97.8 F) 11/27/2023 3:00 PM CDT Respiratory Rate 18 09/22/2022 2:40 PM CDT Oxygen Saturation 98% 11/27/2023 3:00 PM CDT Inhaled Oxygen Concentration - - Weight 74.4 kg (164 lb) 11/27/2023 3:00 PM CDT Height 162.6 cm (5' 4) 11/27/2023 3:00 PM CDT Body Mass Index 28.15 11/27/2023 3:00 PM CDT Plan of Treatment Upcoming Encounters Date Type Department Care Team (Late st Contact Info) Description 11/28/2024 2:30 PM CDT Procedure visit [facility] [address] [place] [id number] 11/28/2024 3:00 PM CDT Office Visit [facility] [address] [place] [address] Glenna Mercado, HIGHWAY TRAFFIC CONTROL TECHNICIAN-LAB COURIER [address] [address] Health Maintenance Due Date Last Done Comments BONE DENSITY TESTING 1957 COLOGUARD (AGES 45-75) - COLON CA SCREENING 1957 CT COLONOGRAPHY - COLON CA SCREENING 1957 FIT - COLON CA SCREENING 1957 FLEX SIG - COLON CA SCREENING 1957 MAMMOGRAM 1957 HEPATITIS C SCREENING 05/25/1975 DTAP/TDAP/TD VACCINES (1 - Tdap) 1976 PNEUMOCOCCAL VACCINE 50+ (1 of 2 - PCV) 1976 DIABETES-STATIN 1997 ZOSTER VACCINE (1 of 2) 2007 DIABETES RETINOPATHY SCREENING 08/10/2020 DIABETES-FOOT EXAM WITH MONOFILAMENT 08/10/2020 DIABETES-HGB A1C 08/10/2020 12/17/2019 DIABETES-SERUM CREATININE 06/08/2021 06/08/2020, 02/2019 COVID-19 VACCINE ( season) 2024 08/06/2020, 07/19/2020 DEPRESSION SCREENING 05/07/2024 DIABETES - URINE PROTEIN SCREENING 05/07/2024 MEDICARE AWV CALENDAR YEAR 2024 INFLUENZA VACCINE (Season Ended) 2025 02/28/2022, 02/11/2020, 02/10/2020, Additional history exists COLON MONITORING 04/11/2029 04/11/2019 COLONOSCOPY - COLON CA SCREENING 04/11/2029 04/11/2019 Colorectal Cancer Screening 04/11/2029 Respiratory Syncytial Virus (RSV) Vaccine Pt: or over 60 yrs (1 - 1-dose 75+ series) 2032 HEPATITIS B VACCINE Aged Out No longe r eligible based on patient's age to complete this topic HIB VACCINE Aged Out No longer eligi ble based on patient's age to complete this topic HPV VACCINE Aged Out No longer eligi ble based on patient's age to complete this topic MENINGOCOCCAL (Group B) VACCINE SHARED DECISION-MAKING Aged Out No longer eligible based on patient's age to complete this topic MENINGOCOCCAL GROUPS A/C/Y/W VACCINE Aged Out No longer eligible based on patient's age to complete this topic Goals Goal Patient Goal Type Associated Problems Recent Progress Patient-Stated? Author Medication Management General On track( 024 3:40 PM CDT) Chata Sinclair, RN Note: Expected end date: ongoing Interventions: Take all medications as prescribed Procedures Procedure Name Priority Date/Time Associated Diagnosis Comments COMP MET PANEL (EXTERNAL RESULT ENTRY) Routine 06/08/2020 from Last 3 Months or Most Recently Relevant to Health Maintenance Results * (ABNORMAL) COMP MET PANEL (EXTERNAL RESULT ENTRY) (06/08/2020) Glucose (EXTERNAL) 95 70 - 99 mg/dL Sodium (EXTERNAL RESULT) 138 137 - 145 mmol/L Potassium (EXTERNAL RESULT) 4.3 3.5 - 5.1 mmol/L Chloride (EXTERNAL RESULT) 104 98 - 107 mmol/L CO2 (EXTERNAL) 28 22 - 30 mmol/L Calcium (EXTERNAL RESULT) 10 8.4 - 10.2 mg/dL Anion Gap (EXTERNAL RESULT) 10.3(A) 14 - 22 mmol/L BUN (EXTERNAL RESULT) 21(A) 8 - 19 mg/dL Creatinine (EXTERNAL RESULT) 1.20 0.66 - 1.25 mg/dl Alkaline Phosphatase (EXTERNAL RESULT) 34(A) 38 - 126 U/L ALT (EXTERNAL RESULT) 42(A) 0 - 35 U/L AST (EXTERNAL RESULT) 43(A) 15 - 37 U/L Protein Total (EXTERNAL RESULT) 7 6.3 - 8.2 gm/dL Albumin (EXTERNAL RESULT) 4.4 3.0 - 4.4 gm/dL Bilirubin Total (EXTERNAL RESULT) 0.40 0.20 - 1.30 mg/dL eGFR MDRD (EXTERNAL RESULT) 45 mL/min/1.7 3m2 eGFR (EXTERNAL) Blood BLOOD SPECIMEN / Unknown 06/08/2020 Historical Provider LAB - CHEMISTRY ORDERABLE S Final Result from Last 3 Months or Most Recently Relevant to Health Maintenance Insurance [id number] MANAGED MEDICARE ADV Prateek SANTOS [address] MANAGED MEDICARE ADV Care Teams Atm Mechanic Relationship Specialty Start Date End Date Sabine Holt MD [address] [facility] [address] [place] [address] PCP - General 04/04/18
--- OUTSIDE RECORDS SUMMARY | 2024-10-24 00:40 | XMS_ITS | Clinical Summary ---
Author Organization [facility] Address [address] [place] [address] Care Team Providers Care Engine Room Helper Name Role Phone Unavailable Primary Care Provider [...] (09/23/2019 7:43 PM CDT): Sleep study at [facility] to make part of her record. [...] 04/28/2014 Influenza, Unspecified 02/04/2019(Deferred: Tamar ent Refused) Surgical History Surgery Date Site/Laterality Comments APPENDECTOMY CYST REMOVAL several removed from breast and overies HYSTERECTOMY EYE SURGERY Bilateral 09/2019 & 11/2019 Medical History Medical History Date Comments BMI 33.0-33.9,adult 09/23/2019 Family History Medical History Relation Name Comments Diabetes Father Heart disease Father Heart disease Mother Kidney disease Mother Cancer Mother's Sister Fibromyalgia Sister 1 Family history of fibromyalgia - (Added by TW Conv) COPD Sister 2 Pancreatic cancer Sister 2 2019 -- mets all over on hospice Relation Name Status Comments Father Alive Mother Mother's Sister Sister 1 Sister 2 Social History Tobacco Use Types Packs/Day Years [...] Not on file Not on nasrin e Obstetrics History Last Filed Vital Signs Vital Sign Reading [...] 02/11/2020 9:30 AM CDT Plan of Treatment Health Maintenance Due Date Last Done Comments Albumin Creatinine Ratio, Urine 1955 Breast Cancer Screening-Mammogram 1955 Hepatitis C Screening 1955 Osteoporosis Screening-Bone Density Scan 1955 Dilated Eye Exam 1955 Hepatitis B Screening 1975 Pneumococcal vaccine 65+ (1 of 2 - PCV) 1976 Zoster Vaccine (1 of 2) 2007 Hemoglobin A1C 06/18/2020 12/17/2019 Foot Exam 09/22/2020 09/23/2019 Lipid Panel 12/16/2020 12/17/2019 eGFR 12/16/2020 12/17/2019 Depression Screening 01/04/2021 01/05/2020, 12/17/2019, 09/23/2019 Fall Risk Assessment 01/04/2021 01/05/2020 Well Visit 65+ 2022 01/05/2020 Covid-19 Vaccine (3 - 2023-2 5 season) 2024 08/06/2020, 07/19/2020 Influenza Vaccine (Season Ended) 2025 02/28/2022, 02/11/2020, 02/10/2020, Additional history exists Colon Cancer Screening-Colonoscopy 04/11/2029 04/11/2019, 04/10/2019 DTaP/Tdap/Td Vaccine (2 - Td or Tdap) 05/15/2033 05/15/2023 Colon Cancer Screening-CT Colonography Discontinued 04/11/2019, 04/10/2019 Colon Cancer Screening-DNA Stool Discontinued 04/11/20 19, 04/10/2019 Colon Cancer Screening-FIT Discontinued 04/11/2019, Colon Cancer Screening-Sigmoidoscopy Discontinued 04/11/2019, 04/10/2019 Procedures Procedure Name Priority Date/Time Associated Diagnosis [...] copy faxed has been acknowledged. Queued to: [id number] Blood specimen (specimen) 12/17/2019 9:25 AM CDT 12/17/2019 9:27 AM CDT Narrative [facility] - 12/18/2019 5:36 AM CDT FASTING:YES PATIENT UNABLE TO VOID; ADVISED TO RETURN FOR COLLECTION. FASTING: YES [facility] BLOOD ORDERABLES Final Result [facility] [id number] [facility] [place] [address] * (ABNORMAL) Lipid panel (12/17/2019 9:25 AM CDT) Pathologist [facility] Cholesterol 253(H) <200 mg/dL [facility] [...] equation in the estimation of LDL-C. Niles GARCIA et al. BELL. 2013;310(19): 2402-3841 (http://education.PEAK-IT.Tresorit/faq/WSL566) Chol/HDL ratio 5.0(H) <5.0 (calc) [facility] [...] ADVISED TO RETURN FOR COLLECTION. FASTING: YES us [facility] BLOOD ORDERABLES Final Result [facility] [id number] [place] [phone] * (ABNORMAL) Comprehensive metabolic panel (12/17/2019 9:25 [...] approximately 13% higher for people identified as -Slovenian. eGFR NON-AFR. LATVIAN 43(L) > OR = 60 mL/min/1. 73m2 [...] LAB BLOOD ORDERABLES Final Result [facility] [id number] [place] [phone] * Colonoscopy (04/11/2019) Anatomical Region Laterality Modality Other Historical Provider ENDOSCOPY PROCEDURES Aga l Result from Last 3 Months or Most Recently Relevant to Health Maintenance Insurance
[2024-10-24 07:11] VITALS: BP 108/64; PULSE 76; RESP 16; TEMP 36.7; O2SAT 99; BMI 24.7
[2024-10-24] MEDS: LACTATED RINGERS 1,000 ML 150 ML IV CONT (07:23)
--- NOTE | 2024-10-24 07:49 | WPDANESEPPF ---
Anes - Initial Pre Proc Eval Procedure: Operation Date: 10/24/24 08:30 Proposed Procedures p Colonoscopy - Vishal Licea MD Date/Time: 10/24/24 07:49 Surgeon: Vishal Licea MD Pre Op Diagnosis: Personal history of colon polyps, unspecified Patient Data Age: 69 Gender: F Height: 1.63 m Weight: 65.4 kg Last Vital Signs Temp 98.1 F 10/24/24 07:11 Pulse 76 10/24/24 07:11 Resp 16 10/24/24 07:11 BP 108/64 10/24/24 07:11 Pulse Ox 99 10/24/24 07:11 O2 Del Method Room Air 10/24/24 07:11 Allergies Allergy/AdvReac Type Severity Reaction Status Date / Time erythromycin base Allergy Mild Unknown Verified 10/24/24 07:10 ANTIINFLAMMATORY MEDS Allergy Mild Unknown Uncoded 10/24/24 07:10 Home Medications ?Medication ?Instructions ?Recorded ?Confirmed ?Type paroxetine HCl 20 mg tablet 30 mg PO QAM 04/07/19 10/24/24 History rosuvastatin 40 mg tablet 10 mg PO DAILY 04/07/19 10/24/24 History levothyroxine 25 mcg tablet 25 mcg PO DAILY 11/01/22 10/24/24 History (Unithroid) chlorthalidone 25 mg tablet 12.5 mg PO DAILY 10/08/24 10/24/24 History ergocalciferol (vitamin D2) 1,250 50,000 unit PO WEEKLY 10/08/24 10/24/24 History mcg (50,000 unit) capsule icosapent ethyl 1 gram capsule 2 g PO BID 10/08/24 10/24/24 History (Vascepa) lisinopril 40 mg tablet 40 mg PO DAILY 10/08/24 10/24/24 History Patient hx anesthesia problems: none Family hx anesthesia problems: none Results Review: All pre-operative results and documents have been reviewed as part of the pre-operative evaluation. [facility] Past Medical History Medical History Anxiety Arthritis Diabetes Hyperlipidemia Hypertension Hypothyroid IBS (irritable bowel syndrome) ISELA (obstructive sleep apnea) Screening mammogram, encounter for Vitamin D deficiency Surgical History Surgical History H/O hysterectomy with oophorectomy (~1992) History of appendectomy (~1973) History of breast biopsy 1983 rt breast--negative 1985 lt breast--negative History of cataract surgery History of removal of neck cyst (10/11/15) epidermal inclusion cyst Family History Family History Father Heart disease Mother Emphysema lung Kidney disease Sibling Malignant tumor of pancreas sister Grandparent Diabetes mellitus maternal grandmother Other Diabetes mellitus maternal uncle Social History Social History (Updated 11/01/22 @ 09:30 by Berenice Danielle Dre) Smoking status: Never smoker Alcohol intake: never Substance use: never Substance use type: does not use Lack of Transportation: No Lack of Food: Sometimes True Current Housing: I Have Housing Concerned About Future Housing: No Difficulty Paying Gas/Electric Bills: No Difficulty Paying for Meds: No Currently Unemployed: No Education: High School Diploma/GED Difficulty w/ Childcare or Family Care: No Living arrangements: other Additional living arrangements comments: Occupation/Education: retired Gender identity (if verbalized by the patient): Female Sexual Orientation (if Verbalized by the Patient): Straight or Heterosexual Anes - Eval Final PreProcedure Day of Procedure 10/24/24 07:49 Patient weight: normal Heart: regular rate and rhythm Lungs: clear to auscultation Airway: Mallampati scale class II Neurological: alert and oriented Last oral intake: >/= 8 hours ASA classification: III Emergent: no Anesthetic plan: proceed Anesthesia type and monitoring: general GIVS and standard monitoring Results Review: All pre-operative results and documents have been reviewed as part of the pre-operative evaluation. Informed Consent: The patient's anesthetic plan and its attendant risks and benefits were discussed with the patient/family/POA. Questions were solicited and answers provided to the satisfaction of the patient/family/POA.
--- NOTE | 2024-10-24 08:05 | PM.HPGS ---
History of Present Illness History of Present Illness Consent: Risks, benefits, and alternatives have been discussed and questions answered. Patient agrees to proceed with procedure. Chief complaint: Personal history of colon polyps, unspecified Narrative: Holly Fournier is a 69 year old female with colon polyp in 2019 Review of Systems Review of Systems: All systems reviewed & are unremarkable except as noted in HPI and below PMFSH Past Medical History Medical History (Updated 10/24/24 @ 08:06 by Vishal Licea MD) Colon polyp Screening mammogram, encounter for Vitamin D deficiency Anxiety IBS (irritable bowel syndrome) Diabetes Hypothyroid Arthritis ISELA (obstructive sleep apnea) Hypertension Hyperlipidemia Surgical History Surgical History History of removal of neck cyst (10/11/15) epidermal inclusion cyst History of cataract surgery History of breast biopsy 1983 rt breast--negative 1985 lt breast--negative History of appendectomy (~1973) H/O hysterectomy with oophorectomy (~1992) Family History Family History Father Heart disease Mother Emphysema lung Kidney disease Sibling Malignant tumor of pancreas sister Grandparent Diabetes mellitus maternal grandmother Other Diabetes mellitus maternal uncle Social History Social History (Updated 11/01/22 @ 09:30 by MALOU Narvaez) Smoking status: Never smoker Alcohol intake: never Substance use: never Substance use type: does not use Lack of Transportation: No Lack of Food: Sometimes True Current Housing: I Have Housing Concerned About Future Housing: No Difficulty Paying Gas/Electric Bills: No Difficulty Paying for Meds: No Currently Unemployed: No Education: High School Diploma/GED Difficulty w/ Childcare or Family Care: No Living arrangements: other Additional living arrangements comments: Occupation/Education: retired Gender identity (if verbalized by the patient): Female Sexual Orientation (if Verbalized by the Patient): Straight or Heterosexual Meds Home Medications and Allergies Home Medications ?Medication ?Instructions ?Recorded ?Confirmed ?Type paroxetine HCl 20 mg tablet 30 mg PO QAM 04/07/19 10/24/24 History rosuvastatin 40 mg tablet 10 mg PO DAILY 04/07/19 10/24/24 History levothyroxine 25 mcg tablet 25 mcg PO DAILY 11/01/22 10/24/24 History (Unithroid) chlorthalidone 25 mg tablet 12.5 mg PO DAILY 10/08/24 10/24/24 History ergocalciferol (vitamin D2) 1,250 50,000 unit PO WEEKLY 10/08/24 10/24/24 History mcg (50,000 unit) capsule icosapent ethyl 1 gram capsule 2 g PO BID 10/08/24 10/24/24 History (Vascepa) lisinopril 40 mg tablet 40 mg PO DAILY 10/08/24 10/24/24 History Allergies Allergy/AdvReac Type Severity Reaction Status Date / Time erythromycin base Allergy Mild Unknown Verified 10/24/24 07:10 ANTIINFLAMMATORY MEDS Allergy Mild Unknown Uncoded 10/24/24 07:10 Vital Signs Vital Signs - 24 hr 10/24/24 07:11 Temperature 98.1 F Pulse Rate 76 Respiratory Rate 16 Blood Pressure 108/64 Pulse Oximetry 99 Oxygen Delivery Room Air Exam Const: General: comfortable and no acute distress HENMT: Face/Nose/Sinus: Normal nares present Eyes: General: appearance normal, both eyes and all related structures Neck: Neck: no JVD Resp: Auscultation: clear to auscultation bilaterally Cardio: Rate: regular rate Rhythm: regular rhythm GI: Inspection: non-distended GI Palp: Yes Soft to palpation Skin: General skin exam: normal color Neuro: Speech: normal speech Extrem: General: normal to inspection Psych: Mental Status: mental status grossly normal Assessment and Plan Assessment and plan (1) Colon polyp: Code(s): K63.5 - Polyp of colon Status: Acute Assessment and Plan: colonoscopy
--- NOTE | 2024-10-24 08:21 | S_PTH ---
PATIENT: Holly Fournier LOC: [facility]#:[id number] AGE/SX: 69/F ROOM: RE10/24/[address]: Vishal Licea MD : 1955 BED: DIS: 10/24/2024 SPEC #: [id number] RECD: 10/24/24 09:45 STATUS: JEAN CARLOS COLLINS #: [id number] SARAH: 10/24/24 08:[address]: Vishal Licea DEPT: [facility] Surgical RECD BY: Vla Jean ENTERED: 10/24/24 09:45 SP TYPE: Surgical OTHR DR: Sabine HoltMD Tissues: A - Colon Polypectomy Procedures: Hematoxylin and Eosin Stain Gross and Microscopic Level 4
[2024-10-24 08:22] VITALS: BP 83/37; PULSE 60; RESP 15; O2SAT 94
[2024-10-24 08:32] VITALS: BP 96/40; PULSE 65; RESP 21; O2SAT 100
[2024-10-24 08:42] VITALS: BP 104/53; PULSE 66; RESP 16; O2SAT 99
== END 2024-10-24 08:52 | disposition home or self-care (01) ==
PROVIDERS: PCP Internal Medicine; Referring Provider Internal Medicine; Visit Provider Internal Medicine Gastroenterology
PROC: 0DJD8ZZ Inspection of Lower Intestinal Tract, Via Natural or Artificial Opening Endoscopic (ICD-10-PCS; CPT 45378; principal; 2024-10-24 08:30)
DX: Z12.11 Encounter for screening for malignant neoplasm of colon (principal); D12.3 Benign neoplasm of transverse colon; K64.8 Other hemorrhoids
CPT/HCPCS: 45385; 88305; J2003; J2704; J7120